=== PATIENT | male | born 1965 | race Caucasian/White ===

== ENCOUNTER 2019-09-01 22:34 | Inpatient (IN) | payer BC, OTHER, SELFPAY ==
--- OUTSIDE RECORDS SUMMARY | 2019-09-01 22:36 | XMS REPORT | Clinical Summary ---
:1965 Author Organization [facility] Address [address] [place] [id number] Care Team Providers Name Role Phone Asked, Pcp Primary Care Provider Unavailable Allergies Active Allergy Reactions Severity Noted Date Comments Ciprofloxacin 01/05/2016 Medications No known medications Active Problems Problem Noted Date External hemorrhoids 01/05/2016 Social History Tobacco Use Types Packs/Day Years Used Date Never Smoker Alcohol Use Drinks/Week oz/Week Comments Yes 2 Standard drinks or equivalent 2.0 Sex Assigned at Date Recorded Not on file Job Start Date Occupation Industry Not on file Not on file Not on file Travel History Travel Start Travel End No recent travel history available. 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
--- OUTSIDE RECORDS SUMMARY | 2019-09-01 22:37 | XMS REPORT | Continuity of Care Document ---
:1965 Author Organization [employer] Care Team Providers Name Role Phone [employer] Unavailable Un available Problems Problem Status Onset Classification Date Comments Sourc e Date Reported Diverticulosis of 11/25/19 11/26/2017 [facility] large intestine 18 without perforation or abscess with bleeding Second degree 11/25/19 11/26/2017 [facility] hemorrhoids 18 Crohn's disease Active Problem 11/26/2017 Satish gical (disorder[facility] [place] Hemorrhoids Active Problem 11/26/2017 Surgica l (disorder) [facility] [place] Medications Medication Details Route Status Patient Ordering Order Source Instructions Provider Date propofol 50 mg = 5 mL, Inactive 11/24/ [facility] Emulsion, IV, 2018 Once, first dose 11/24/17 8:22:00 CDT, stop date 11/24/17 8:22:00 CDT propofol 50 mg = 5 mL, Inactive 11/24/ [facility] Emulsion, IV, 2017 Once, first dose 11/24/17 8:19:00 CDT, stop date 11/24/17 8:19:00 CDT propofol 50 mg = 5 mL, Inactive 11/24/ [facility] Emulsion, IV, 2017 Once, first dose 11/24/17 8:16:00 CDT, stop date 11/24/17 8:16:00 CDT lidocaine 3 mL, Inactive 11/24/ [facility] Injection, 2018 IV, Once, first dose 11/24/17 8:13:00 CDT, stop date 11/24/17 8:13:00 CDT propofol 150 mg = 15 Inactive 11/24/ [facility] mL, Emulsion, 2018 IV, Once, first dose 11/24/17 8:13:00 CDT, stop date 11/24/17 8:13:00 CDT Lidocaine 2% 0.2 0.2 mL, Inactive 11/24/ [facility] mL IV Start Injection, 2017 [[place]] Subcutaneous, Once PRN for other (see comment), first dose 11/24/17 7:07:00 CDT LR 1,000 mL 1,000 mL, IV, Inactive 11/24/ [facility] 30 mL/hr, 2017 start date 11/24/17 7:07:00 CDT Misc Medication 800 mL, Inactive Corin 02/04/ Surgica l Soln-IV, IV, 2016 Specialty Once, first Hospital dose 02/05/16 of [place] 10:21:00 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, [place] stop date 02/05/16 10:21:00 CNC LATHE 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 propofol 60 mg = 6 mL, Inactive Corin 02/04/ Surgical Emulsion, IV, 2016 Specialty Once, first Hospital dose 02/05/16 [place] 7:21:00 CNC LATHE 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, [place] stop date 02/05/16 7:21:00 CNC LATHE 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 propofol 60 mg = 6 mL, Inactive Corin 02/04/ Surgical Emulsion, IV, 2016 Specialty Once, first Hospital dose 02/05/16 [place] 7:15:00 CNC LATHE 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, [place] stop date 02/05/16 7:15:00 CNC LATHE 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 Humira mg, Active 02/04/ Surgical Subcutaneous, 2016 Specialty q2wk, 0 Hospital Refill(s) of [place] Humira mg, Active 02/04/ [facility] Subcutaneous, 2016 q2wk, 0 Refill(s) lidocaine 2 mL, Inactive Corin 02/04/ Surgical Injection, 2016 Specialty IV, Once, Hospital first dose of [place] 02/05/16 [place] 7:11:00 CNC LATHE 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, stop date 02/05/16 7:11:00 CNC LATHE 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 propofol 180 mg = 18 Inactive Corin 02/04/ Surgical mL, Emulsion, 2016 Specialty IV, Once, Hospital first dose of [place] 02/05/16 [place] 7:11:00 CNC LATHE 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, stop date 02/05/16 7:11:00 CNC LATHE 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 Lidocaine 2% 0.2 0.2 mL, Inactive Marisel 02/04/ Surgic al mL IV Start Injection, 2015 Specialty [[facility]] Subcutaneous, Hospit al Once PRN for of [place] other (see [facility] comment), first dose 02/05/16 7:08:00 CNC LATHE 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 LR 1,000 mL 1,000 mL, IV, Inactive Marisel 02/04/ Surgi nichole 30 mL/hr, 2015 Specialty start date Hospital 02/05/16 [facility] [place] 7:08:00 CNC LATHE 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 [place] LR 1,000 mL 1,000 mL, IV, Inactive Daniel 12/08/ Surgi nichole 75 mL/hr, 2016 Specialty start date Hospital 12/09/15 of [place] 15:45:00 CDT [place] Saline Lock Flush 10 mL, Soln, Inactive Dainel 12/08/ Surgical IV Push, As 2016 Specialty Indicated PRN Hospital for flush, of [place] first dose [place] 12/09/15 15:45:00 CDT diphenhydrAMINE 25 mg = 0.5 Inactive Daniel 12/08/ Satish gical mL, 2015 Specialty Injection, IV Hospital Push, Once of [place] PRN for [place] itching, first dose 12/09/15 15:45:00 CDT ondansetron 8 mg = 1 Inactive Daniel 12/08/ Surgical tabs, 2015 Specialty Tab-Dis, Hospital Oral, Once of [place] PRN for [place] nausea/vomiti ng, first dose 12/09/15 15:45:00 CDT labetalol 5 mg = 1 mL, Inactive Daniel 12/08/ Surgical Injection, IV 2015 Specialty Push, As Hospital Indicated PRN of [place] for [place] hypertension, first dose 12/09/15 15:45:00 CDT Dilaudid 0.5 mg = 0.25 Inactive Daniel 12/08/ Surgical mL, 2016 Specialty Injection, IV Hospital Push, q10min of [place] PRN for pain [place] severe (7-10), first dose 12/09/15 15:45:00 CDT Xopenex 0.63 mg/3 0.63 mg = 3 Inactive Daniel 12/08/ S urgical mL inhalation mL, Soln, 2016 Specialt y solution NEB, Once PRN Hospital for wheezing, of [place] first dose [place] 12/09/15 15:45:00 CDT Demerol HCl 12.5 mg = Inactive Daniel 12/08/ Surgical 0.25 mL, 2016 Specialty Injection, IV Hospital Push, Once of [place] PRN for [place] shivers, first dose 12/09/15 15:45:00 CDT albuterol 2.5 2.5 mg = 3 Inactive Daniel 12/08/ Surgic al mg/3 mL (0.083%) mL, Soln, 2016 Speci alty inhalation NEB, Once PRN Hospita l solution for wheezing, of [place] first dose [place] 12/09/15 15:45:00 CDT Lactated Ringers IV, start Hayley Davis 12/08/ Surg ical Injection date 12/09/152015 Specialt y 15:44:00 CDT, Hospital stop date of [place] 12/09/15 [place] 15:44:00 CDT ondansetron 4 mg = 2 mL, Inactive Daniel 12/08/ Surgic al Injection, 2016 Specialty IV, Once, Hospital first dose of [place] 12/09/15 [place] 15:31:00 CDT, stop date 12/09/15 15:31:00 CDT metroNIDAZOLE 500 mg, Inactive Daniel 12/08/ Surgical Soln-IV, IV, 2016 Specialty Once, first Hospital dose 12/09/15 [place] 15:16:00 CDT, [place] stop date 12/09/15 15:16:00 CDT dexamethasone 8 mg = 2 mL, Inactive Daniel 12/08/ Surg ical Injection, 2016 Specialty IV, Once, Hospital first dose of [place] 12/09/15 [place] 15:13:00 CDT, stop date 12/09/15 15:13:00 CDT fentaNYL 100 mcg = 2 Inactive Daniel 12/08/ Surgical mL, 2016 Specialty Injection, Hospital IV, Once, of [place] first dose [place] 12/09/15 15:10:00 CDT, stop date 12/09/15 15:10:00 CDT lidocaine 3 mL, Inactive Daniel 12/08/ Surgical Injection, 2016 Specialty IV, Once, Hospital first dose of [place] 12/09/15 [place] 15:10:00 CDT, stop date 12/09/15 15:10:00 CDT propofol 150 mg = 15 Inactive Daniel 12/08/ Surgical mL, Emulsion, 2016 Specialty IV, Once, Hospital first dose of [place] 12/09/15 [place] 15:10:00 CDT, stop date 12/09/15 15:10:00 CDT Misc Medication 1,000 mL, Inactive Daniel 12/08/ Surgi nichole Soln-IV, IV, 2016 Specialty Once, first Hospital dose 12/09/15 [place] 15:07:00 CDT, [place] stop date 12/09/15 15:07:00 CDT midazolam 1 mg = 1 mL, Inactive Daniel 12/08/ Surgical Injection, 2016 Specialty IV, Once, Hospital first dose of [place] 12/09/15 [place] 15:05:00 CDT, stop date 12/09/15 15:05:00 CDT fentaNYL 50 mcg = 1 Inactive Daniel 12/08/ Surgical mL, 2016 Specialty Injection, Hospital IV, Once, of [place] first dose [place] 12/09/15 15:05:00 CDT, stop date 12/09/15 15:05:00 CDT fentaNYL 50 mcg = 1 Inactive Daniel 12/08/ Surgical mL, [address] [facility] Injection, [facility] IV, Once, of [place] first dose [place] 12/09/15 15:01:00 CDT, stop date 12/09/15 15:01:00 CDT midazolam 1 mg = 1 mL, Inactive Daniel 12/08/ Surgical Injection, 2015 Specialty IV, Once, Hospital first dose of [place] 12/09/15 [place] 15:01:00 CDT, stop date 12/09/15 15:01:00 CDT Flagyl IVPB 500 mg, Inactive Mallory 12/08/ Surgical Soln-IV, IV [address] [facility] Piggyback, [facility] Once, infuse of [place] over 60 [place] minutes, first dose 12/09/15 14:00:00 CDT, stop date 12/09/15 14:00:00 CDT, Prophylaxis LR 1,000 mL 1,000 mL, IV, Inactive Vasquez 12/08/ Surgi nichole 30 mL/hr, 2015 Specialty start date Hospital 12/09/15 [place] 13:22:00 CDT [place] Lidocaine 2% 0.2 0.2 mL, Inactive Vasquez 12/08/ Surgic al mL IV Start Injection, 2015 Specialty [[facility]] Subcutaneous, Hospit al Once PRN for of [place] other (see [facility] comment), first dose 12/09/15 13:22:00 CDT Humira 80 mg, No Longer 12/07/ Surgical Subcutaneous, Active 2015 Specialty q2wk, 0 Hospital Refill(s), of [place]ns [place] Humira 80 mg, No Longer 12/07/ [facility] Subcutaneous, Active 2015 q2wk, 0 Refill(s), crohns Allergies, Adverse Reactions, Alerts Substance Category Reaction Severity Reaction Status Date Comments S ource type Reported Cipro Assertion rash Drug Active [facility] allergy Immunizations No Data Provided for This Section Results No Data Provided for This Section Pathology Reports No Data Provided for This Section Diagnostic Reports No Data Provided for This Section Consultation Notes No Data Provided for This Section Discharge Summaries No Data Provided for This Section History and Physicals No Data Provided for This Section Vital Signs Vital Sign Value Date Comments Source Peripheral Pulse Rate 82 11/24/2017 [facility] Respitory Rate 14 11/24/2017 [facility] Systolic (mm Hg) 124 11/24/2017 [facility] Diastolic (mm Hg) 81 11/24/2017 [facility] Systolic (mm Hg) 130 11/24/2017 [facility] Diastolic (mm Hg) 82 11/24/2017 [facility] Respitory Rate 20 11/24/2017 [facility] Respitory Rate 16 11/24/2017 [facility] Heart Rate 57 11/24/2017 [facility] Systolic (mm Hg) 110 11/24/2017 [facility] Diastolic (mm Hg) 65 11/24/2017 [facility] Temperature Oral (F) 36.2 [place] 11/24/2017 [facility] Heart Rate 57 11/24/2017 [facility] Temperature Oral (F) 36.7 [place] 11/24/2017 [facility] Peripheral Pulse Rate 58 11/24/2017 [facility] Weight Measured 96 11/24/2017 [facility] Height 177 cm 11/24/2017 [facility] Weight Measured 96 11/19/2017 [facility] Height 177 cm 11/19/2017 [facility] Systolic (mm Hg) 127/83 02/05/2016 [facility] [place] Respitory Rate 16 [facility]/05/[facility] [place] Peripheral Pulse Rate 58 02/05/2016 [facility]ic [facility] [place] Systolic (mm Hg) 127/83 02/05/2016 [facility] [place] Respitory Rate 18 02/05/2016 [facility] [place] Heart Rate 62 02/05/2016 [facility] [place] Systolic (mm Hg) 104/73 02/05/2016 [facility] [place] Heart Rate 56 02/05/2016 [facility] [place] Respitory Rate 16 02/05/[facility] [place] Heart Rate 61 02/05/2016 Surgical [facility] [place] Temperature Oral (F) 37.1 Estella 02/05/2016 [facility] [place] Weight 30.64 02/05/2016 Surgical Spec[facility] [place] Height 177 cm 02/05/2016 Surgical Specia [facility] [place] Weight 96 02/05/2016 [facility] [place] Peripheral Pulse Rate 69 02/05/2016 Surgic al [facility] [place] Temperature Oral (F) 36.5 [place] [facility] [place] Weight 30.42 01/18/2016 [facility] [place] Height 177.80 cm 01/18/2016 [facility] [place] Weight 96.16 01/18/2016 [facility] [place] Peripheral Pulse Rate 77 12/09/2015 Surgic [facility] [place] Systolic (mm Hg) 157/93 12/09/2015 [facility] [place] Respitory Rate 16 12/09/2015 [facility] [place] Heart Rate 68 12/09/2015 [facility] [place] Systolic (mm Hg) 139/98 12/09/2015 [facility] [place] Respitory Rate 14 12/09/[facility] [place] Respitory Rate 12 12/09/2015 [facility] [place] Systolic (mm Hg) 150/85 12/09/2015 [facility] [place] Heart Rate 70 12/09/2015 [facility] [place] Heart Rate 75 12/09/2015 [facility] [place] Temperature Oral (F) 36.7 Estella [facility]09[facility] [place] Height 177.80 cm 12/09/2015 [facility] [place] Weight 30.42 12/09/2015 Surgical [facility] [place] Weight 96.16 12/09/2015 [facility] [place] Temperature Oral (F) 36.9 Est[place] [facility] [place] Peripheral Pulse Rate 63 12/09/2015 [facility]ic [facility] [place] Peripheral Pulse Rate 68 12/08/2015 [facility]ic [facility] [place] Weight 96.16 12/08/2015 Surgical [facility] [place] Height 178 cm 12[facility]08/2015 [facility] [place] Weight 30.35 12/08/2015 Surgical [facility] [place] Encounters Location Location Encounter Encounter Reason Attending ADM DC Stat us Source Details Type Number For Provider Date Date Visit [facility] Outpatient [id number] Ali 12/08 12/08 Discharged Mazariegos rgical Mallory /2015 [facility]ty [facility] Outpatient [id number] Jaya 02/04 02/04 Active Surgi nichole Arroyo /2015 Specialty [facility] Outpatient [id number] Jaya 11/24 11/24 Active Surgi [facility] Dina /2017 Specialty [facility] Outpatient [id number] [place] 11/24 11/24 CUSTODIAL I Teja Arroyo /2017 [facility] Procedures Procedure Code Date Perfomer Comments Source COLONOSCOPY 11/24/2017 auto-populated Surgical FLEXIBLE; from documented Specialty DIAGNOSTIC; INCL. surgical case [facility] [place] SPECIMENS [id number] JANET Singh (Other)<sup>1</mazariegos p> EXCISION FULL 12/09/2015 Mallory 3auto-populated Surgic al THICKNESS TUMOR from documented Spec ialty BY PROCTOTOMY surgical case [facility] of [id number] [place] (Other)<sup>3</mazariegos p> Cholecystectomy<s [id number] 02/27/2014 1at yarsanism Surg ical up>1</sup> [place] Specialty [facility] incisional hernia 02/28/2008 Surgica l Specialty [facility] colon 02/27/2003 2due to crohns. Surgical resction<sup>2</s Special ty up> [facility] Colonoscopy [id number] Surgical Specialty [facility] Assessment and Plan No Data Provided for This Section Plan of Care No Data Provided for This Section Social History Social History Date Source Social History TypeResponse 12/08/2015 [facility] Smoking Status Never smoker Family History No Data Provided for This Section Advance Directives No Data Provided for This Section Functional Status No Data Provided for This Section
--- OUTSIDE RECORDS SUMMARY | 2019-09-01 22:38 | XMS REPORT | Continuity of Care Document ---
:1965 Author Organization [facility] t Address [address] [place] [address] Care Team Providers Name Role Phone Asked, Pcp Primary Care Physician Unavailable Dina Attending Clinician Dina Admitting Clinician Problems Condition Condition Condition Status Onset Resolution Last Treating Co mments Source Name Details Category Date Date Treatment Clinician Date External External Disease Active 2015-02 [place] hemorrhoid hemorrhoid 03-06 Me thodi s s 00:00: st 00 Crohn's Problem Active 2017-11-26 [place] disease 04:00:48 l (disorder) Crohn's Her harvey disease (disorder) Active Problem 11/26/[address] [facility] Hemorrhoid Problem Active 2017-11-26 M emoria s 04:00:48 l (disorder) Luis M n Hemorrhoid s (disorder) Active Problem 11/26/2017 [facility] Diverticul Problem 2017-11-26 2017-11-26 Memoria osis of 11-24 04:00:48 04:00:48 l large 13:32: Teja intestine Diverticul 00 without osis of perforatio large n or intestine abscess without with perforatio bleeding n or abscess with bleeding 8 11/26/2017 [facility] Second Problem 2017-11-26 2017-11-26 M emoria degree 11-24 04:00:48 04:00:48 l hemorrhoid Second 13:31: Herm agustin s degree 00 hemorrhoid s 11/24/2017 11/26/2017 [facility] Allergies, Adverse Reactions, Alerts Allergy Allergy Status Severity Reaction(s) Onset Inactive Treating Comm ents Source Name Type Date Date Clinician Michael Zicooper Active 2015-02 [place] xacin ty to 03-06 Methodi adverse 00:00: st reaction 00 s to drug Cipro Cipro Active Memoria l Teja Social History Social Habit Start Date Stop Date Quantity Comments Source Sex Assigned At [facility] ethodist Alcohol intake 2016-01-05 2016-01-05 Current drinker [place] 00:00:00 00:00:00 of alcohol (finding) Smoking Status Start Date Stop Date Source Social History [facility] Medications Ordered Filled Start Stop Current Ordering Indication Dosage Frequency Signature Comments Components Source Medication Medication Date Date Medication? Clinician (SIG) Name Name propofol 2017- No 50 mg = 5 [place] 9-28 mL, l 13:22: Emulsion, Teja 00 IV, Once, first dose 11/24/17 8:22:00 CDT, stop date 11/24/17 8:22:00 CDT propofol 2017-0 No 50 mg = 5 [place] 9-28 mL, l 13:19: Emulsion, Teja 00 IV, Once, first dose 11/24/17 8:19:00 CDT, stop date 11/24/17 8:19:00 CDT propofol 2018-0 No 50 mg = 5 [place] 9-28 mL, l 13:16: Emulsion, [place] 00 IV, Once, first dose 11/24/17 8:16:00 CDT, stop date 11/24/17 8:16:00 CDT lidocaine 2018-0 No 3 mL, Memoria -28 Injection, l 13:13: IV, Once, [place] 00 first dose 11/24/17 8:13:00 CDT, stop date 11/24/17 8:13:00 CDT propofol 2018-0 No 150 mg = Memor ia -28 15 mL, l 13:13: Emulsion, [place] 00 IV, Once, first dose 11/24/17 8:13:00 CDT, stop date 11/24/17 8:13:00 CDT Lidocaine 2018-0 Yes 0.2 mL, Memor ia 2% 0.2 mL 11-24 Injection, l IV Start 12:07: Subcutaneo [facility]] 00 , Once PRN for other (see comment), first dose 11/24/17 7:07:00 CDT LR 1,000 mL 2017- No 1,000 mL, M emoria 11-24 IV, 30 l 12:07: mL/hr, [place] start date 11/24/17 7:07:00 CDT Misc 2015-02 No Simon 800 mL, Memoria Medication - Corin Soln-IV, l 16:21: IV, Once, Teja 00 first dose 02/05/16 10:21:00 HISTORY TEACHER, stop date 02/05/16 10:21:00 HISTORY TEACHER propofol 2015-02 No Simon 60 mg = 6 Mem oria - Corin mL, l 13:21: Emulsion, Teja 00 IV, Once, first dose 02/05/16 7:21:00 HISTORY TEACHER, stop date 02/05/16 7:21:00 HISTORY TEACHER propofol 2015-02 No Simon 60 mg = 6 Mem oria - Corin mL, l 13:15: Emulsion, [place] 00 IV, Once, first dose 02/05/16 7:15:00 HISTORY TEACHER, stop date 02/05/16 7:15:00 HISTORY TEACHER Humira 2015-02 Yes mg, Memoria - Subcutaneo l 13:13: us, q2wk, Teja 00 0 Refill(s) Humira 2015-02 Yes mg, Memoria - Subcutaneo l 13:13: us, q2wk, [place] 00 0 Refill(s) lidocaine 2015-02 No Simon 2 mL, Memori a 04-07 Corin Injection, l 13:11: IV, Once, Teja 00 first dose 02/05/16 7:11:00 HISTORY TEACHER, stop date 02/05/16 7:11:00 HISTORY TEACHER propofol 2015-02 No Simon 180 mg = [place] - Corin 18 mL, l 13:11: Emulsion, [place] 00 IV, Once, first dose 02/05/16 7:11:00 HISTORY TEACHER, stop date 02/05/16 7:11:00 HISTORY TEACHER Lidocaine 2015-02 No Homero 0.2 mL, [place] 2% 0.2 mL 04-07 Marsiel TUTTLE Injection, l IV Start 13:08: Subcutaneo [facility] [[facility]] 00 us, Once PRN for other (see comment), first dose 02/05/16 7:08:00 HISTORY TEACHER LR 1,000 mL 2015-02 No Homero 1,000 mL, Memoria 2-09 Marisel TUTTLE IV, 30 l 13:08: mL/hr, start date 02/05/16 7:08:00 HISTORY TEACHER LR 1,000 mL 2015-02 No David 1,000 mL, Memoria 0-12 Sanchez IV, 75 l 20:45: mL/hr, start date 12/09/15 15:45:00 CDT Saline Lock 2015-02 No David 10 mL, M emoria Flush 0-12 Sanchez Soln, IV l 20:45: Push, As Teja 00 Indicated PRN for flush, first dose 12/09/15 15:45:00 CDT diphenhydrA 2015-02 No David 25 mg = Memoria MINE 0-12 Sanchez 0.5 mL, l 20:45: Injection, Teja 00 IV Push, Once PRN for itching, first dose 12/09/15 15:45:00 CDT ondansetron 2015-02 No David 8 mg = 1 Memoria 0-12 Sanchez tabs, l 20:45: Tab-Dis, Teja 00 Oral, Once PRN for nausea/vom iting, first dose 12/09/15 15:45:00 CDT labetalol 2015-02 No David 5 mg = 1 M emoria 0-12 Sanchez mL, l 20:45: Injection, [place] 00 IV Push, As Indicated PRN for hypertensi on, first dose 12/09/15 15:45:00 CDT Dilaudid 2015-02 No David 0.5 mg = Me moria 0-12 Sanchez 0.25 mL, l 20:45: Injection, Teja 00 IV Push, q10min PRN for pain severe (7-10), first dose 12/09/15 15:45:00 CDT Xopenex 2015-02 No David 0.63 mg = Me moria 0.63 mg/3 0-12 Sanchez 3 mL, l mL 20:45: Soln, NEB, [place] inhalation 00 Once PRN solution for wheezing, first dose 12/09/15 15:45:00 CDT Demerol HCl 2016-1 No David 12.5 mg = Memoria 0-12 Sanchez 0.25 mL, l 20:45: Injection, Teja 00 IV Push, Once PRN for shivers, first dose 12/09/15 15:45:00 CDT albuterol 2015-02 No David 2.5 mg = 3 Memoria 2.5 mg/3 mL 0-12 Sanchez mL, Soln, l (0.083%) 20:45: NEB, Once Herm agustin inhalation 00 PRN for solution wheezing, first dose 12/09/15 15:45:00 CDT Lactated 2015-02 No Michael IV, start M emoria Ringers 0-12 Ryan date l Injection 20:44: 12/09/15 Herm agustin 00 15:44:00 CDT, stop date 12/09/15 15:44:00 CDT ondansetron 2015-02 No David 4 mg = 2 Memoria 0-12 Sanchez mL, l 20:31: Injection, [place] 00 IV, Once, first dose 12/09/15 15:31:00 CDT, stop date 12/09/15 15:31:00 CDT metroNIDAZO 2015-02 No David 500 mg, Memoria LE 0-12 Sanchez Soln-IV, l 20:16: IV, Once, [place] 00 first dose 12/09/15 15:16:00 CDT, stop date 12/09/15 15:16:00 CDT dexamethaso 2015-02 No David 8 mg = 2 Memoria ne 0-12 Sanchez mL, l 20:13: Injection, [place] 00 IV, Once, first dose 12/09/15 15:13:00 CDT, stop date 12/09/15 15:13:00 CDT fentaNYL 2015-02 No David 100 mcg = M emoria 0-12 Sanchez 2 mL, l 20:10: Injection, [place] 00 IV, Once, first dose 12/09/15 15:10:00 CDT, stop date 12/09/15 15:10:00 CDT lidocaine 2015-02 No David 3 mL, [place] 0-12 Sanchez Injection, l 20:10: IV, Once, Teja 00 first dose 12/09/15 15:10:00 CDT, stop date 12/09/15 15:10:00 CDT propofol 2015-02 No David 150 mg = Me moria 0-12 Sanchez 15 mL, l 20:10: Emulsion, Teja 00 IV, Once, first dose 12/09/15 15:10:00 CDT, stop date 12/09/15 15:10:00 CDT Misc 2015-02 No David 1,000 mL, Memor ia Medication 0-12 Sanchez Soln-IV, l 20:07: IV, Once, first dose 12/09/15 15:07:00 CDT, stop date 12/09/15 15:07:00 CDT midazolam 2015-02 No David 1 mg = 1 M emoria 0-12 Sanchez mL, l 20:05: Injection, [place] 00 IV, Once, first dose 12/09/15 15:05:00 CDT, stop date 12/09/15 15:05:00 CDT fentaNYL 2015-02 No David 50 mcg = 1 Memoria 0-12 Sanchez mL, l 20:05: Injection, IV, Once, first dose 12/09/15 15:05:00 CDT, stop date 12/09/15 15:05:00 CDT fentaNYL 2015-02 No David 50 mcg = 1 Memoria 0-12 Sanchez mL, l 20:01: Injection, IV, Once, first dose 12/09/15 15:01:00 CDT, stop date 12/09/15 15:01:00 CDT midazolam 2015-02 No David 1 mg = 1 M emoria 0-12 Sanchez mL, l 20:01: Injection, IV, Once, first dose 12/09/15 15:01:00 CDT, stop date 12/09/15 15:01:00 CDT Flagyl IVPB 2015-02 No Ali 500 mg, Mem oria 0-12 Mallory Soln-IV, l 19:00: IV [place] 00 Piggyback, Once, infuse over 60 minutes, first dose 12/09/15 14:00:00 CDT, stop date 12/09/15 14:00:00 CDT, Prophylaxi s LR 1,000 mL 2015-02 No Marito K 1,000 mL, Memoria 0-12 Ovalle IV, 30 l 18:22: mL/hr, [place] 00 start date 12/09/15 13:22:00 CDT Lidocaine 2015- No Marito K 0.2 mL, Mem oria 2% 0.2 mL 0-12 [place] Injection, l IV Start 18:22: Subcutaneo Her harvey [[place]] 00 us, Once PRN for other (see comment), first dose 12/09/15 13:22:00 CDT Humira 2015-02 No 80 mg, Memoria 0-11 Subcutaneo l 14:47: us, q2wk, [place] 00 0 Refill(s), crohns Humira 2015-02 No 80 mg, Memoria 0-11 Subcutaneo l 14:47: us, q2wk, Teja 00 0 Refill(s), crohns Vital Signs Vital Name Observation Time Observation Value Comments Source Respitory Rate 2017-11-24 15:45:00 Memori al [place] Systolic (mm Hg) 2017-11-24 15:45:00 Juan Pablo rial [place] Diastolic (mm Hg) 2017-11-24 15:45:00 Mem orial [place] Systolic (mm Hg) 2017-11-24 13:40:00 Juan Pablo rial Te[place] Diastolic (mm Hg) 2017-11-24 13:40:00 Mem orial [place] Respitory Rate 2017-11-24 13:40:00 Memori al Teja Respitory Rate 2017-11-24 13:30:00 Memori al Teja Heart Rate 2017-11-24 13:30:00 Memorial [place] Systolic (mm Hg) 2017-11-24 13:30:00 Juan Pablo rial [place] Diastolic (mm Hg) 2017-11-24 13:30:00 Mem orial Teja Temperature Oral (F) 2017-11-24 13:20:00 36.2 [facility] [place] Heart Rate 2017-11-24 13:20:00 [facility] [place] Temperature Oral (F) 2017-11-24 12:03:00 36.7 [facility] [place] Height 2017-11-24 12:03:00 177 cm Memorial Teja Height 2017-11-19 19:48:00 177 cm [facility] [place] Systolic (mm Hg) 2016-02-05 14:27:00 Juan Pablo rial Teja Respitory Rate 2016-02-05 14:27:00 Memori al [place] Systolic (mm Hg) 2016-02-05 13:40:00 Juan Pablo rial [place] Respitory Rate 2016-02-05 13:40:00 Memori al Teja Heart Rate 2016-02-05 13:40:00 [facility] [place] Systolic (mm Hg) 2016-02-05 13:30:00 Juan Pablo rial Teja Heart Rate 2016-02-05 13:30:00 [facility] [place] Respitory Rate 2016-02-05 13:30:00 Memori al [place] Heart Rate 2016-02-05 13:20:00 [facility] [place] Temperature Oral (F) 2016-02-05 13:20:00 37.1 [facility] [place] Weight 2016-02-05 13:10:00 [facility] [place] Height 2016-02-05 13:10:00 177 cm [facility] [place] Temperature Oral (F) 2016-02-05 13:10:00 36.5 [facility] [place] Weight 2016-01-18 22:32:00 [facility] [place] Height 2016-01-18 22:32:00 177.80 cm [facility] [place] Systolic (mm Hg) 2015-12-09 21:56:00 Juan Pablo rial [place] Respitory Rate 2015-12-09 21:56:00 Memori al [place] Heart Rate 2015-12-09 21:20:00 [facility] [place] Systolic (mm Hg) 2015-12-09 21:20:00 Juan Pablo rial [place] Respitory Rate 2015-12-09 21:20:00 Memori al Teja Respitory Rate 2015-12-09 21:10:00 Memori al [place] Systolic (mm Hg) 2015-12-09 21:10:00 Juan Pablo rial [place] Heart Rate 2015-12-09 21:10:00 [facility] [place] Heart Rate 2015-12-09 21:00:00 [facility] [place] Temperature Oral (F) 2015-12-09 20:40:00 36.7 [facility] [place] Height 2015-12-09 18:26:00 177.80 cm [facility] [place] Weight 2015-12-09 18:26:00 [facility] [place] Temperature Oral (F) 2015-12-09 18:26:00 36.9 [facility] [place] Height 2015-12-08 14:35:00 178 cm [facility] [place] Weight 2015-12-08 14:35:00 [facility] [place] Procedures Procedure Date / Time Performed Performing Clinician [facility] e COLONOSCOPY FLEXIBLE; 2017-11-24 13:15:00 Randy Silva DIAGNOSTIC; INCL. COLLECTION OF SPECIMENS [id number] (Other)<sup>1</sup> EXCISION FULL THICKNESS 2015-12-09 20:26:00 Linwood Tejada TUMOR BY PROCTOTOMY [id number] (Other)<sup>3</sup> Cholecystectomy<sup>1</hearn 2014-02-27 00:00:00 Me morial [place] p> incisional hernia 2008-02-28 00:00:00 [facility] ermann colon 2003-02-27 00:00:00 [facility] harvey resction<sup>2</sup> Colonoscopy [facility] Plan of Care Planned Activity Planned Date Details Comments Source Future Scheduled 2019-09-28 INFLUENZA VACCINE [place] Test 00:00:00 [code = INFLUENZA VACCINE] Future Scheduled 2015-12-24 COLONOSCOPY SCREENING [place] Test 00:00:00 [code = COLONOSCOPY SCREENING] Future Scheduled 2015-12-24 SHINGLES VACCINES [place] Test 00:00:00 (#1) [code = SHINGLES VACCINES (#1)] Encounters Start End Encounter Admission Attending Care Care Encounter Source Date/Time Date/Time Type Type Clinicians Facility Department ID 2018-10-26 2018-10-26 Emergency E [facility] FB [id number] FB 13:47:00 13:47:00 2017-11-24 2017-11-24 Outpatient [place], [id number] 06:43:27 09:37:00 Jaya Navarro 2016-02-05 2016-02-05 [place] [id number] Memoria 06:23:42 08:10:00 [facility] 2015-12-09 2015-12-09 [place] [id number] Memoria 13:06:35 16:54:00 l [facility] [place] Results This patient has no known results.
[2019-09-01] MEDS ORDERED: PROMETHAZINE INJ 25 MG/ML AMP ONE (23:09)
[2019-09-01] MEDS ORDERED: NA CHLORIDE 0.9% 1,000 ML ONE (23:09)
[2019-09-01 23:25] LABS: Absolute Lymphocytes (CBC) 3.8 K/uL (0.7-4.9); Basophils % 0.4 % (0-1.3); Hematocrit 44.7 % (39.6-49.0); Lymphocytes % 30.1 % (15.3-44.8); MPV 8.7 fL (7.6-11.3); RBC Red Blood Cell Count 4.98 M/uL (4.33-5.43)
[2019-09-01 23:32] LABS: Albumin 3.7 g/dL (3.4-5.0); Bilirubin Direct 0.2 mg/dL (0-0.2); Bilirubin Total 0.7 mg/dL (0.2-1.0); Potassium 3.6 mmol/L (3.5-5.1)
[2019-09-02 00:10] LABS: Urine Blood TRACE (NEG); Urine Glucose NEGATIVE (NEG); Urine Protein TRACE (NEG); Urine Specific Gravity >1.030 (1.005-1.030)
[2019-09-02] MEDS ORDERED: MEPERIDINE HCL 50 MG/ML ONE (00:51)
[2019-09-02] MEDS ORDERED: CEFTRIAXONE/SWI 1gm 1 GM/10 ML SYR ONE (01:41)
[2019-09-02] MEDS ORDERED: METRONIDAZOLE 500mg IVPB 500 MG/100 ML BAG IV ONE (01:41)
[2019-09-02] MEDS ORDERED: METHYLPREDNISOLONE 125 MG INJ ONE (01:41)
--- NOTE | 2019-09-02 01:54 | ER ---
Nurse's Notes [facility] Name: Tony Wen Age: 53 yrs Sex: Male : 1965 Arrival Date: 09/01/2019 Time: 22:37 Bed 8 Private MD: Diagnosis: Crohn's disease [regional enteritis];Possible small bowel obstruction Presentation: 08/31 22:52 Chief complaint: Patient states: C/O severe abdominal boating and abdominal cramping wh that started yesterday. Pt feels nauseated with some vomiting. Pt states Hx of Crohns. Coronavirus screen: Proceed with normal triage. Patient denies a cough. Patient denies shortness of breath or difficulty breathing. Patient denies measured and/or subjective temperature greater than 100.4F prior to today's visit. Patient denies travel on a cruise ship or to a country the [facility] currently lists as an affected area. Patient denies contact with known and/or suspected case of COVID-19. Ebola Screen: Patient negative for fever greater than or equal to 101.5 degrees Fahrenheit, and additional compatible Ebola Virus Disease symptoms Patient denies exposure to infectious person. Initial Sepsis Screen: Does the patient meet any 2 criteria?. Initial Sepsis Screen: Does the patient meet any 2 criteria? No. Patient's initial sepsis screen is negative. Does the patient have a suspected source of infection? Yes: Acute abdominal pain. Risk Assessment: Do you want to hurt yourself or someone else? Patient reports no desire to harm self or others. Onset of symptoms was September 01, 2019. 22:52 Method Of Arrival: Ambulatory 22:52 Acuity: LEANNE 3 Historical: - Allergies: 22:59 Cipro; - Home Meds: 22:59 Humira Injection [Active]; - PMHx: 22:59 Chrons Disease; - PSHx: 22:59 Cholecystectomy; Colon Resection; Hernia repair; - Immunization history:: Adult Immunizations up to date. - Family history:: not pertinent. - Social history:: Smoking status: Patient/guardian denies using. - Hospitalizations: : No recent hospitalization is reported. Screenin:55 Abuse screen: Denies threats or abuse. Denies injuries from another. Nutritional screening: No deficits noted. Tuberculosis screening: No symptoms or risk factors identified. Fall Risk None identified. Assessment: 22:56 General: Appears in no apparent distress. Behavior is calm, cooperative, appropriate wh for age. Pain: Complains of pain in abdomen diffusely Pain does not radiate. Pain currently is 5 out of 10 on a pain scale. Quality of pain is described as crampy, pressure, Pain began 1 day ago. Is intermittent. Neuro: Level of Consciousness is awake, alert, obeys commands, Oriented to person, place, time, situation, Appropriate for age. Cardiovascular: Heart tones S1 S2. Respiratory: Airway is patent Respiratory effort is even, unlabored, Respiratory pattern is regular, symmetrical, Breath sounds are clear bilaterally. GI: Abdomen is flat, distended, Bowel sounds present X 4 quads. Abd is soft Abdomen is tender to palpation Abd is rigid. GI: Reports nausea, vomiting. : No signs and/or symptoms were reported regarding the genitourinary system. EENT: No signs and/or symptoms were reported regarding the EENT system. Derm: Skin is intact, is healthy with good turgor, Skin is pink, warm \T\ dry. normal. Musculoskeletal: Circulation, motion, and sensation intact. 23:15 Reassessment: CT staff informed oral contrast consumed by the patient. rr5 09/01 00:20 Reassessment: Patient appears in no apparent distress at this time. No changes from previously documented assessment. Patient and/or family updated on plan of care and expected duration. Pain level reassessed. Patient is alert, oriented x 3, equal unlabored respirations, skin warm/dry/pink. 01:40 Reassessment: Patient appears in no apparent distress at this time. No changes from previously documented assessment. Patient and/or family updated on plan of care and expected duration. Pain level reassessed. Patient is alert, oriented x 3, equal unlabored respirations, skin warm/dry/pink. Vital Signs: 08/31 22:52 BP 144 / 109; Pulse 69; Resp 18; Temp 99.4; Pulse Ox 98% ; Weight 95.25 kg; Height 5 wh ft. 10 in. (177.80 cm); Pain 5/10; 09/01 00:00 BP 150 / 69; Pulse 54; Resp 18; Pulse Ox 99% on R/A; wh 01:30 BP 144 / 89; Pulse 56; Resp 18; Pulse Ox 97% on R/A; 02:08 BP 127 / 74; Pulse 59; Resp 17; Temp 99; Pulse Ox 98% ; rr5 08/31 22:52 Body Mass Index 30.13 (95.25 kg, 177.80 cm) ED Course: 08/31 22:37 Patient arrived in ED. ag3 22:42 Mark Hayden MD is Attending Physician. rn 22:52 Tash Pak is Primary Nurse. 22:55 Triage completed. 22:57 Arm band placed on right wrist. 22:59 Patient has correct armband on for positive identification. Bed in low position. Call light in reach. Side rails up X 1. Pulse ox on. NIBP on. 23:05 Inserted saline lock: 20 gauge in right forearm, using aseptic technique. Blood oe collected. 09/01 00:56 CT Abd/Pelvis - PO and IV Contrast In Process Unspecified. EDMS 01:51 NGT: inserted 16 Fr. via left nare. verified placement of air over stomach, verified return of gastric contents, to intermittent suction. Returned bile. Patient tolerated well. 01:53 Florin Ayala MD is Hospitalizing Provider. rn 02:17 No provider procedures requiring assistance completed. Patient admitted, IV remains in rr5 place. intact, No redness/swelling at site. Administered Medications: 08/31 23:07 Drug: NS 0.9% 1000 ml Route: IV; Rate: 1000 ml; Site: right forearm; rr5 09/01 01:49 Follow up: Response: No adverse reaction; IV Status: Completed infusion 08/31 23:08 Drug: Phenergan 12.5 mg Route: IVP; Site: right forearm; rr5 07 01:49 Follow up: Response: No adverse reaction; Nausea is decreased 00:52 Drug: Demerol 25 mg {Note: RASS 0.} Route: IVP; Site: right forearm; 01:49 Follow up: Response: No adverse reaction; Pain is decreased; RASS: Alert and Calm (0) 01:55 Drug: Demerol 25 mg {Note: rass 0.} Route: IVP; Site: right forearm; rr5 02:34 Follow up: Response: No adverse reaction; Pain is decreased; RASS: Alert and Calm (0) 01:57 Drug: SOLU-Medrol 125 mg Route: IVP; Site: right forearm; rr5 02:33 Follow up: Response: No adverse reaction 01:59 Drug: Rocephin 1 grams Route: IV; Rate: calculated rate; Site: right forearm; rr5 02:33 Follow up: Response: No adverse reaction; IV Status: Completed infusion 02:05 Drug: Flagyl 500 mg Volume: 100 ml; Route: IVPB; Rate: 200 ml/hr; Infused Over: 30 rr5 mins; Site: right forearm; 02:33 Follow up: Response: No adverse reaction; IV Status: Infusion continued upon admission Outcome: 01:53 Decision to Hospitalize by Provider. rn 02:17 Admitted to Med/surg accompanied by tech, via stretcher, room 229, with chart, Report rr5 called to colt rn 02:17 Condition: stable 02:17 Instructed on the need for admit. 02:34 Patient left the ED. Signatures: Dispatcher [employer] EDMark Graff MD MD rn Espinosa, Orlando oe Hab[place], Winsy Vijaya Law Raymond RN RN rr5
--- NOTE | 2019-09-02 01:54 | EDPHYS ---
Physician Documentation [facility] Name: Tony Wen Age: 53 yrs Sex: Male : 1965 Arrival Date: 09/01/2019 Time: 22:37 Bed 8 Private MD: ED Physician Mark Hayden HPI: 08/31 22:53 This 53 yrs old Male presents to ER via Unassigned with complaints of rn Abdominal Pain. 22:53 The patient presents with abdominal pain in the upper abdomen, abdominal distention. rn 22:53 Onset: The symptoms/episode began/occurred yesterday. The symptoms do not radiate. rn Associated signs and symptoms: Pertinent positives: nausea and vomiting, anorexia, constipation, Pertinent negatives: blood in stools, fever. The symptoms are described as achy, crampy, intermittent. Modifying factors: The symptoms are alleviated by nothing, the symptoms are aggravated by touching the area. Severity of pain: At its worst the pain was moderate in the emergency department the pain is unchanged. The patient has experienced similar episodes in the past. The patient has not recently seen a physician. Reports upper abd pain, began yesterday, assoc with nausea/vomiting, reports last normal BM 2-3 days ago, did have small BM today, feels like not passing gas today. Has crohn's but feels this is different. Told had intestinal blockage in past but cleared up without surgery. . Historical: - Allergies: 22:59 Cipro; wh - Home Meds: 22:59 Humira Injection [Active]; - PMHx: 22:59 Chrons Disease; - PSHx: 22:59 Cholecystectomy; Colon Resection; Hernia repair; - Immunization history:: Adult Immunizations up to date. - Family history:: not pertinent. - Social history:: Smoking status: Patient/guardian denies using. - Hospitalizations: : No recent hospitalization is reported. ROS: 22:53 Constitutional: Negative for fever, chills, and weight loss, Eyes: Negative for injury, rn pain, redness, and discharge, Neck: Negative for injury, pain, and swelling, Cardiovascular: Negative for chest pain, palpitations, and edema, Respiratory: Negative for shortness of breath, cough, wheezing, and pleuritic chest pain, Abdomen/GI: + abd pain/nausea/vomiting/constipation MS/Extremity: Negative for injury and deformity, Skin: Negative for injury, rash, and discoloration, Neuro: Negative for headache, weakness, numbness, tingling, and seizure. Exam: 22:53 Constitutional: This is a well developed, well nourished patient who is awake, alert, rn holding abdomen, appears uncomfortable Head/Face: Normocephalic, atraumatic. Cardiovascular: Regular rate and rhythm. No pulse deficits. Respiratory: Speaking full sentences, unlabored Abdomen/GI: soft, + tender mid-upper abdomen with fullness and tympany Skin: Warm, dry MS/ Extremity: Pulses equal, no cyanosis. Neuro: Awake and alert, GCS 15, ambulatory to room Vital Signs: 22:52 BP 144 / 109; Pulse 69; Resp 18; Temp 99.4; Pulse Ox 98% ; Weight 95.25 kg; Height 5 wh ft. 10 in. (177.80 cm); Pain 5/10; 09/01 00:00 BP 150 / 69; Pulse 54; Resp 18; Pulse Ox 99% on R/A; wh 01:30 BP 144 / 89; Pulse 56; Resp 18; Pulse Ox 97% on R/A; wh 02:08 BP 127 / 74; Pulse 59; Resp 17; Temp 99; Pulse Ox 98% ; rr5 08/31 22:52 Body Mass Index 30.13 (95.25 kg, 177.80 cm) wh MDM: 08/31 22:43 Patient medically screened. rn 09/01 01:51 Differential diagnosis: bowel obstruction, diverticulitis, enteritis, crohn's. Data rn reviewed: vital signs, nurses notes, lab test result(s), radiologic studies, CT scan, and as a result, I will admit patient. Counseling: I had a detailed discussion with the patient and/or guardian regarding: the historical points, exam findings, and any diagnostic results supporting the discharge/admit diagnosis, lab results, radiology results, the need for further work-up and treatment in the hospital. Response to treatment: the patient's symptoms have markedly improved after treatment, and as a result, I will discharge patient. Special discussion:. ED course: CT shows enteritis picture consistent with crohn's, possible developing SBO, likely pseudoobstruction 2/2 crohn's inflammation, improved with fluids/NG tube/pain medication. Has happened before and resolved without surgery. Admitted to Dr. Ayala for further management. . 08/31 22:52 Order name: Basic Metabolic Panel; Complete Time: 00:07 08/31 22:52 Order name: CBC with Diff; Complete Time: 00:07 08/31 22:52 Order name: Hepatic Function; Complete Time: 00:07 08/31 22:52 Order name: Lipase; Complete Time: 00:07 08/31 22:56 Order name: Urine Dipstick--Ancillary (enter results); Complete Time: 00:39 2 09/01 02:11 Order name: Lipid Profile [facility] 08/31 22:52 Order name: CT Abd/Pelvis - PO and IV Contrast 09/01 02:11 Order name: Lipid Profile [facility] 09/01 02:12 Order name: Abdomen 1 View (KUB) [facility] 08/31 22:52 Order name: IV Start; Complete Time: 23:10 08/31 22:52 Order name: Labs collected and sent; Complete Time: 23:10 09/01 01:23 Order name: NG Tube; Complete Time: 01:49 09/01 01:23 Order name: NPO; Complete Time: 01:48 09/01 02:11 Order name: CONS Physician Consult [facility] 09/01 02:11 Order name: Social Service Consult [facility] 09/01 02:11 Order name: NPO [facility] Administered Medications: 08/31 23:07 Drug: NS 0.9% 1000 ml Route: IV; Rate: 1000 ml; Site: right forearm; rr5 09/01 01:49 Follow up: Response: No adverse reaction; IV Status: Completed infusion 08/31 23:08 Drug: Phenergan 12.5 mg Route: IVP; Site: right forearm; rr5 09/01 01:49 Follow up: Response: No adverse reaction; Nausea is decreased wh 00:52 Drug: Demerol 25 mg {Note: RASS 0.} Route: IVP; Site: right forearm; wh 01:49 Follow up: Response: No adverse reaction; Pain is decreased; RASS: Alert and Calm (0) wh 01:55 Drug: Demerol 25 mg {Note: rass 0.} Route: IVP; Site: right forearm; rr5 02:34 Follow up: Response: No adverse reaction; Pain is decreased; RASS: Alert and Calm (0) 01:57 Drug: SOLU-Medrol 125 mg Route: IVP; Site: right forearm; rr5 02:33 Follow up: Response: No adverse reaction 01:59 Drug: Rocephin 1 grams Route: IV; Rate: calculated rate; Site: right forearm; rr5 02:33 Follow up: Response: No adverse reaction; IV Status: Completed infusion 02:05 Drug: Flagyl 500 mg Volume: 100 ml; Route: IVPB; Rate: 200 ml/hr; Infused Over: 30 rr5 mins; Site: right forearm; 02:33 Follow up: Response: No adverse reaction; IV Status: Infusion continued upon admission Disposition: 09/02/19 01:53 Hospitalization ordered by Florin Ayala for Inpatient Admission. Preliminary diagnosis are Crohn's disease [regional enteritis], Possible small bowel obstruction. - Bed requested for Telemetry/MedSurg (Inpatient). - Status is Inpatient Admission. - Condition is Stable. - Problem is new. - Symptoms have improved. Signatures: Dispatcher [employer] EDMS Kenya Mirza RN RN mw Nieto, Roman, MD MD rn [place], [facility] Gigi Royal RN RN rr5 Corrections: (The following items were deleted from the chart) 02: 01:53 Hospitalization Ordered by Florin Ayala MD for Inpatient Admission. Preliminary diagnosis is Crohn's disease [regional enteritis]; Possible small bowel obstruction. Bed requested for Telemetry/MedSurg (Inpatient). Status is Inpatient Admission. Condition is Stable. Problem is new. Symptoms have improved. rn 02:34 02:01 09/02/2019 01:53 Hospitalization Ordered by Florin Ayala MD for Inpatient Admission. Preliminary diagnosis is Crohn's disease [regional enteritis]; Possible small bowel obstruction. Bed requested for Telemetry/MedSurg (Inpatient). Status is Inpatient Admission. Condition is Stable. Problem is new. Symptoms have improved.
[2019-09-02] MEDS ORDERED: ONDANSETRON 4 MG/2 ML VIAL IV PRN (02:06)
[2019-09-02] MEDS ORDERED: HYDROCODONE/APAP 5/325 MG TAB PO PRN (02:06)
[2019-09-02] MEDS ORDERED: ACETAMINOPHEN 500 MG TAB PO PRN (02:06)
[2019-09-02 02:59] VITALS: BMI 30.2
[2019-09-02] MEDS: NA CHLORIDE 0.9% 1,000 ML IV SCH ×2 (03:20→15:40)
[2019-09-02] MEDS ORDERED: PIPER/TAZO/NS 3.375gm 3.375 GM/100 ML BAG ONE (05:09)
[2019-09-02] MEDS ORDERED: PIPER/TAZO/NS 3.375gm 3.375 GM/100 ML BAG IVPB SCH (06:00)
[2019-09-02] MEDS ORDERED: METHYLPREDNISOLONE 125 MG INJ IV ONE (07:52)
--- NOTE | 2019-09-02 07:57 | P.HP ---
Certification for Inpatient Patient admitted to: Inpatient With expected LOS: >2 Midnights Patient will require the following post-hospital care: None Practitioner: I am a practitioner with admitting privileges, knowledge of patient current condition, hospital course, and medical plan of care. Services: Services provided to patient in accordance with Admission requirements found in Title 42 Section 412.3 of the Code of Federal Regulations Patient History Date of Service: 09/02/19 Reason for admission: Crohn's exacerbation/partial obstruction History of Present Illness: Patient is a 53-year-old gentleman with a history of Crohn's disease. He is taking Humira for the Crohn disease in his disease has been well controlled for the last year. However, he has been having fevers over the last week and he started feeling worse. He got tested a week ago for COVID-19, and his results are still pending. He started becoming more constipated over the last couple of days so he came into the ER for further evaluation. In the emergency room, he was having nausea and vomiting. He had CT scan which revealed Crohn's flare ups as well as pseudo obstruction. He will be admitted to the hospital for further workup. Allergies ciprofloxacin [From Cipro] Allergy (Verified 09/02/19 02:44) Itching Home Medications: Adalimumab [Humira(Cf) Pen] 40 mg IM SEECOM 09/02/19 - Past Medical/Surgical History Has patient received pneumonia vaccine in the past: No Diabetic: No -: Crohn's disease Past Surgical History: Patient denies surgical history Psychosocial/ Personal History: PCP is Dr. Breen - Family History Father Family History: Reviewed- Non-Contributory - Social History Smoking Status: Never smoker Alcohol use: Yes CD- Drugs: No Caffeine use: No Place of Residence: Home Review of Systems 10-point ROS is otherwise unremarkable Physical Examination - Vital Signs Temperature: 97.8 F Blood Pressure: 165/84 Pulse: 53 Respirations: 17 Pulse Ox (%): 97 - Physical Exam General: Alert, In no apparent distress, Oriented x3 HEENT: Atraumatic, PERRLA, Mucous membr. moist/pink, Other (NG tube is in place) , EOMI, Sclerae nonicteric Neck: Supple, 2+ carotid pulse no bruit, No LAD, Without JVD or thyroid abnormality Respiratory: Clear to auscultation bilaterally, Normal air movement Cardiovascular: Regular rate/rhythm, Normal S1 S2, No murmurs Gastrointestinal: Normal bowel sounds, Soft and benign, Non-distended, No rebound, No guarding, Tenderness Musculoskeletal: No clubbing, No swelling, No tenderness Integumentary: No rashes Neurological: Normal gait, Normal speech, Normal strength at 5/5 x4 extr, Normal tone, Sensation intact, Cranial nerves 3-12 intact, Normal affect Lymphatics: No axilla or inguinal lymphadenopathy - Studies Laboratory Data (last 24 hrs) 09/01/19 23:02: WBC 12.8 H, Hgb 14.8, Hct 44.7, Plt Count 275 09/01/19 23:02: Sodium 139, Potassium 3.6, BUN 13, Creatinine 1.11, Glucose 98, Total Bilirubin 0.7, AST 21, ALT 40, Alkaline Phosphatase 76, Lipase 80 Assessment & Plan - Problems (Diagnosis) (1) Crohn's disease with intestinal obstruction Current Visit: Yes Status: Acute (2) COVID-19 Current Visit: Yes Status: Acute - Plan 1. Continue with IV hydration 2. Continue with IV antibiotics and IV steroids 3. Continue with pain control 4. NPO 5. GI & general surgery consultation; outpatient colonoscopy 6. Serial H&H, and we will monitor CBC, BMP, LFTs and lipase along with electrolytes. 7. COVID-19 testing pending 8. GI and DVT prophylaxis Discharge Plan: Home Plan to discharge in: Greater than 2 days - Advance Directives Does patient have a Living Will: No Does patient have a Durable POA for Healthcare: No - Code Status/Comfort Care Code Status Assessed: Yes Code Status: Full Code Critical Care: No Time Spent Managing PTS Care (In Minutes): 45
[2019-09-02] MEDS ORDERED: METRONIDAZOLE 500mg IVPB 500 MG/100 ML BAG IV SCH (09:00)
--- NOTE | 2019-09-02 09:11 | RAD REPORT ---
EXAM DESCRIPTION: RAD - Abdomen 1 View (KUB) - 09/02/2019 8:56 am CLINICAL HISTORY: SBO Pain COMPARISON: No comparisons FINDINGS: The bowel gas pattern is non-obstructive. No evidence of free air or pneumatosis. Contrast is present in the colon and tract. Enteric tube tip is in the stomach.
[2019-09-02 09:19] VITALS: O2SAT 96
[2019-09-02] MEDS: METHYLPREDNISOLONE 125 MG INJ IV SCH ×2 (11:20→17:23)
[2019-09-02] MEDS: PIPER/TAZO/NS 3.375gm 3.375 GM/100 ML BAG IVPB SCH ×2 (11:20→17:22)
[2019-09-02] MEDS ORDERED: MINERAL OIL 30 ML UCUP PO ONE (11:58)
--- NOTE | 2019-09-02 12:38 | RAD REPORT ---
EXAM DESCRIPTION: CT Abdomen and Pelvis With Intravenous Contrast CLINICAL HISTORY: The patient is 53 years old and is Male; crohns, eval for obstruction;Abd pain;Abd ominal distention TECHNIQUE: Axial computed tomography images of the abdomen and pelvis with intravenous contrast. S agittal and coronal reformatted images were created and reviewed. This CT exam was performed using one or more of the following dose reduction techniques: automated exposure control, adjustment of t he mA and/or kV according to patient size, and/or use of iterative reconstruction technique. COMPARISON: No relevant prior studies available. FINDINGS: LUNG BASES: Minimal linear atelectasis within the right lung base is present. ABDOMEN: LIVER: The liver is mildly fatty and enlarged. GALLBLADDER AND BILE DUCTS: Surgical clips are present in the right upper quadrant, consistent w ith previous cholecystectomy. PANCREAS: No ductal dilation. No mass. SPLEEN: Unremarkable. ADRENALS: Unremarkable. No mass. KIDNEYS AND URETERS: Unremarkable. The kidneys enhance symmetrically. No obstructing renal or ur eteral calculus is seen. No hydronephrosis or hydroureter. No perinephric fluid or stranding. STOMACH AND BOWEL: Oral contrast is present within the stomach and within the proximal and mid s mall bowel. Multiple dilated loops of small bowel are present within the left abdomen extending to th e right abdomen. The affected small bowel loops are minimally inflamed. The small bowel becomes more normal in caliber in the right lower quadrant. This is best appreciated on coronal image 20-22. The d istal small bowel is normal in caliber. Stool is present throughout the colon. A few scattered coloni c diverticula are noted without surrounding inflammation. PELVIS: APPENDIX: No findings to suggest acute appendicitis. BLADDER: Unremarkable. No mass. REPRODUCTIVE: Unremarkable as visualized. ABDOMEN and PELVIS: INTRAPERITONEAL SPACE: Unremarkable. No free air. No significant fluid collection. BONES/JOINTS: No acute fracture. SOFT TISSUES: The soft tissues are normal. VASCULATURE: Unremarkable. No abdominal aortic aneurysm. LYMPH NODES: Unremarkable. No enlarged lymph nodes. IMPRESSION: Findings suggest enteritis involving multiple small bowel loops in the left abdomen with a developing small bowel obstruction. Transition point is noted within the right lower quadrant. Electronically signed by: Sujatha Ramey MD 09/02/2019 1:08 AM CDT Due to temporary technical issues with the PACS/Fluency reporting system, reports are being signed by the in house radiologist without review as a courtesy to ensure prompt reporting. The interpreting r adiologist is fully responsible for the content of the report.
--- NOTE | 2019-09-02 17:00 | P.CNS ---
Date of Consult: 09/02/19 PC: I was asked to see this 53-year-old male in regards to abdominal pain and possible bowel obstruction. HPC: Patient presents to the hospital yesterday. Had had a 48 hr history of hard crampy mid abdominal pain. Describes is extremely severe. Had nausea and vomiting with it. PMH: History of Crohn's disease PSHx: Patient has had previous colon surgery, hernia surgeries, incisional hernia surgeries SOC: Allergic to Cipro SYS REVIEW: No cough, wheeze, shortness of breath. No chest pain or palpitations. Denies any urinary complaints O/E awake alert stable at the moment HEENT: Within normal limits Chest: Chest movement equal bilaterally ABD: Soft nontender LOCO: Intact DATA: CT scan suggested small bowel obstruction IMPRESSION: This patient, had a nasogastric tube in place. He was partially decompress. He has been having bowel movements. We placed some mineral down through the nasogastric tube it has been discontinued. This afternoon he says he feels well, has been up ambulating in his room. PLAN: Advanced diet, and if tolerated may be discharged soon. Does not require surgical intervention at this time.
--- NOTE | 2019-09-02 20:33 | P.DS ---
Admission Date: 09/02/19 Discharge Date: 09/02/19 Disposition: ROUTINE DISCHARGE Discharge Condition: FAIR Reason for Admission: Crohn's exacerbation/partial obstruction Consultations: General Surgery-Dr. Whittaker Brief History of Present Illness: 53-year-old gentleman with a history of Crohn's disease presented to the emergency department with a complaint of abdominal pain, nausea and vomiting and constipation as well as fever. He had mild leukocytosis. CT abdomen and pelvis done reported possible Crohn's disease flare and pseudo-obstruction. Patient was hospitalized for further management. Hospital Course: Supportive measures given with IV fluids. Patient was seen by general surgery. NG-tube was placed to decompress his bowel. He was also placed on IV steroid for Crohn's disease flare. Patient condition improved. He had multiple bowel movements, tolerated diet, KUB demonstrated no obstructive pattern. Patient was considered clinically stable for discharge by general surgery-Dr. Whittaker. He will be discharged with short course oral Prednisone. Vital Signs/Physical Exam: Temp Pulse Resp BP Pulse Ox 98.4 F 75 18 152/85 H 95 09/02/19 16:00 09/02/19 16:00 09/02/19 16:00 09/02/19 16:00 09/02/19 16:00 Laboratory Data at Discharge: WBC 12.8 K/uL (4.3-10.9) H 09/01/19 23:02 Hgb 14.8 g/dL (13.6-17.9) 09/01/19 23:02 Hct 44.7 % (39.6-49.0) 09/01/19 23:02 Plt Count 275 K/uL (152-406) 09/01/19 23:02 Sodium 139 mmol/L (136-145) 09/01/19 23:02 Potassium 3.6 mmol/L (3.5-5.1) 09/01/19 23:02 BUN 13 mg/dL (7-18) 09/01/19 23:02 Creatinine 1.11 mg/dL (0.55-1.3) 09/01/19 23:02 Glucose 98 mg/dL (74-106) 09/01/19 23:02 Total Bilirubin 0.7 mg/dL (0.2-1.0) 09/01/19 23:02 AST 21 U/L (15-37) 09/01/19 23:02 ALT 40 U/L (12-78) 09/01/19 23:02 Alkaline Phosphatase 76 U/L (45-117) 09/01/19 23:02 Lipase 80 U/L (73-393) 09/01/19 23:02 Home Medications: Adalimumab [Humira(Cf) Pen] 40 mg IM SEECOM 09/02/19 predniSONE [Deltasone] 20 mg PO DAILY #5 tab 09/02/19 New Medications: predniSONE [Deltasone] 20 mg PO DAILY #5 tab Diet: Soft diet and progress as tolerated Activity: Ad moises Time spent managing pt's care (in minutes): 25
[2019-09-02 21:30] VITALS: BP 138/86; TEMP 99
== END 2019-09-02 21:31 | disposition home or self-care (01) | DRG 387 ==
LOC: ER 22:34 → 2ND 09-02 02:24 → ERHOLD 09-02 03:22 → 4TH 09-02 04:12
PROVIDERS: ADMIT Hospitalist; ATTEND Hospitalist
DX: K50.912 Crohn's disease, unspecified, with intestinal obstruction (principal); Z20.828 Contact with and (suspected) exposure to other viral communicable diseases
CPT/HCPCS: 36415; 74018; 74177; 80048; 80076; 81003; 82947; 83690; 85025; 96361; 96365; 96375; 99285; J0696; J2175; J2543; J2550; J2930; J7030; Q9967; U0002

== ENCOUNTER 2021-01-01 08:35 | Inpatient (IN) | payer BC ==
[2021-01-01] MEDS ORDERED: NA CHLORIDE 0.9% 1,000 ML ONE (09:02)
[2021-01-01 09:12] LABS: Absolute Lymphocytes (CBC) 2.6 K/uL (0.7-4.9); Basophils % 0.8 % (0-1.3); Hematocrit 45.2 % (39.6-49.0); Lymphocytes % 24.5 % (15.3-44.8); MPV 7.9 fL (7.6-11.3); RBC Red Blood Cell Count 5.07 M/uL (4.33-5.43)
[2021-01-01 09:23] LABS: Albumin 3.9 g/dL (3.4-5.0); Bilirubin Direct 0.1 mg/dL (0-0.2); Bilirubin Total 0.4 mg/dL (0.2-1.0); Potassium 4.1 mmol/L (3.5-5.1); Protein, Total 8.2 g/dL (6.4-8.2)
[2021-01-01] MEDS ORDERED: MORPHINE 4 MG/ML SYR ONE (09:28)
[2021-01-01] MEDS ORDERED: ONDANSETRON 4 MG/2 ML VIAL ONE (09:29)
--- NOTE | 2021-01-01 10:02 | RAD REPORT ---
EXAM DESCRIPTION: CTAbdomen Pelvis W Contrast - 01/01/2021 9:47 am CLINICAL HISTORY: Abdominal pain. ABD PAIN COMPARISON: Abdomen Pelvis W Contrast dated 09/02/2019 TECHNIQUE: Biphasic CT imaging of the abdomen and pelvis was performed with 100 ml non-ionic IV cont rast. All CT scans are performed using dose optimization technique as appropriate and may include automated exposure control or mA/KV adjustment according to patient size. FINDINGS: Subsegmental atelectasis is present in the right lung base with emphysematous lung marinelli. Mild fatty liver is noted. Cholecystectomy clips are seen. A few small lymph nodes are seen in the ga strohepatic ligament region. The spleen, pancreas, adrenal glands and kidneys show no pathologic find ing. Multiple dilated small bowel loops are seen in the mid and lower abdomen. Maximum dilatation of the s mall bowel loops measures 4 cm. This is compatible with mechanical small-bowel obstruction. Clear poi nt of transition is not seen. The appendix is normal. No evidence of significant lymphadenopathy. Pr ostate gland is enlarged and projects into the bladder base. Small moderate bilateral fat containing inguinal hernias. Moderate lumbosacral degenerative changes. IMPRESSION: Moderate developing mechanical small-bowel obstruction.
[2021-01-01] MEDS ORDERED: METHYLPREDNISOLONE 125 MG INJ ONE (10:34)
[2021-01-01] MEDS ORDERED: ALPRAZOLAM 0.25 MG TABLET PO PRN (10:40)
[2021-01-01] MEDS ORDERED: ACETAMINOPHEN 500 MG TAB PO PRN (10:40)
[2021-01-01] MEDS ORDERED: ONDANSETRON 4 MG/2 ML VIAL IV PRN (10:40)
--- NOTE | 2021-01-01 10:40 | EDPHYS ---
Physician Documentation [facility] Name: Tony Wen Age: 55 yrs Sex: Male : 1965 Arrival Date: 01/01/2021 Time: 08:39 Bed 15 Private MD: Baldo Breen R ED Physician Florin Rand HPI: 01/01 10:36 This 55 yrs old Male presents to ER via Ambulatory with complaints of ma2 Abdominal Pain, Vomiting. 10:36 The patient presents to the emergency department with nausea, vomiting. Onset: The ma2 symptoms/episode began/occurred gradually, 1 week(s) ago. Associated signs and symptoms: Pertinent negatives: belching, dysuria, flatulence, hematuria. Severity of symptoms: At their worst the symptoms were moderate in the emergency department the symptoms are unchanged. The patient has experienced similar episodes in the past. Historical: - Allergies: 08:53 Cipro; jt3 - Home Meds: 08:53 Humira Injection [Active]; jt3 - PMHx: 08:53 chrons disease; jt3 - Immunization history:: Adult Immunizations up to date. - Social history:: Smoking status: Patient denies any tobacco usage or history of. Patient uses alcohol, occasionally. Patient/guardian denies using alcohol, street drugs, The patient lives with family. - Family history:: not pertinent. ROS: 10:36 Constitutional: Negative for fever, chills, and weight loss, Eyes: Negative for injury, ma2 pain, redness, and discharge, ENT: Negative for injury, pain, and discharge, Neck: Negative for injury, pain, and swelling, Cardiovascular: Negative for chest pain, palpitations, and edema, Respiratory: Negative for shortness of breath, cough, wheezing, and pleuritic chest pain, Abdomen/GI: Negative for abdominal pain, nausea, diarrhea, and constipation, Skin: Negative for injury, rash, and discoloration, Neuro: Negative for headache, weakness, numbness, tingling, and seizure, Psych: Negative for depression, anxiety, suicide ideation, homicidal ideation, and hallucinations, Allergy/Immunology: Negative for hives, rash, and allergies. 10:36 All other systems are negative. Exam: 10:36 Constitutional: This is a well developed, well nourished patient who is awake, alert, ma2 and in no acute distress. Head/Face: Normocephalic, atraumatic. Neck: Trachea midline, no thyromegaly or masses palpated, and no cervical lymphadenopathy. Supple, full range of motion without nuchal rigidity, or vertebral point tenderness. No Meningismus. Chest/axilla: Normal chest wall appearance and motion. Nontender with no deformity. No lesions are appreciated. Cardiovascular: Regular rate and rhythm with a normal S1 and S2. No gallops, murmurs, or rubs. Normal PMI, no JVD. No pulse deficits. Respiratory: Lungs have equal breath sounds bilaterally, clear to auscultation and percussion. No rales, rhonchi or wheezes noted. No increased work of breathing, no retractions or nasal flaring. Abdomen/GI: Soft, non-tender, with normal bowel sounds. No distension or tympany. No guarding or rebound. No evidence of tenderness throughout. Skin: Warm, dry with normal turgor. Normal color with no rashes, no lesions, and no evidence of cellulitis. MS/ Extremity: Pulses equal, no cyanosis. Neurovascular intact. Full, normal range of motion. Neuro: Awake and alert, GCS 15, oriented to person, place, time, and situation. Cranial nerves II-XII grossly intact. Motor strength 5/5 in all extremities. Sensory grossly intact. Cerebellar exam normal. Normal gait. Vital Signs: 08:49 BP 140 / 103; Pulse 91; Resp 16; Temp 97.5; Pulse Ox 97% on R/A; Weight 97.52 kg; jt3 Height 5 ft. 9 in. (175.26 cm); 09:11 BP 127 / 78; Pulse 74; Resp 17; Pulse Ox 98% on R/A; jt3 11:46 BP 129 / 85; Pulse 73; Resp 17; Pulse Ox 100% on R/A; jt3 13:49 BP 131 / 76; Pulse 81; Resp 17; Pulse Ox 100% on R/A; jt3 08:49 Body Mass Index 31.75 (97.52 kg, 175.26 cm) jt3 MDM: 10:36 Differential diagnosis: cholecystitis, appendicitis, diverticulitis, viral ma2 gastroenteritis, gastroenteritis. Data reviewed: vital signs, nurses notes, EMS record, retirement records. Counseling: I had a detailed discussion with the patient and/or guardian regarding: the historical points, exam findings, and any diagnostic results supporting the discharge/admit diagnosis, the presence of at least one elevated blood pressure reading (>120/80) during this emergency department visit, lab results, radiology results, the need for outpatient follow up. Response to treatment: the patient's symptoms have markedly improved after treatment. 10:39 Patient medically screened. [facility] 01/01 08:41 Order name: Basic Metabolic Panel [facility] 01/01 08:41 Order name: CBC with Diff [facility] 01/01 08:41 Order name: Hepatic Function [facility] 01/01 08:41 Order name: Lipase [facility] 01/01 08:41 Order name: Basic Metabolic Panel; Complete Time: 09:25 [facility] 01/01 08:41 Order name: CBC with Automated Diff; Complete Time: 09:25 [facility] 01/01 08:41 Order name: Liver (Hepatic) Function; Complete Time: 09:25 [facility] 01/01 08:41 Order name: Lipase; Complete Time: 09:25 [facility] 01/01 10:45 Order name: Comprehensive Metabolic Panel [facility] 01/01 10:45 Order name: Comprehensive Metabolic Panel [facility] 01/01 10:45 Order name: Magnesium [facility] 01/01 10:45 Order name: Magnesium [facility] 01/01 10:45 Order name: Protime (+INR) [facility] 01/01 10:45 Order name: Protime (+INR) [facility] 01/01 08:41 Order name: IV Saline Lock; Complete Time: 08:59 al2 01/01 08:41 Order name: Labs collected and sent; Complete Time: 08:59 [facility] 01/01 08:41 Order name: Urine Dipstick-Ancillary (obtain specimen); Complete Time: 11:18 al2 01/01 09:25 Order name: CT Abd/Pelvis - IV Contrast Only; Complete Time: 10:04 al2 01/01 10:45 Order name: PTT, Activated Partial Thromb EDNM 01/01 10:45 Order name: CONS Physician Consult [facility] 01/01 10:45 Order name: NPO [facility] 01/01 10:45 Order name: CBC with Automated Diff EDNM 01/01 10:45 Order name: CBC with Automated Diff [facility] 01/01 10:45 Order name: PTT, Activated Partial Thromb [facility] 01/01 10:55 Order name: Urine Dipstick-Ancillary EDMS 01/01 10:56 Order name: COVID-19 SARS RT PCR (Document "Date of Onset" if Symptomatic) eb Administered Medications: 09:08 Drug: NS 0.9% 1000 ml Route: IV; Rate: 1 bolus; Site: left antecubital; jt3 09:35 Drug: morphine 4 mg Route: IVP; Site: left antecubital; jt3 10:06 Follow up: Response: No adverse reaction; Pain is decreased jt3 09:36 Drug: Zofran (Ondansetron) 4 mg Route: IVP; Site: left antecubital; jt3 10:06 Follow up: Response: No adverse reaction jt3 10:42 Drug: MethylPrednisoLONE 125 mg Route: IVP; Site: left antecubital; jt3 Disposition Summary: 01/01/21 10:39 Hospitalization Ordered Hospitalization Status: Inpatient Admission ma2 Provider: Florin Ayala Location: Telemetry/MedSurg (Inpatient) ma2 Condition: Stable ma2 Problem: new ma2 Symptoms: are unchanged ma2 Bed/Room Type: Standard al2 Room Assignment: 231(01/01/21 12:52) Diagnosis - Crohn's disease of both small and large intestine - with obstruction ma2 Forms: - Medication Reconciliation Form ma2 - SBAR form ma2 Signatures: Dispatcher [employer] Luna Brooke RN RN Florin Negrete MD MD ma2 Brett Calderon RN RN jt3 Corrections: (The following items were deleted from the chart) 12:52 10:39 ma2 dw
--- NOTE | 2021-01-01 10:40 | ER ---
Nurse's Notes [facility] Name: Tony Wen Age: 55 yrs Sex: Male : 1965 Arrival Date: 01/01/2021 Time: 08:39 Bed 15 Private MD: Baldo Breen R Diagnosis: Crohn's disease of both small and large intestine-with obstruction Presentation: 01/01 08:49 Chief complaint: Patient states: Pt. reports left sided abdominal pain that woke the jt3 patient up last night. Pt. has vomited x2 with it being his dinner and then bile. Denies SOB and chest pain. Past medical hx of Crohns Disease. Pt. had this same symptoms a year ago and endorsed having "some type of blockage." Alert and oriented x4 on arrival. Coronavirus screen: Vaccine status: Patient reports being unvaccinated. Ebola Screen: Patient negative for fever greater than or equal to 101.5 degrees Fahrenheit, and additional compatible Ebola Virus Disease symptoms Patient denies exposure to infectious person. Patient denies travel to an Ebola-affected area in the 21 days before illness onset. Initial Sepsis Screen: Does the patient meet any 2 criteria? HR > 90 bpm. Does the patient have a suspected source of infection? No. Patient's initial sepsis screen is negative. Risk Assessment: Do you want to hurt yourself or someone else? Patient reports no desire to harm self or others. Onset of symptoms was December 31, 2020. 08:49 Method Of Arrival: Ambulatory jt3 08:49 Acuity: LEANNE 3 jt3 Triage Assessment: 08:53 General: Appears in no apparent distress. Behavior is calm, cooperative. Pain: jt3 Complains of pain in abdomen Pain does not radiate. Pain currently is 6 out of 10 on a pain scale. Quality of pain is described as burning, pressure. GI: Bowel sounds present X 4 quads. absent in right upper quadrant, left upper quadrant, right lower quadrant and left lower quadrant. Historical: - Allergies: 08:53 Cipro; jt3 - Home Meds: 08:53 Humira Injection [Active]; jt3 - PMHx: 08:53 chrons disease; jt3 - Immunization history:: Adult Immunizations up to date. - Social history:: Smoking status: Patient denies any tobacco usage or history of. Patient uses alcohol, occasionally. Patient/guardian denies using alcohol, street drugs, The patient lives with family. - Family history:: not pertinent. Screenin:56 Abuse screen: Denies threats or abuse. Denies injuries from another. Nutritional jt3 screening: No deficits noted. Tuberculosis screening: No symptoms or risk factors identified. Fall Risk None identified. Assessment: 08:56 GI: Bowel sounds absent in right upper quadrant, left upper quadrant, right lower jt3 quadrant and left lower quadrant Abd is soft Abdomen is tender to palpation in left upper quadrant. 11:49 Reassessment: No changes from previously documented assessment. jt3 Vital Signs: 08:49 BP 140 / 103; Pulse 91; Resp 16; Temp 97.5; Pulse Ox 97% on R/A; Weight 97.52 kg; jt3 Height 5 ft. 9 in. (175.26 cm); 09:11 BP 127 / 78; Pulse 74; Resp 17; Pulse Ox 98% on R/A; jt3 11:46 BP 129 / 85; Pulse 73; Resp 17; Pulse Ox 100% on R/A; jt3 13:49 BP 131 / 76; Pulse 81; Resp 17; Pulse Ox 100% on R/A; jt3 08:49 Body Mass Index 31.75 (97.52 kg, 175.26 cm) jt3 ED Course: 08:39 Patient arrived in ED. mr 08:39 Baldo Breen MD is Private Physician. mr 08:41 Florin Rand MD is Attending Physician. ma2 08:43 Brett Calderon, VALENTINE is Primary Nurse. jt3 08:53 Triage completed. jt3 08:53 Arm band placed on right wrist. jt3 08:55 Inserted saline lock: 22 gauge in left antecubital area, using aseptic technique. Blood ll1 collected. 08:56 Patient has correct armband on for positive identification. Bed in low position. Call jt3 light in reach. Side rails up X2. 08:56 No provider procedures requiring assistance completed. jt3 09:47 CT Abd/Pelvis - IV Contrast Only In Process Unspecified. EDMS 10:39 Florin Ayala MD is Hospitalizing Provider. ma2 Administered Medications: 09:08 Drug: NS 0.9% 1000 ml Route: IV; Rate: 1 bolus; Site: left antecubital; jt3 09:35 Drug: morphine 4 mg Route: IVP; Site: left antecubital; jt3 10:06 Follow up: Response: No adverse reaction; Pain is decreased jt3 09:36 Drug: Zofran (Ondansetron) 4 mg Route: IVP; Site: left antecubital; jt3 10:06 Follow up: Response: No adverse reaction jt3 10:42 Drug: MethylPrednisoLONE 125 mg Route: IVP; Site: left antecubital; jt3 Outcome: 10:39 Decision to Hospitalize by Provider. ma2 14:10 Admitted to Med/surg accompanied by tech, via wheelchair. jt3 14:10 Condition: good 14:10 Discharge instructions given to patient. 14:10 Patient left the ED. jt3 Signatures: Dispatcher [employer] Daysi Locke Mohammad, MD MD ma2 Mehdi Main RN RN ll1 Brett Calderon RN RN jt3
[2021-01-01 10:55] LABS: Urine Blood Negative (Negative); Urine Glucose Negative (Negative); Urine Protein Negative (Negative)
[2021-01-01] MEDS ORDERED: NA CHLORIDE 0.9% 1,000 ML IV SCH (11:00)
[2021-01-01] MEDS: METHYLPREDNISOLONE 125 MG INJ IV SCH ×2 (12:00→18:44)
[2021-01-01 14:50] VITALS: O2SAT 100
[2021-01-01] MEDS: NA CHLORIDE 0.9% 1,000 ML IV SCH ×2 (15:18→20:30)
--- NOTE | 2021-01-01 17:56 | P.HP ---
Certification for Inpatient Patient admitted to: Inpatient With expected LOS: >2 Midnights Patient will require the following post-hospital care: None Practitioner: I am a practitioner with admitting privileges, knowledge of patient current condition, hospital course, and medical plan of care. Services: Services provided to patient in accordance with Admission requirements found in Title 42 Section 412.3 of the Code of Federal Regulations Patient History Date of Service: 01/01/21 History of Present Illness: Patient is a 55-year-old gentleman who came to the hospital with abdominal pain. Patient has a history of Crohn's disease. Patient was in the hospital about a year ago with a right-sided small-bowel obstruction. Patient had a transition point. This resolved. Patient is on Humira. Patient has been doing well since surgery 15 years ago for his Crohn's disease. Lash there was a 1st the hospital. He comes back into the hospital with persistent nausea and vomiting. He will be admitted to the hospital for further evaluation. There is no strict bowel obstruction at this time. Continue monitoring. Clear liquid diet in a.m. Allergies ciprofloxacin [From Cipro] Allergy (Verified 09/02/19 02:44) Itching Home Medications: Adalimumab [Humira(Cf) Pen] 40 mg IM SEECOM 09/02/19 Tadalafil [Cialis] 5 mg PO DAILY 01/01/21 Valsartan 1 tab PO DAILY 01/01/21 - Past Medical/Surgical History Diabetic: No -: Crohn's disease -: Hepatitis -: HTN -: COLON RESECTION(2003) -: COLONOSCOPY(2019) -: OPEN CHOLECYSTECTOMY Psychosocial/ Personal History: PCP is Dr. Breen - Family History Father Family History: Reviewed- Non-Contributory - Social History Smoking Status: Never smoker Alcohol use: Yes CD- Drugs: No Caffeine use: No Place of Residence: Home Review of Systems 10-point ROS is otherwise unremarkable Physical Examination - Vital Signs Temperature: 97.6 F Blood Pressure: 104/59 Pulse: 71 Respirations: 16 Pulse Ox (%): 96 - Physical Exam General: Alert, In no apparent distress, Oriented x3 HEENT: Atraumatic, PERRLA, Mucous membr. moist/pink, EOMI, Sclerae nonicteric Neck: Supple, 2+ carotid pulse no bruit, No LAD, Without JVD or thyroid abnormality Respiratory: Clear to auscultation bilaterally, Normal air movement Cardiovascular: Regular rate/rhythm, Normal S1 S2, No murmurs Gastrointestinal: Normal bowel sounds, Soft and benign, Non-distended, Tenderness, Rebound Musculoskeletal: No clubbing, No swelling, No tenderness Integumentary: No rashes Neurological: Normal gait, Normal speech, Normal strength at 5/5 x4 extr, Normal tone, Sensation intact, Cranial nerves 3-12 intact, Normal affect Lymphatics: No axilla or inguinal lymphadenopathy - Studies Laboratory Data (last 24 hrs) 01/01/21 08:55: WBC 10.50, Hgb 15.2, Hct 45.2, Plt Count 259 01/01/21 08:55: Sodium 141, Potassium 4.1, BUN 17, Creatinine 1.12, Glucose 134 H, Total Bilirubin 0.4, AST 27, ALT 50, Alkaline Phosphatase 74, Lipase 104 Assessment & Plan - Problems (Diagnosis) (1) Crohn's disease with intestinal obstruction Current Visit: No Status: Acute - Plan 1. Continue with IV hydration 2. Continue with IV antibiotics 3. Continue with pain control and IV steroids 4. NPO 5. General surgery consultation; outpatient colonoscopy in 6-12 weeks 6. Serial H&H, and we will monitor CBC, BMP, LFTs and lipase along with electrolytes. 7. Repeat abdominal film in the morning 8. GI and DVT prophylaxis Discharge Plan: Home Plan to discharge in: Greater than 2 days - Advance Directives Does patient have a Living Will: No Does patient have a Durable POA for Healthcare: No - Code Status/Comfort Care Code Status Assessed: Yes Code Status: Full Code Critical Care: No Time Spent Managing PTS Care (In Minutes): 45
[2021-01-01] MEDS: METRONIDAZOLE 500mg IVPB 500 MG/100 ML BAG IV SCH (18:45)
[2021-01-01] MEDS: CEFEPIME 1 GM in NA CHLORIDE 0.9% 100 ML IV SCH (20:29)
[2021-01-01] MEDS ORDERED: CEFEPIME 1 GM/VIAL IV SCH (21:00)
[2021-01-02] MEDS: METHYLPREDNISOLONE 125 MG INJ IV SCH ×3 (01:00→12:22)
[2021-01-02] MEDS: METRONIDAZOLE 500mg IVPB 500 MG/100 ML BAG IV SCH ×2 (01:00→08:17)
[2021-01-02 05:59] LABS: Absolute Lymphocytes (CBC) 2.5 K/uL (0.7-4.9); Hematocrit 40.7 % (39.6-49.0); Lymphocytes % 17.9 % (15.3-44.8); MPV 7.9 fL (7.6-11.3); RBC Red Blood Cell Count 4.52 M/uL (4.33-5.43)
[2021-01-02 06:03] LABS: Protime INR 1.07
[2021-01-02 06:15] LABS: Albumin 3.2 g/dL (3.4-5.0); Bilirubin Total 0.5 mg/dL (0.2-1.0); Magnesium 2.2 mg/dL (1.8-2.4); Potassium 4.7 mmol/L (3.5-5.1)
[2021-01-02] MEDS: NA CHLORIDE 0.9% 1,000 ML IV SCH (06:51)
[2021-01-02 07:38] LABS: Blood Morphology Comment NOT SEEN (NOT SEEN); Platelet Estimate ADEQ; White Blood Cell Scan OK (OK)
[2021-01-02] MEDS: CEFEPIME 1 GM in NA CHLORIDE 0.9% 100 ML IV SCH (08:18)
[2021-01-02] MEDS ORDERED: ENOXAPARIN 40 MG/0.4 ML SQ SCH (09:00)
--- NOTE | 2021-01-02 11:09 | P.PN ---
Subjective Date of Service: 01/02/21 Subjective: Improving (Passing gas, + BM, pain free, no complaints of any kind) Physical Examination - Vital Signs Temperature: 98.1 F Blood Pressure: 124/72 Pulse: 67 Respirations: 18 Pulse Ox (%): 97 - Physical Exam General: Alert, In no apparent distress, Cooperative Respiratory: Clear to auscultation bilaterally, Normal air movement Cardiovascular: No edema, Regular rate/rhythm Gastrointestinal: Soft and benign, Non-distended, W/out succussion splash, W/out hepatosplenomegaly, W/out hepatomegaly, W/out splenomegaly, No ascites, No tenderness, No masses, No rebound, No guarding Musculoskeletal: No clubbing, No swelling, No contractures Integumentary: No rashes, No breakdown Assessment And Plan - Current Problems (Diagnosis) (1) Crohn's disease with intestinal obstruction Current Visit: No Status: Acute Plan: - Advance diet as tolerated to soft, if tolerated may DC on low residue diet - follow up with primary care and GI upon discharge - ambulate with assist - continue medical management
[2021-01-02 12:01] VITALS: BP 117/74; TEMP 98.6; BMI 31.6
--- NOTE | 2021-01-02 12:48 | CON ---
Date of Consultation: 01/01/2021 Brief History Of Present Illness: The patient is a 55-year-old gentleman, who came to the hospital w ith abdominal pain beginning prior to his presentation. He has had similar episodes before in the [facility] with a Crohn flare and bowel obstructions in the past. He is currently treated with Humira for ma ny years for his Crohn disease. 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 He has been doing well a s he had a transverse colectomy 15 years ago for Crohn disease flare at that point. He comes back to the hospital with persistent nausea, vomiting, and decreased bowel function. During my examination, however, he has significant improvement and almost resolution of his symptoms as his description. Fifi alvares has had no more nausea, vomiting. His abdominal pain is completely resolved. He has had started p assing gas and having bowel movements. Past Medical History: Significant for Crohn disease, hepatitis, status post hepatitis treatment, hyp ertension. Past Surgical History: Includes a transverse colectomy. He has had an open cholecystectomy, colonos copies in the past. Home Medications: Include Humira, Cialis, valsartan. Allergies: TO CIPRO, WHICH CAUSES ITCHING. Family History: Reviewed, noncontributory. Social History: He denies smoking. Drinks alcohol minimally and only recreationally with friends on occasion. Denies recreational drug use. Review of Systems: Ten-point review of systems other than HPI, denies. Physical Examination: Vital Signs: At the time of my examination, temperature 97.8, blood pressure 104/59, pulse 71, respi rations 16, pulse ox 96% on room air. General: He is awake, alert, and oriented. Psychiatric: Appropriate, conversive. HEENT: Normocephalic. Sclerae icteric. Mucous membranes are moist. Oropharynx clear. Neck: Supple without JVD. Chest: Normal expansion and excursion. Cardiovascular: Regular rate and rhythm. Pulmonary: Clear to auscultation bilaterally. Abdomen: Soft, nontender, nondistended. No rebound. No guarding. No focal peritonitis. Extremities: No clubbing, cyanosis, or edema. Skin: Warm and dry. Laboratory Data: Revealed a white blood count of 10.5, hemoglobin is 15.2, hematocrit 45.2, platelet count was 259, neutrophils are normal at 70%. His sodium is 141, potassium 4.1, chloride 105, carbo n dioxide 27, BUN 67, creatinine 1.1, glucose was 134. His total bilirubin 0.4, direct bilirubin 0.1 , AST 25, ALT 50, alkaline phosphatase 74. Lipase is 104. UA was negative. COVID was negative. He had a CT scan for the abdomen and pelvis, officially read as moderate developing mechanical small destin wel obstructions, multiple dilated small bowel loops in the mid abdomen and lower abdomen. Dilatatio n is 4 cm compatible with mechanical small bowel obstruction. Clear point of transition is not seen. The appendix is normal. No significant lymphadenopathy. Assessment And Plan: This is a 55-year-old male, who comes in with signs and symptoms of a partial s mall bowel obstruction. 1.IV fluid hydration. 2.Antibiotic coverage. 3.The patient has been given steroids. 4.Serial exams. 5.I recommend starting clear liquid diet at this point and will perform examination to see if the pa tient is ready for advancement tomorrow. I have explained the risks, benefits, and alternatives of t he above stated plan. The patient agrees to proceed as indicated. I have also recommended that the patient followup with his GI doctor as an outpatient should he resolve this episode without a surgica l intervention as he may be developing tachyphylaxis and should be evaluated for his Humira to see if its efficacy is still optimal. If not, patient might require change of his Crohn therapy as this ma y be a Crohn flare. In addition, as such, the patient agrees to proceed as indicated. Thank you for this interesting consult. MALCOLM/CATARINA Voice ID: [id number] Report ID: [id number]
--- NOTE | 2021-01-02 13:22 | P.DS ---
Discharge Date: 01/02/21 Disposition: ROUTINE DISCHARGE Discharge Condition: GOOD Consultations: General surgeon - Problems (1) Crohn's disease with intestinal obstruction Current Visit: No Status: Acute Brief History of Present Illness: Patient is a 55-year-old gentleman who came to the hospital with abdominal pain. Patient has a history of Crohn's disease. Patient was in the hospital about a year ago with a right-sided small-bowel obstruction. Patient had a transition point. This resolved. Patient is on Humira. Patient has been doing well since surgery 15 years ago for his Crohn's disease. Lash there was a 1st the hospital. He comes back into the hospital with persistent nausea and vomiting. He will be admitted to the hospital for further evaluation. There is no strict bowel obstruction at this time. Continue monitoring. Clear liquid diet in a.m. Hospital Course: Patient has done really well with IV steroids and IV antibiotic therapy. Patient is clinically feeling much better and it appears that his obstruction has resolved. Patient had a Crohn's exacerbation that is much better and he is tolerating his diet. He is improved much quicker than anticipated. I will go ahead and plan to discharge him home. This is the 2nd time he has had a small- bowel obstruction the last year related to his Crohn's disease. He will follow with his secured entrance monitor to see if medications need to be change. At this time, patient is stable for discharge. Vital Signs/Physical Exam: Temp Pulse Resp BP Pulse Ox 98.6 F 73 16 117/74 94 01/02/21 11:59 01/02/21 11:59 01/02/21 11:59 01/02/21 11:59 01/02/21 11:59 General: Alert, In no apparent distress, Oriented x3 Laboratory Data at Discharge: WBC 14.10 K/uL (4.3-10.9) H D 01/02/21 05:39 Hgb 13.6 g/dL (13.6-17.9) 01/02/21 05:39 Hct 40.7 % (39.6-49.0) 01/02/21 05:39 Plt Count 233 K/uL (152-406) 01/02/21 05:39 PT 12.3 SECONDS (9.5-12.5) 01/02/21 05:39 INR 1.07 01/02/21 05:39 APTT 26.7 SECONDS (24.3-36.9) 01/02/21 05:39 Sodium 140 mmol/L (136-145) 01/02/21 05:39 Potassium 4.7 mmol/L (3.5-5.1) 01/02/21 05:39 BUN 16 mg/dL (7-18) 01/02/21 05:39 Creatinine 1.00 mg/dL (0.55-1.3) 01/02/21 05:39 Glucose 131 mg/dL (74-106) H 01/02/21 05:39 Magnesium 2.2 mg/dL (1.8-2.4) 01/02/21 05:39 Total Bilirubin 0.5 mg/dL (0.2-1.0) 01/02/21 05:39 AST 16 U/L (15-37) 01/02/21 05:39 ALT 39 U/L (12-78) 01/02/21 05:39 Alkaline Phosphatase 63 U/L (45-117) 01/02/21 05:39 Lipase 104 U/L (73-393) 01/01/21 08:55 Home Medications: Adalimumab [Humira(Cf) Pen] 40 mg IM SEECOM 09/02/19 Tadalafil [Cialis] 5 mg PO DAILY 01/01/21 Valsartan 1 tab PO DAILY 01/01/21 Cefdinir [Omnicef] 300 mg PO BID #10 capsule 01/02/21 metroNIDAZOLE [Flagyl] 500 mg PO Q8H #20 tablet 01/02/21 predniSONE [Deltasone] 20 mg PO BID #11 tab 01/02/21 New Medications: metroNIDAZOLE [Flagyl] 500 mg PO Q8H #20 tablet Cefdinir [Omnicef] 300 mg PO BID #10 capsule predniSONE [Deltasone] 20 mg PO BID #11 tab Physician Discharge Instructions: OK TO DC IV AND DC HOME FOLLOW-UP WITH PRIMARY CARE PROVIDER IN 1-2 WEEKS FOLLOW-UP WITH finisher plate IN 1-2 WEEKS RETURN TO THE ER IF symptoms worsen CALL or TEXT DR. DODD AT [phone] IF ANY QUESTIONS REGARDING HOSPITAL STAY. PLEASE CALL THE FLOOR AT [phone] IF ANY MEDICATION OR NURSING QUESTIONS. Diet: AHA Activity: Fall precautions Followup: Baldo Breen MD [Primary Care Provider] - Time spent managing pt's care (in minutes): 35
== END 2021-01-02 13:50 | disposition home or self-care (01) | DRG 387 ==
LOC: ER 08:35 → ERHOLD 11:15 → 2ND 13:42
PROVIDERS: ADMIT Hospitalist; ATTEND Hospitalist
DX: K50.812 Crohn's disease of both small and large intestine with intestinal obstruction (principal); Z88.1 Allergy status to other antibiotic agents; Z79.899 Other long term (current) drug therapy; Z90.49 Acquired absence of other specified parts of digestive tract; Z79.52 Long term (current) use of systemic steroids; Z20.822 Contact with and (suspected) exposure to COVID-19
CPT/HCPCS: 36415; 74177; 80048; 80053; 80076; 81003; 83690; 83735; 85025; 85610; 85730; 96374; 96375; 99285; J0692; J1650; J2405; J2930; J7030; Q9967; U0003

== ENCOUNTER 2021-05-16 21:02 | Inpatient (IN) | payer BC ==
--- OUTSIDE RECORDS SUMMARY | 2021-05-16 21:07 | XMS REPORT | Continuity of Care Document ---
:1965 Author Organization [facility] t Address [address] [place] [address] Care Team Providers Name Role Phone Asked, Pcp Primary Care Physician Unavailable Leighton NELSON Attending Clinician Unavailable Leighton Freed Attending Clinician VICENTE Attending Clinician Unavailable SONIA Attending Clinician Unavailable [id number] Attending Clinician Unavailable Alicia Amaral Attending Clinician Unavailable Sonia TUTTLE Attending Clinician Provider, Urgent Care Attending Clinician Unavailable Grayson MOE Attending Clinician GRAYSON Attending Clinician Unavailable Lab, Fam Pob I Attending Clinician Unavailable Suyapa Carballo Attending Clinician Doctor Unassigned, Name Attending Clinician Unavailable Payers Payer Name Policy Type Policy Number Effective Date Expiration Date S ource [employer] [place] [id number] 2019 00:00:00 OUT OF STATE [id number] BCBS - PPO - BCBS HMO/QPOS/SELECT [id number] 2000 00:00:00 - [employer] BCBS 2 [id number] 2020 00:00:00 Problems Condition Condition Condition Status Onset Resolution Last Treating Co mments Source Name Details Category Date Date Treatment Clinician Date Elevated Elevated Disease Active 2020-02 Zoie r prostate prostate 1-17 Colleg e specific specific 00:00: of antigen antigen 00 Medicin (PSA) (PSA) e External External Disease Active 2015-02 Metho di hemorrhoid hemorrhoid -08 [facility] s [facility]: Hospita 00 l Crohn's Crohn's Disease Active 2014-[address] [facility] [address] [facility] disease [facility]23 [facility] Gallstones Gallstones Disease Active 2014-[address] [facility] Crohn's Crohn's Disease Active Univers disease disease 16 ity of 00:00: [place] 00 Medical Branch Hemorrhoid Problem Active 2019-10-27 M emoria s 04:01:04 l (disorder) Luis M n Hemorrhoid s (disorder) [facility] Problem Active 2019-10-27 M emoria (disorder) 04:01:04 l Teja Osteopenia (disorder) Active Problem 10/27/2019 [facility] No known No known Disease Unive rs active active ity of problems problems [facility] History of Past Illness Condition Condition Condition Status Onset Resolution Last Treating Co mments Source Name Details Category Date Date Treatment Clinician Date Crohn's Problem 2019-10-27 2019-10-27 Memoria disease of 10-24 04:01:04 04:01:04 l both small Crohn's 17:00: Her harvey and large disease of 00 intestine both small without and large complicati intestine ons without complicati ons 10/25/2019 10/27/2019 [facility] Second Problem 2019-10-27 2019-10-27 M emoria degree 10-24 04:01:04 04:01:04 l hemorrhoid Second 12:27: Herm agustin s degree 00 hemorrhoid s 10/25/2019 10/27/2019 [facility] Diverticul Problem 2019-10-27 2019-10-27 Memoria osis of 10-24 04:01:04 04:01:04 l large 12:27: Teja intestine Diverticul 00 without osis of perforatio large n or intestine abscess without with perforatio bleeding n or abscess with bleeding 0 10/27/2019 [facility] Allergies, Adverse Reactions, Alerts Allergy Allergy Status Severity Reaction(s) Onset Inactive Treating Comm ents Source Name Type Date Date Clinician Ciproflo Propensi Active 2015-02 Method i xacin ty to 03-06 st adverse 00:00: Hospita reaction 00 l s to drug Ciproflo Drug Active Rash 2014-[address] [facility] [address] xacin Allergy 03-18 [facility] Ciproflo Drug Active Unknown - Unive rs xacin Allergy See comments 05-17 ity of 00:00: [place] 00 [facility] CIPROFLO DRUG Active Low Rash Univers XACIN INGREDI 05-17 ity of 00:00: [place] 00 [facility] Branch Ciproflo Propensi Active Rash Wendi xacin ty to 05-17 Seybold Hydrochl adverse 00:00: oride reaction 00 s Ciproflo Propensi Active [facility] xacin ty to 05-17 College adverse 00:00: of reaction 00 Medicin s to e drug NO KNOWN Drug Active Univers ALLERGIE Class ity of S [facility] Cipro Cipro Active Donyaoria gustavo Lezama Social History Social Habit Start Date Stop Date Quantity Comments Source Exposure to Not sure [facility] SARS-CoV-2 (event) Medica l Branch History SDOH Wendi Sejoanieo ld Alcohol Binge History SDOH Wendi Sejoanieo ld Alcohol Frequency History SDOH Wendi Shaffero ld Alcohol Std Drinks Alcohol Comment 2020-11-26 2020-11-26 Social Wendi Se ybold 00:00:00 00:00:00 Alcohol intake 2016-01-05 2016-01-05 .29 /d [facility] 00:00:00 00:00:00 Tobacco use and 2015-01-16 2015-01-[address] Stephanie kes - exposure 00:00:00 00:00:00 Medical Center Sex [birth year] [facility] 00:00:00 00:00:00 Smoking Status Start Date Stop Date Source Unknown if ever smoked [facility] Social History [facility] Medications Ordered Filled Start Stop Current Ordering Indication Dosage Frequency Signature Comments Components Source Medication Medication Date Date Medication? Clinician (SIG) Name Name benzonatate 2020-02- No [id number] 200mg Take 1 Univers 200 mg 04-03-16 capsule by ity of capsule 00:00: 05:59 mouth 3 [place] 00 :00 (three) Medical times Branch daily as needed for Cough for up to 10 days. gentamicin 2020-02- No [id number] 160mg [facility] (GARAMYCIN) 03-15 College 40 mg/mL 21:00: 20:56 of injection 00 :00 Medicin 160 mg e gentamicin 2020-02- No [id number] 160mg 160 mg, John (GARAMYCIN) 03-15 [facility] ollege 40 mg/mL 21:00: 20:56 lar, ONCE, of injection 00 :00 1 dose, On Medi ramandeep 160 mg Wed e 01/13/21 at 1500 sulfamethox 2020-02 Yes 1{tbl} Take 1 Ba [facility]lor azole-trime 0-13 Tablet by Col legdia thoprim 00:00: mouth two of (BACTRIM 00 times Medicin DS) 800-160 daily. e MG per Start tablet taking on 01/10 Rectal 2020-02 Yes Use as John Cleansers 0-13 directed Colleg e (FLEET 00:00: from box of Idylis 00 instructio Medic in CLEANSING ns 3 hours e ENEMA) ENEM prior to procedure Adalimumab Yes 40mg Inject 40 Ke lsey 40 MG/0.8ML 9-30 mg into Seybo ld subcutaneou 06:00: the skin s Prefilled 09 every 14 Syringe Kit days tadalafil Yes [id number] 5mg Take 1 [facility] (CIALIS) 5 7-07 Tablet by Raheem ege MG tablet 00:00: mouth of 00 daily. Medicin e tadalafil Yes [id number] Take 1 tab [facility] (CIALIS) 20 7-07 by mouth Raheem ege MG tablet 00:00: 30 minutes of 00 prior to Medicin intercours e e daily PRN DUREZOL 0 Yes John 0.05 % 08-13 [place] ophthalmic 00:00: of emulsion 00 Medicin e DUREZOL 0 Yes John 0.05 % 08-13 [place] ophthalmic 00:00: of emulsion 00 Medicin e HUMIRA PEN 0 Yes [facility] 40 MG/0.4ML 08-03 [place] PNKT 00:00: of 00 Medicin e HUMIRA PEN 2021-0 Yes John 40 MG/0.4ML 08-03 [place] PNKT 00:00: of 00 Medicin e valsartan Yes TAKE 1 John (DIOVAN) 5-11 TABLET BY Colleg e 160 MG 00:00: MOUTH of tablet 00 EVERY DAY Medicin e valsartan Yes TAKE 1 John (DIOVAN) 5-11 TABLET BY Colleg e 160 MG 00:00: MOUTH of tablet 00 EVERY DAY Medicin e triamcinolo Yes [id number] Apply to [facility] 417 area(s) 3 ity of acetonide 00:00: (three) [place] 0.1 % 00 times Medical ointment daily. Branch triamcinolo Yes [id number] Apply to [facility] 417 area(s) 3 ity of acetonide 00:00: (three) [place] 0.1 % 00 times Medical ointment daily. Branch valsartan Yes 160mg Take 160 Uni vers 160 mg 4-02 mg by ity of tablet 00:00: mouth [place] 00 every Medical morning. Branch valsartan Yes 160mg Take 160 Uni vers 160 mg 4-02 mg by ity of tablet 00:00: mouth [place] 00 every Medical morning. Branch Valsartan Yes 160mg Take 160 Eliezer sey 160 MG oral 4-02 mg by Seybold Tablet 00:00: mouth 00 every morning LR 1,000 mL No 1,000 mL, M emoria 828 IV, 30 l 11:35: mL/hr, Teja 00 start date 10/25/19 6:35:00 CDT, 2.13, m2 Lidocaine No 0.2 mL, Memor ia 2% 0.2 mL 10-24 Injection, l IV Start 11:35: Subcutaneo Her harvey [[facility]] 00 us, Once PRN for other (see comment), first dose 10/25/19 6:35:00 CDT propofol No 50 mg = 5 [place] south 9-28 mL, l 13:22: Emulsion, Teja 00 IV, Once, first dose 11/24/17 8:22:00 CDT, stop date 11/24/17 8:22:00 CDT propofol 2018- No 50 mg = 5 [place] -28 mL, l 13:19: Emulsion, Jonancy 00 IV, Once, first dose 11/24/17 8:19:00 CDT, stop date 11/24/17 8:19:00 CDT propofol 2017- No 50 mg = 5 [place] -28 mL, l 13:16: Emulsion, Jonancy 00 IV, Once, first dose 11/24/17 8:16:00 CDT, stop date 11/24/17 8:16:00 CDT lidocaine 2018- No 3 mL, Memoria 11-24 Injection, l 13:13: IV, Once, first dose 11/24/17 8:13:00 CDT, stop date 11/24/17 8:13:00 CDT propofol 2017- No 150 mg = Memor ia 11-24 15 mL, l 13:13: Emulsion, 00 IV, Once, first dose 11/24/17 8:13:00 CDT, stop date 11/24/17 8:13:00 CDT Lidocaine 2018- Yes 0.2 mL, Memor ia 2% 0.2 mL 11-24 Injection, l IV Start 12:07: Subcutaneo [facility] [[facility]] 00 us, Once PRN for other (see comment), first dose 11/24/17 7:07:00 CDT LR 1,000 mL 2017- No 1,000 mL, M emoria 11-24 IV, 30 l 12:07: mL/hr, start date 11/24/17 7:07:00 CDT Misc 2015-02 No Simon 800 mL, Memoria Medication 04-07 Corin Soln-IV, l 16:21: IV, Once, first dose 02/05/16 10:21:00 AIR HOSE COUPLER, stop date 02/05/16 10:21:00 AIR HOSE COUPLER propofol 2015-02 No Simon 60 mg = 6 Mem oria 2- Corin mL, l 13:21: Emulsion, Teja 00 IV, Once, first dose 02/05/16 7:21:00 AIR HOSE COUPLER, stop date 02/05/16 7:21:00 AIR HOSE COUPLER propofol 2015-02 No Simon 60 mg = 6 Mem oria - Corin mL, l 13:15: Emulsion, Jonancy 00 IV, Once, first dose 02/05/16 7:15:00 AIR HOSE COUPLER, stop date 02/05/16 7:15:00 AIR HOSE COUPLER Humira 2015-02 Yes mg, Memoria 04-07 Subcutaneo l 13:13: us, q2wk, Jonancy 00 0 Refill(s), CROHN'S DISEASE Humira 2015-02 Yes mg, Memoria 04-07 Subcutaneo l 13:13: us, q2wk, Jonancy 00 0 Refill(s) lidocaine 2015-02 No Simon 2 mL, Memori a 2 Corin Injection, l 13:11: IV, Once, Teja 00 first dose 02/05/16 7:11:00 AIR HOSE COUPLER, stop date 02/05/16 7:11:00 AIR HOSE COUPLER propofol 2015-02 No Simon 180 mg = [place] south 04-07 Corin 18 mL, l 13:11: Emulsion, Jonancy 00 IV, Once, first dose 02/05/16 7:11:00 AIR HOSE COUPLER, stop date 02/05/16 7:11:00 AIR HOSE COUPLER Lidocaine 2015-02 No Homero 0.2 mL, [place] 2% 0.2 mL 04-07 Marisel TUTTLE Injection, l IV Start 13:08: Subcutaneo Her harvey [[facility]] 00 us, Once PRN for other (see comment), first dose 02/05/16 7:08:00 AIR HOSE COUPLER LR 1,000 mL 2015-02 No Homero 1,000 mL, Memoria 04-07 Marisel TUTTLE IV, 30 l 13:08: mL/hr, Teja 00 start date 02/05/16 7:08:00 AIR HOSE COUPLER No known 2015-02 No No known Metho di medications 1-[address] 13:59: s Hospita 51 l Demerol HCl 2015-02 No David 12.5 mg = Memoria 0-12 Sanchez 0.25 mL, l 20:45: Injection, Teja 00 IV Push, Once PRN for shivers, first dose 12/09/15 15:45:00 CDT albuterol 2015-02 No David 2.5 mg = 3 Memoria 2.5 mg/3 mL 0-12 Sanchez mL, Soln, l (0.083%) 20:45: NEB, Once Herm agustin inhalation 00 PRN for solution wheezing, first dose 12/09/15 15:45:00 CDT LR 1,000 mL 2015-02 No David 1,000 mL, Memoria 0-12 Sanchez IV, 75 l 20:45: mL/hr, Jonancy 00 start date 12/09/15 15:45:00 CDT Saline Lock 2015-02 No David 10 mL, M emoria Flush 0-12 Sanchez Soln, IV l 20:45: Push, As Jonancy 00 Indicated PRN for flush, first dose 12/09/15 15:45:00 CDT diphenhydrA 2015-02 No David 25 mg = Memoria MINE 0-12 Sanchez 0.5 mL, l 20:45: Injection, Teja 00 IV Push, Once PRN for itching, first dose 12/09/15 15:45:00 CDT ondansetron 2015-02 No David 8 mg = 1 Memoria 0-12 Sanchez tabs, l 20:45: Tab-Dis, Jonancy 00 Oral, Once PRN for nausea/vom iting, first dose 12/09/15 15:45:00 CDT labetalol 2015-02 No David 5 mg = 1 M emoria 0-12 Sanchez mL, l 20:45: Injection, Teja 00 IV Push, As Indicated PRN for [...] 3 mL, l mL 20:45: Soln, NEB, Jonancy inhalation 00 Once PRN solution for wheezing, first dose 12/09/15 15:45:00 CDT Lactated 2015-02 No Michael IV, start M emoria Ringers 0-12 Ryan date l Injection 20:44: 12/09/15 Herm agustin 00 15:44:00 CDT, stop date 12/09/15 15:44:00 CDT ondansetron 2015-02 No David 4 mg = 2 Memoria 0-12 Sanchez mL, l 20:31: Injection, Jonancy 00 IV, Once, first dose 12/09/15 15:31:00 CDT, stop date 12/09/15 15:31:00 CDT metroNIDAZO 2015-02 No David 500 mg, Memoria LE 0-12 Sanchez Soln-IV, l 20:16: IV, Once, first dose 12/09/15 15:16:00 CDT, stop date 12/09/15 15:16:00 CDT dexamethaso 2015-02 No David 8 mg = 2 Memoria ne 0-12 Sanchez mL, l 20:13: Injection, IV, Once, first dose 12/09/15 15:13:00 CDT, stop date 12/09/15 15:13:00 CDT fentaNYL 2015-02 No David 100 mcg = M emoria 0-12 Sanchez 2 mL, l 20:10: Injection, IV, Once, first dose 12/09/15 15:10:00 CDT, stop date 12/09/15 15:10:00 CDT lidocaine 2015-02 No David 3 mL, Juan Pablo south 0-12 Sanchez Injection, l 20:10: IV, Once, first dose 12/09/15 15:10:00 CDT, stop date 12/09/15 15:10:00 CDT propofol 2015-02 No Davdi 150 mg = Me moria 0-12 Sanchez 15 mL, l 20:10: Emulsion, IV, Once, first dose 12/09/15 15:10:00 CDT, stop date 12/09/15 15:10:00 CDT Misc 2015-02 No David 1,000 mL, Memor ia Medication 0-12 Sanchez Soln-IV, l 20:07: IV, Once, first dose 12/09/15 15:07:00 CDT, stop date 12/09/15 15:07:00 CDT midazolam 2015-02 No David 1 mg = 1 M emoria 0-12 Sanchez mL, l 20:05: Injection, Jonancy 00 IV, Once, first dose 12/09/15 15:05:00 CDT, stop date 12/09/15 15:05:00 CDT fentaNYL 2015-02 No David 50 mcg = 1 Memoria 0-12 Sanchez mL, l 20:05: Injection, Jonancy 00 IV, Once, first dose 12/09/15 15:05:00 CDT, stop date 12/09/15 15:05:00 CDT fentaNYL 2015-02 No David 50 mcg = 1 Memoria 0-12 Sanchez mL, l 20:01: Injection, Teja IV, Once, first dose 12/09/15 15:01:00 CDT, stop date 12/09/15 15:01:00 CDT midazolam 2015-02 No David 1 mg = 1 M emoria 0-12 Sanchez mL, l 20:01: Injection, Jonancy 00 IV, Once, first dose 12/09/15 15:01:00 CDT, stop date 12/09/15 15:01:00 CDT Flagyl IVPB 2015-02 No Ali 500 mg, Mem oria 0-12 Mallory Soln-IV, l 19:00: IV Teja 00 Piggyback, Once, infuse over 60 minutes, first dose 12/09/15 14:00:00 CDT, stop date 12/09/15 14:00:00 CDT, Prophylaxi s LR 1,000 mL 2015-02 No Marito K 1,000 mL, Memoria 0-12 Ovalle IV, 30 l 18:22: mL/hr, Teja 00 start date 12/09/15 13:22:00 CDT Lidocaine 2015-02 No Marito K 0.2 mL, Mem oria 2% 0.2 mL 0-12 [place]le Injection, l IV Start 18:22: Subcutaneo Her harvey [[place]] 00 us, Once PRN for other (see comment), first dose 12/09/15 13:22:00 CDT Humira 2015-02 No 80 mg, Memoria 0-11 Subcutaneo l 14:47: us, q2wk, Jonancy 00 0 Refill(s), crohns Humira 2015-02 No 80 mg, Memoria 0-11 Subcutaneo l 14:47: us, q2wk, Jonancy 00 0 Refill(s), crohns adalimumab 2014-02 Yes 40mg Q14D Inject [address] (HUMIRA) 40 1-25 mg [facility] - mg/0.8 mL 14:18: subcutaneo Me dical injection 20 usly every Cent er 14 (fourteen) days. acetaminoph 2014-02 Yes 1{tbl} Take [address] en-codeine 1-25 tablet by Alpesh s - (TYLENOL 00:00: mouth Medical #3) 300-30 00 every 4 Center mg per (four) tablet hours as needed for Pain for up to 15 doses. fexofenadin Yes 180mg Take 1 Tab John e (ANIBAL) 4-18 by mouth Raheem ege 180 MG 00:00: every of tablet 00 morning. Medicin e fexofenadin Yes 180mg Take 1 Tab [facility] e (ANIBAL) 4-18 by mouth Raheem ege 180 MG 00:00: every of tablet 00 morning. Medicin e ketoconazol Yes Apply [facility] (NIZORAL) 3-24 topically. Co llege 2 % cream 00:00: Apply of 00 twice a Medicin day as e needed ketoconazol Yes Apply [facility] (NIZORAL) 3-24 topically. Co llege 2 % cream 00:00: Apply of 00 twice a Medicin day as e needed adalimumab 2003-02 Yes 40mg inject 40 Un lucho 40 mg/0.8 2-16 mg under ity of mL 00:00: the skin. [place] injection Medical Branch adalimumab 2003-02 Yes 40mg inject 40 Un lucho 40 mg/0.8 2-16 mg under ity of mL 00:00: the skin. [place] injection Medical [place] Vital Signs Vital Name Observation Time Observation Value Comments Source Systolic blood 2021-01-31 17:43:00 112 mm[facility]Hg[facility] Diastolic blood 2021-01-31 17:43:00 72 mm[Hg] [facility] Heart rate 2021-01-31 17:43:00 85 /min [facility] Body temperature 2021-01-31 17:43:00 37.78 Estella [facility] Respiratory rate 2021-01-31 17:43:00 20 /min [facility] Body height 2021-01-31 17:43:00 177.8 cm Universi ty of [facility] Body weight 2021-01-31 17:43:00 98.113 kg Universi ty of [facility] BMI 2021-01-31 17:43:00 31.04 kg/m2 Universi ty [facility] Oxygen saturation in 2021-01-31 17:43:00 96 /min University of Arterial blood by [facility] Pulse oximetry Branch Systolic blood 2021-01-13 20:46:00 112 mm[Hg] [facility] Medicine Diastolic blood 2021-01-13 20:46:00 74 mm[Hg] [facility] Medicine Heart rate 2021-01-13 20:46:00 60 /min [facility] Body temperature 2021-01-13 20:46:00 36.61 Estella [facility] Body height 2021-01-13 20:46:00 177.8 cm [facility] Body weight 2021-01-13 20:46:00 95.255 kg [facility] BMI 2021-01-13 20:46:00 30.13 kg/m2 [facility] Systolic blood 2020-11-26 11:04:00 118 mm[Hg] Wendi Seybold pressure Diastolic blood 2020-11-26 11:04:00 80 mm[Hg] Kelse y Seybold pressure Heart rate 2020-11-26 11:04:00 62 /min Wendi S eybold Body temperature 2020-11-26 11:04:00 36.67 Estella Zahida ey Seybold Respiratory rate 2020-11-26 11:04:00 18 /min Zahida ey Seybold Body height 2020-11-26 11:04:00 175.3 cm Wendi S eybold Body weight 2020-11-26 11:04:00 98.431 kg Wendi S eybold BMI 2020-11-26 11:04:00 32.05 kg/m2 Wendi S eybold Systolic blood 2020-11-26 11:04:00 118 mm[Hg] Wendi Seybold pressure Diastolic blood 2020-11-26 11:04:00 80 mm[Hg] Kelse y Seybold pressure Heart rate 2020-11-26 11:04:00 62 /min Wendi rodriguezbokanchan Body temperature 2020-11-26 11:04:00 36.67 Estella Zahida Nicolas Respiratory rate 2020-11-26 11:04:00 18 /min Zahida Nicolas Body height 2020-11-26 11:04:00 175.3 cm Wendi rodriguezbokanchan Body weight 2020-11-26 11:04:00 98.431 kg Wendi rodriguezbokanchan BMI 2020-11-26 11:04:00 32.05 kg/m2 Wendi rodriguezbokanchan Systolic blood 2020-08-25 14:20:00 148 mm[Hg] [facility] Medicine Diastolic blood 2020-08-25 14:20:00 90 mm[Hg] [facility] Medicine Heart rate 2020-08-25 14:20:00 63 /min [facility] Body temperature 2020-08-25 14:20:00 36.67 Estella [facility] Body height 2020-08-25 14:20:00 177.8 cm [facility] Body weight 2020-08-25 14:20:00 96.163 kg [facility] BMI 2020-08-25 14:20:00 30.42 kg/m2 [facility] Systolic blood 2020-06-13 13:13:00 126 mm[Hg] Univer sity of pressure [facility] Diastolic blood 2020-06-13 13:13:00 83 mm[Hg] Unive rsity of pressure [facility] Heart rate 2020-06-13 13:13:00 63 /min Universi ty of [facility] Body temperature 2020-06-13 13:13:00 36.39 Estella Univ ersity of [facility] Branch Respiratory rate 2020-06-13 13:13:00 18 /min Univ ersity of [facility] Body height 2020-06-13 13:13:00 177.8 cm Universi ty [facility] Body weight 2020-06-13 13:13:00 99.247 kg Universi ty [facility] BMI 2020-06-13 13:13:00 31.39 kg/m2 Universi ty [facility] Oxygen saturation in 2020-06-13 13:13:00 97 /min [facility] of Arterial blood by [facility] Pulse oximetry Branch Systolic blood 2020-06-13 13:13:00 126 mm[Hg] Univer sity of pressure [place] Medical [place] Diastolic blood 2020-06-13 13:13:00 83 mm[Hg] Unive rsity of pressure [facility] Heart rate 2020-06-13 13:13:00 63 /min Universi ty of [place] Medical [place] Body temperature 2020-06-13 13:13:00 36.39 Estella Univ ersity of [facility] Respiratory rate 2020-06-13 13:13:00 18 /min Univ ersity of [facility] Body height 2020-06-13 13:13:00 177.8 cm Universi ty [facility] Body weight 2020-06-13 13:13:00 99.247 kg Universi ty [facility] BMI 2020-06-13 13:13:00 31.39 kg/m2 Universi ty [facility] Oxygen saturation in 2020-06-13 13:13:00 97 /min [facility] of Arterial blood by [facility] Pulse oximetry Branch Respitory Rate 2019-10-25 13:03:00 Memori al Teja Respitory Rate 2019-10-25 12:50:00 Memori al Jonancy Systolic (mm Hg) 2019-10-25 12:50:00 Juan Pablo rial Teja Diastolic (mm Hg) 2019-10-25 12:50:00 Mem orial Jonancy Respitory Rate 2019-10-25 12:40:00 Memori al Jonancy Systolic (mm Hg) 2019-10-25 12:40:00 Juan Pablo rial Jonancy Diastolic (mm Hg) 2019-10-25 12:40:00 Mem orial Teja Temperature Oral (F) 2019-10-25 12:30:00 37 Estella [facility] Teja Systolic (mm Hg) 2019-10-25 12:30:00 Juan Pablo rial Jonancy Diastolic (mm Hg) 2019-10-25 12:30:00 Mem orial Jonancy Temperature Oral (F) 2019-10-25 11:40:00 36.9 Estella [facility] Jonancy Height 2019-10-25 11:40:00 177 cm Memorial Jonancy Height 2019-10-20 22:00:00 177 cm Memorial Teja Respitory Rate 2017-11-24 15:45:00 Memori al Teja Systolic (mm Hg) 2017-11-24 15:45:00 Juan Pablo rial Jonancy Diastolic (mm Hg) 2017-11-24 15:45:00 Mem orial Jonancy Systolic (mm Hg) 2017-11-24 13:40:00 Juan Pablo rial Jonancy Diastolic (mm Hg) 2017-11-24 13:40:00 Mem orial Teja Respitory Rate 2017-11-24 13:40:00 Memori al Teja Respitory Rate 2017-11-24 13:30:00 Memori al Teja Heart Rate 2017-11-24 13:30:00 Memorial Jonancy Systolic (mm Hg) 2017-11-24 13:30:00 Juan Pablo rial Jonancy Diastolic (mm Hg) 2017-11-24 13:30:00 Mem orial Jonancy Temperature Oral (F) 2017-11-24 13:20:00 36.2 Estella [facility] Teja Heart Rate 2017-11-24 13:20:00 Memorial Jonancy Temperature Oral (F) 2017-11-24 12:03:00 36.7 Estella [facility] Jonancy Height 2017-11-24 12:03:00 177 cm Memorial Teja Height 2017-11-19 19:48:00 177 cm Memorial Jonancy Systolic (mm Hg) 2016-02-05 14:27:00 Juan Pablo rial Jonancy Respitory Rate 2016-02-05 14:27:00 Memori al Jonancy Systolic (mm Hg) 2016-02-05 13:40:00 Juan Pablo rial Jonancy Respitory Rate 2016-02-05 13:40:00 Memori al Jonancy Heart Rate 2016-02-05 13:40:00 Memorial Jonancy Systolic (mm Hg) 2016-02-05 13:30:00 Juan Pablo rial Teja Heart Rate 2016-02-05 13:30:00 Memorial Jonancy Respitory Rate 2016-02-05 13:30:00 Memori al Teja Heart Rate 2016-02-05 13:20:00 Memorial Teja Temperature Oral (F) 2016-02-05 13:20:00 37.1 Estella [facility] Teja Weight 2016-02-05 13:10:00 Memorial Teja Height 2016-02-05 13:10:00 177 cm Memorial Jonancy Temperature Oral (F) 2016-02-05 13:10:00 36.5 Estella [facility] Jonancy Weight 2016-01-18 22:32:00 Memorial Jonancy Height 2016-01-18 22:32:00 177.80 cm Memorial Jonancy Systolic (mm Hg) 2015-12-09 21:56:00 Juan Pablo rial Jonancy Respitory Rate 2015-12-09 21:56:00 Memori al Teja Heart Rate 2015-12-09 21:20:00 Memorial Jonancy Systolic (mm Hg) 2015-12-09 21:20:00 Juan Pablo rial Jonancy Respitory Rate 2015-12-09 21:20:00 Memori al Jonancy Respitory Rate 2015-12-09 21:10:00 Memori al Jonancy Systolic (mm Hg) 2015-12-09 21:10:00 Juan Pablo rial Jonancy Heart Rate 2015-12-09 21:10:00 Memorial Jonancy Heart Rate 2015-12-09 21:00:00 Memorial Jonancy Temperature Oral (F) 2015-12-09 20:40:00 36.7 Estella [facility] Teja Height 2015-12-09 18:26:00 177.80 cm Memorial Jonancy Weight 2015-12-09 18:26:00 Memorial Jonancy Temperature Oral (F) 2015-12-09 18:26:00 36.9 Estella [facility] [place] Height 2015-12-08 14:35:00 178 cm Memorial Jonancy Weight 2015-12-08 14:35:00 Memorial Jonancy Procedures Procedure Date / Time Performing Clinician Source Performed POCT RAPID FLU A AND B 2021-01-31 00:00:00 David Nelson [facility] POCT URINALYSIS 2021-01-13 00:00:00 Micheal Jimenez [facility] Medicine COLONOSCOPY FLEXIBLE; 2019-10-25 12:10:00 Memori al Teja DIAGNOSTIC; INCL. COLLECTION OF SPECIMENS 11706 (N/A)<sup>1</sup> COLONOSCOPY FLEXIBLE; 2017-11-24 13:15:00 Memori al Jonancy DIAGNOSTIC; INCL. COLLECTION OF SPECIMENS 99862 (Other)<sup>1</sup> EXCISION FULL THICKNESS 2015-12-09 20:26:00 Linwood Tejada TUMOR BY PROCTOTOMY 07008 (Other)<sup>3</sup> Cholecystectomy<sup>1</ 2014-02-27 00:00:00 Juan Pablo Lezama sup> incisional hernia 2008-02-28 00:00:00 Maureen aurora colon 2003-02-27 00:00:00 [facility] resction<sup>2</sup> Colonoscopy [facility] Teja Plan of Care Planned Activity Planned Date Details Comments Source Future Scheduled 2021-03-30 INFLUENZA VACCINE [code = [facility] Test 13:16:02 INFLUENZA VACCINE] Hospital Future Scheduled 2021-03-30 COVID-19 VACCINE (1) [facility] 13:16:02 [code = COVID-19 VACCINE Hos pital (1)] Future Scheduled 2021-03-30 COLONOSCOPY SCREENING [facility] Test 13:16:02 [code = COLONOSCOPY Hospital SCREENING] Future Scheduled 2021-03-30 SHINGLES VACCINES (#1) [facility] Test 13:16:02 [code = SHINGLES VACCINES Ho spital (#1)] Future Scheduled 2021-01-13 Screening for malignant [facility] Test 16:15:36 neoplasm of colon Medicine (procedure) [code = 939850807] Future Scheduled 2021-01-13 COVID-19 Vaccine (1) [facility] Test 16:15:36 [code = COVID-19 Vaccine Med icine (1)] Future Scheduled 2021-01-13 TETANUS SHOT (ADULT) [facility] Test 16:15:36 [code = TETANUS SHOT Medicin e (ADULT)] Future Scheduled 2021-01-13 BMI FOLLOW UP PLAN [code [facility] Test 16:15:36 = BMI FOLLOW UP PLAN] Medici ne Future Scheduled 2021-01-13 Hepatitis C screening Ba [facility] Test 16:15:36 (procedure) [code = Medicine 754062423] Future Scheduled 2021-01-13 Human immunodeficiency B [facility] Test 16:15:36 virus screening Medicine (procedure) [code = 205516142] Future Scheduled 2021-01-13 ZOSTER VACCINE (1 of 2) [facility] Test 16:15:36 [code = ZOSTER VACCINE (1 Me dicine of 2)] Future Scheduled 2021-01-13 FLU VACCINE > 6 MONTHS B [facility] Test 16:15:36 [code = FLU VACCINE > 6 Medi cine MONTHS] Future Scheduled 2021-01-13 US TRANSRECTAL W/KYLEE [facility] Test 14:15:50 BIOPSY [code = 24269] Medici ne Future Scheduled 2020-08-25 Screening for malignant [facility] 09:22:23 neoplasm of colon Medicine (procedure) [code = 268655548] Future Scheduled 2020-08-25 COVID-19 Vaccine (1) [facility] Test 09:22:23 [code = COVID-19 Vaccine Med icine (1)] Future Scheduled 2020-08-25 TETANUS SHOT (ADULT) [facility] Test 09:22:23 [code = TETANUS SHOT Medicin e (ADULT)] Future Scheduled 2020-08-25 Hepatitis C screening [facility] Test 09:22:23 (procedure) [code = Medicine [id number]] Future Scheduled 2020-08-25 Human immunodeficiency B [facility] Test 09:22:23 virus screening Medicine (procedure) [code = 791429504] Future Scheduled 2020-08-25 ZOSTER VACCINE (1 of 2) [facility] 09:22:23 [code = ZOSTER VACCINE (1 Me dicine of 2)] Future Scheduled 2020-08-25 FLU VACCINE > 6 MONTHS B [facility] Test 09:22:23 [code = FLU VACCINE > 6 Medi cine MONTHS] Encounters Start End Encounter Admission Attending Care Care Encounter Source Date/Time Date/Time Type Type Clinicians Facility Department ID 2021-01-31 2021-01-31 [facility] [id number] [facility] 11:40:00 12:18:34 DAVID s[place] f [facility] 2021-01-31 2021-01-31 Urgent [facility] [id number] Univers 11:37:31 11:57:31 Care [facility] [id number] [place] 4.2.7.2.686 Carlos Manuel as EFREM?BLEA [phone] Vt dical [address] MEDICAL OFFICE BUILDING 2021-01-31 2021-01-31 Outpatient R [facility] [id number] Univers 11:40:00 11:40:00 [id number] [facility] 2021-01-13 2021-01-13 Office JIMENEZCHENTE RAHMAN [id number] [facility] 14:15:49 19:32:35 Visit MICHEAL AMBULATOR 350.1.13.21 College Y 0.2.7.2.686 of [id number] Medi ramandeep 300 e 2020-12-10 2020-12-10 Outpatient CHENTE SCOTT [facility] [id number] [facility] 16:49:14 16:55:28 PHILIPPE Colleg e of Medicin e 2020-11-30 2020-11-30 Outpatient [facility] [id number] [facility] 09:50:40 09:50:40 Colleg e of Medicin e 2020-11-26 2020-11-26 Outpatient XET42-SPU WENDI LESLIE [id number] Wendi 07:10:00 07:10:00 Seybol d 2020-11-26 2020-11-26 Office Munir, Marcus Chem [place] [id number] Wendi 05:58:22 06:28:22 Visit Munir, Marcus Chem 350.1.13.13 Seybold 1.2.7.2.686 [id number] 1 2020-11-26 2020-11-26 Office Munir, Cp [place] [id number] 05:58:22 06:28:22 Visit Chem 350.1.13.13 1.2.7.2.686 [id number] 1 2020-08-25 2020-08-25 Office CHENTE Scott [id number] [facility] 09:07:48 09:17:48 Visit Philippe AMBULATOR 350.1.13.21 College Y 0.2.7.2.686 of [id number] Medi ramandeep 300 e 2020-06-13 2020-06-13 Urgent Provider, [facility] Urgent Care [facility] [id number] Univers 08:07:39 08:27:39 Care Green, Wen Health 350.1.13.10 ity of [place] 4.2.7.2.686 Carlos Manuel as Professio [phone] [address] Office Building One 2020-06-13 2020-06-13 Urgent Provider, [facility] [id number] 08:07:39 08:27:39 Care Ang [facility] 350.1.13.10 Care [place] 4.2.7.2.686 Professio [id number] [place] [address] Office Building One 2020-06-13 2020-06-13 Outpatient [facility] [id number] Univers 08:00:00 08:00:00 [id number] ity of [facility] 2020-06-13 2020-06-13 [facility]patient [facility] [id number] Univers 08:00:00 08:00:00 WEN ity [facility] 2020-01-31 2020-01-31 Laboratory Lab, [facility] Fam Pob I [facility] 1.2. [id number] [id number] Univers 15:37:48 15:57:48 Only Sasha Dodsone [facility] 350.1.13.10 ity of [place] 4.2.7.2.686 Carlos Manuel as Professio [phone] [address] Office Building [facility] 2020-01-31 2020-01-31 Laboratory Lab, [facility] 1.2.840.114 [id number] 15:37:48 15:57:48 Only Fam Pob I Health 350.1.13.10 [place] 4.2.7.2.686 Professio [phone] [place] [address] Office Building [facility] 2020-01-31 2020-01-31 Outpatient R [facility] [id number] Univers 15:40:00 15:40:00 ity [facility] 2020-01-31 2020-01-31 Letter Doctor SAUL [id number] Univers 00:00:00 00:00:00 (Out) Unassigned, EWA 350.1.13.10 ity of [place] [facility] 4.2.7.2.686 Carlos Manuel as [phone] [address] 2020-01-31 2020-01-31 Letter Doctor KG [id number] 00:00:00 00:00:00 (Out) Unassigned, EWA 350.1.13.10 [place] [facility] 4.2.7.2.686 [id number] [id number] 2019-10-25 2019-10-25 Outpatient [facility] [id number] Memoria 11:27:26 13:13:00 judith [facility] 2018-10-26 2018-10-26 Emergency E [facility] [id number] [facility] 13:47:00 13:47:00 2017-11-24 2017-11-24 Outpatient [facility] [id number] Memoria 11:43:27 14:37:00 judith [facility] 2016-02-05 2016-02-05 Outpatient [facility] [id number] Memoria 06:23:42 08:10:00 judith Lezama 2015-12-09 2015-12-09 Outpatient [facility] [id number] Memoria 13:06:35 16:54:00 judith Lezama Results Test Description Test Time Test Comments Results Result Comments Source POCT RAPID FLU A AND B TEST 2021-01-31 18:05:00 Test Item Value Reference Range Interpretation Comme nts POCT INFLUENZA A (test code = 3840) Neg Negative - Negativ e POCT INFLUENZA B (test code = 3841) Neg Negative - Negativ e Lab Interpretation (test code = 46635-9) Normal [facility] URINALYSIS [id number] 00:00:00 Test Item Value Reference Range Interpretation Comments COLOR UA (test code = 5778-6) Yellow YELLOW/STRAW CLARITY UA (test code = 38785-7) Clear CLEAR GLUCOSE UA (test code = 5792-7) Negative NEGATIVE BILIRUBIN UA (test code = 5770-3) Negative NEGATIVE KETONES UA (test code = 43757-8) Negative NEGATIVE SPECIFIC GRAVITY UA (test code = 1.005-1.035 5811-5) BLOOD UA (test code = 5794-3) Negative NEGATIVE PH UA (test code = 5803-2) 5-9 PROTEIN UA (test code = 5804-0) Negative NEGATIVE UROBILINOGEN UA (test code = 0.02 E.U/DL NORMAL MG/DL 5818-0) LEUKOCYTE ESTERASE UA (test code Negative NEGATIVE = 5799-2) NITRITE UA (test code = 5802-4) Negative NEGATIVE REDUCING SUBSTANCES URINE (test code = 36584-6) [facility])2019-09-02 19:19:00 Test Item Value Reference Range Interpretation Comments SARS-COV2/RT-PCR (test Not Detected Not Detected, Negative code = 9856982) SARS-COV-2 PERFORMING LAB [facility] (test code = 0311109) Negative results do not preclude SARS-CoV-2 infection and should not be used as the sole basis for patient management decisions. Negative results must be combined with clinical observations, patient history, and epidemiological information. A false negative result may occur if a specimen is improperly collected, transported or handled.The limit of detection for this assay is 250 copies/mL.This SARS CoV-2 test is a rapid, real-time RT-PCR test intended for the qualitative detection of nucleic acid from SARS-CoV-2 in a nasopharyngeal swab specimen collected from individuals suspected of COVID-19 by their healthcare provider.This test has not been Food and Drug Administration (FDA) cleared or approved and has been authorized by FDA under an Emergency Use Authorization (EUA). This EUA will be effective until the declaration that circumstances exist justifying the authorization of the emergency use of in vitro diagnostic tests for detection and/or diagnosis of COVID-19 is terminated under Section 564(b)(2) of the Act or the EUA is revoked under Section 564(g) of the Act.Fact Sheet for Healthcare Pro viders:https://www.Seer.STWA/Documents/Xpert%20Xpress%20SARS%20CoV-2/Fact%20Sh eets/045-6402%99GXXU-TSW-9%20HEALTHCARE%20PROVIDERS%20FACT%20SHEET.pdfFact Sheet for Healthcare Patients:https://www.Wiseryou.STWA/Documents/Xpert%20Xpress%20SARS%20CoV-2/Fact%20Sheets/3023801%20SARS-COV -2%20PATIENT%20FACT%20SHEET.pdfPerforming Laboratory:[facility] [place] [address]
[2021-05-16 22:03] LABS: Absolute Lymphocytes (CBC) 2.3 K/uL (0.7-4.9); Hematocrit 41.8 % (39.6-49.0); Lymphocytes % 20.4 % (15.3-44.8); MPV 8.3 fL (7.6-11.3); RBC Red Blood Cell Count 4.78 M/uL (4.33-5.43)
[2021-05-16 22:23] LABS: Albumin 3.6 g/dL (3.4-5.0); Bilirubin Total 0.5 mg/dL (0.2-1.0); Potassium 3.8 mmol/L (3.5-5.1); Protein, Total 7.4 g/dL (6.4-8.2)
[2021-05-16 22:50] LABS: Urine Blood Negative (Negative); Urine Glucose Negative (Negative); Urine Protein Negative (Negative); Urine Specific Gravity >=1.030 (1.005-1.030); Urine pH 5.5 (5.0-7.0)
[2021-05-16 23:02] LABS: Urine Bacteria <20 /HPF (NONE SEEN); Urine Mucus 2+ /HPF (NONE SEEN); Urine RBC <5 /HPF (NONE SEEN)
--- NOTE | 2021-05-17 00:20 | EDPHYS ---
Physician Documentation [facility] Name: Tony Wen Age: 55 yrs Sex: Male : 1965 Arrival Date: 05/16/2021 Time: 21:06 Bed 16 Private MD: Baldo Breen R ED Physician Declan Helms HPI: 05/16 21:22 This 55 yrs old Male presents to ER via Ambulatory with complaints of Abdominal Pain. ms3 21:22 The patient presents with abdominal pain in the periumbilical area. Onset: The ms3 symptoms/episode began/occurred last night. The symptoms do not radiate. Associated signs and symptoms: none. The symptoms are described as achy. Modifying factors: The symptoms are alleviated by nothing, the symptoms are aggravated by nothing. Severity of pain: At its worst the pain was moderate in the emergency department the pain has improved. 55-year-old male with past medical history of Crohn's disease, hypertension presents for abdominal pain that began last night. Patient states the pain is located periumbilically and is a bloated feeling. Patient denies pain at this time. Patient states he has had GERD, nausea and 2 episodes of emesis. Patient states he did have a colon resection in 2003.. Historical: - Allergies: 21:18 Cipro; ld1 - Home Meds: 21:18 valsartan 160 mg oral tab 1 tab once daily [Active]; ld1 - PMHx: 21:18 chrons disease; Hypertensive disorder; ld1 - PSHx: 21:18 Hernia repair; Colon resection; ld1 - Immunization history:: Adult Immunizations up to date, Client reports having NOT received the Covid vaccine. - Social history:: Smoking status: Patient denies any tobacco usage or history of. Patient/guardian denies using alcohol. ROS: 21:22 Constitutional: Negative for fever, and chills. Eyes: Negative for injury, pain, ms3 redness, and discharge, Neck: Negative for injury, pain, and swelling, Cardiovascular: Negative for chest pain, and palpitations. Respiratory: Negative for shortness of breath, cough, wheezing, and pleuritic chest pain, Back: Negative for injury and pain, MS/Extremity: Negative for injury and deformity, Skin: Negative for injury, rash, and discoloration. 21:22 Abdomen/GI: Positive for abdominal pain, nausea and vomiting. 21:22 All other systems are negative. Exam: 21:22 Constitutional: This is a well developed, well nourished patient who is awake, alert, ms3 and in no acute distress. Head/Face: Normocephalic, atraumatic. Neck: Trachea midline, no cervical lymphadenopathy. Supple, full range of motion without nuchal rigidity, or vertebral point tenderness. No Meningismus. Chest/axilla: Normal chest wall appearance and motion. Nontender with no deformity. Cardiovascular: Regular rate and rhythm with a normal S1 and S2. No gallops, murmurs, or rubs. Normal PMI, no JVD. No pulse deficits. Respiratory: Lungs have equal breath sounds bilaterally, clear to auscultation and percussion. No rales, rhonchi or wheezes noted. No increased work of breathing, no retractions or nasal flaring. Abdomen/GI: Soft, non-tender, with normal bowel sounds. No distension or tympany. No guarding or rebound. No evidence of tenderness throughout. Skin: Warm, dry with normal turgor. Normal color with no rashes, no lesions, and no evidence of cellulitis. Neuro: Awake and alert, GCS 15, oriented to person, place, time, and situation. Cranial nerves II-XII grossly intact. Motor strength 5/5 in all extremities. Sensory grossly intact. Cerebellar exam normal. Normal gait. Psych: Awake, alert, with orientation to person, place and time. Behavior, mood, and affect are within normal limits. Vital Signs: 21:17 BP 132 / 94; Pulse 80; Resp 18; Temp 98.2(TE); Pulse Ox 98% on R/A; Weight 94.35 kg; ld1 Height 5 ft. 10 in. (177.80 cm); Pain 2/10; 23:03 BP 123 / 76; Pulse 75; Resp 16; Pulse Ox 100% on R/A; Pain 0/10; st1 05/17 00:43 BP 127 / 82; Pulse 67; Resp 16; Pulse Ox 100% on R/A; st1 04:28 BP 119 / 84; Pulse 74; Resp 16; Pulse Ox 98% on R/A; st1 05:32 BP 126 / 71; Pulse 60; Resp 16; Pulse Ox 100% on R/A; st1 05/16 21:17 Body Mass Index 29.85 (94.35 kg, 177.80 cm) ld1 MDM: 05/16 21:22 Differential diagnosis: appendicitis, bowel obstruction, diverticulitis, Irritable ms3 bowel syndrome, non-specific abd pain. 21:49 Patient medically screened. ms3 05/17 00:36 Data reviewed: vital signs, nurses notes, lab test result(s), radiologic studies. Data ms3 interpreted: Pulse oximetry: on room air is 100 %. Interpretation: normal. Counseling: I had a detailed discussion with the patient and/or guardian regarding: the historical points, exam findings, and any diagnostic results supporting the discharge/admit diagnosis, lab results, the need for further work-up and treatment in the hospital. ED course: Discussed case with YOSVANY Kang, and he accepts patient on behalf of Dr Hayden. Discussed plan for admission with patient and he understands/ agrees with plan.. 05/16 21:22 Order name: CBC with Diff; Complete Time: 00:14 ms3 05/16 21:22 Order name: CMP; Complete Time: 00:14 ms3 05/16 21:22 Order name: Lipase; Complete Time: 00:14 ms3 05/16 21:22 Order name: Urine Microscopic Only; Complete Time: 00:14 ms3 05/16 22:49 Order name: Urine Dipstick-Ancillary; Complete Time: 00:14 EDMS 05/16 23:34 Order name: COVID-19/FLU A+B (Document "Date of Onset" if Symptomatic); Complete Time: cs9 01:35 05/16 21:22 Order name: CT Abd/Pelvis - IV Contrast Only ms3 05/16 21:22 Order name: IV Saline Lock; Complete Time: 21:58 ms3 05/16 21:22 Order name: Labs collected and sent; Complete Time: 21:58 ms3 05/17 00:48 Order name: NPO; Complete Time: 03:10 la1 Administered Medications: 06:51 Discontinued: NS 0.9% 1000 ml IV at 125 ml/hr continuous st1 00:32 Drug: Rocephin - (cefTRIAXone) 1 grams Route: IVPB; Infused Over: 30 mins; Site: left st1 antecubital; 00:32 Drug: Flagyl (metroNIDAZOLE) 500 mg Volume: 100 ml; Route: IVPB; Rate: 200 ml/hr; st1 Infused Over: 30 mins; Site: left antecubital; 00:32 Drug: SOLU-Medrol (methylPrednisoLONE) 125 mg Route: IVP; Site: left antecubital; st1 03:15 Drug: NS 0.9% 1000 ml Route: IV; Rate: 125 ml/hr; Site: left antecubital; st1 Disposition Summary: 05/17/21 00:20 Hospitalization Ordered Hospitalization Status: Inpatient Admission ms3 Provider: Gigi Hayden ms3 Condition: Stable ms3 Problem: new ms3 Symptoms: are unchanged ms3 Bed/Room Type: Standard ms3 Location: Telemetry/MedSurg (Inpatient)(05/17/21 12:01) bd Room Assignment: [facility](05/17/21 12:01) bd Diagnosis - Bowel obstruction ms3 - Crohn's disease of small intestine with other complication ms3 Forms: - Medication Reconciliation Form ms3 - SBAR form ms3 Signatures: Dispatcher [employer] EDMS Melani Plascencia Lee, IRRIGATOR SPRINKLING SYSTEM-C IRRIGATOR SPRINKLING SYSTEM-Cla1 Damaris Sheikh, RN RN cg Declan Helms, DO ms3 Luz Leone RN RN ld1 Marimar Geiger, VALENTINE RN st1 Corrections: (The following items were deleted from the chart) 00:29 00:20 Telemetry/MedSurg (Inpatient) ms3 cg 00:29 00:20 ms3 cg 12: 00:29 [facility] ER HOLD cg bd 12: 00:29 ERHOLD- cg bd
--- NOTE | 2021-05-17 00:20 | ER ---
Nurse's Notes [facility] Name: Toyn Wen Age: 55 yrs Sex: Male : 1965 Arrival Date: 05/16/2021 Time: 21:06 Bed 16 Private MD: Baldo Breen R Diagnosis: Bowel obstruction;Crohn's disease of small intestine with other complication Presentation: 05/16 21:17 Chief complaint: Patient states: ABD pain X 1 day. N/V/D. Coronavirus screen: At this ld1 time, the client does not indicate any symptoms associated with coronavirus-19. Ebola Screen: No symptoms or risks identified at this time. Initial Sepsis Screen: Does the patient meet any 2 criteria? No. Patient's initial sepsis screen is negative. Does the patient have a suspected source of infection? No. Patient's initial sepsis screen is negative. Risk Assessment: Do you want to hurt yourself or someone else? Patient reports no desire to harm self or others. Onset of symptoms was May 16, 2021 at 21:18. 21:17 Method Of Arrival: Ambulatory ld1 21:17 Acuity: LEANNE 3 ld1 Triage Assessment: 21:18 General: Appears in no apparent distress. comfortable, Behavior is calm, cooperative, ld1 appropriate for age. Pain: Complains of pain in umbilical area Pain does not radiate. Pain currently is 2 out of 10 on a pain scale. at worst was 8 out of 10 on a pain scale. Quality of pain is described as pressure, Pain began suddenly. Pain: Is intermittent. Neuro: Level of Consciousness is awake, alert, obeys commands, Oriented to person, place, time, situation, Cardiovascular: Capillary refill < 3 seconds Patient's skin is warm and dry. Respiratory: Airway is patent Respiratory effort is even, unlabored, Respiratory pattern is regular, symmetrical. GI: Abdomen is round non-distended. : No signs and/or symptoms were reported regarding the genitourinary system. Derm: No signs and/or symptoms reported regarding the dermatologic system. Musculoskeletal: No signs and/or symptoms reported regarding the musculoskeletal system. Historical: - Allergies: 21:18 Cipro; ld1 - Home Meds: 21:18 valsartan 160 mg oral tab 1 tab once daily [Active]; ld1 - PMHx: 21:18 chrons disease; Hypertensive disorder; ld1 - PSHx: 21:18 Hernia repair; Colon resection; ld1 - Immunization history:: Adult Immunizations up to date, Client reports having NOT received the Covid vaccine. - Social history:: Smoking status: Patient denies any tobacco usage or history of. Patient/guardian denies using alcohol. Screenin:02 Abuse screen: Denies threats or abuse. Nutritional screening: No deficits noted. st1 Tuberculosis screening: No symptoms or risk factors identified. Fall Risk None identified. No fall in past 12 months (0 pts). No secondary diagnosis (0 pts). IV access (20 points). Ambulatory Aid- None/Bed Rest/Nurse Assist (0 pts). Gait- Normal/Bed Rest/Wheelchair (0 pts) Mental Status- Oriented to own ability (0 pts). Total Matta Fall Scale indicates No Risk (0-24 pts). Assessment: 22:59 Reassessment: Please see triage note. General: Appears in no apparent distress. st1 comfortable, Behavior is calm, cooperative. Cardiovascular: No deficits noted. Respiratory: No deficits noted. : No deficits noted. Musculoskeletal: No deficits noted. 05/17 00:42 GI: Bowel sounds present X [address] st1 00:43 GI: Abd is soft and non tender. st1 Vital Signs: 05/16 21:17 BP 132 / 94; Pulse 80; Resp 18; Temp 98.2(TE); Pulse Ox 98% on R/A; Weight 94.35 kg; ld1 Height 5 ft. 10 in. (177.80 cm); Pain 2/10; 23:03 BP 123 / 76; Pulse 75; Resp 16; Pulse Ox 100% on R/A; Pain 0/10; st1 05/17 00:43 BP 127 / 82; Pulse 67; Resp 16; Pulse Ox 100% on R/A; st1 04:28 BP 119 / 84; Pulse 74; Resp 16; Pulse Ox 98% on R/A; st1 05:32 BP 126 / 71; Pulse 60; Resp 16; Pulse Ox 100% on R/A; st1 05/16 21:17 Body Mass Index 29.85 (94.35 kg, 177.80 cm) 1 ED Course: 05/16 21:06 Patient arrived in ED. es 21:07 Baldo Breen MD is Private Physician. es 21:12 Declan Helms DO is Attending Physician. ms3 21:18 Triage completed. ld1 21:18 Arm band placed on left wrist. ld1 21:57 Initial lab(s) drawn, by me, sent to lab. Inserted saline lock: 20 gauge in left mb4 antecubital area, using aseptic technique. Blood collected. 21:58 CBC with Diff Sent. mb4 21:58 CMP Sent. mb4 21:58 Lipase Sent. mb4 22:46 CT Abd/Pelvis - IV Contrast Only In Process Unspecified. EDMS 22:59 Marimar Geiger, RN is Primary Nurse. st1 23:02 Patient has correct armband on for positive identification. Bed in low position. Call st1 light in reach. Side rails up X 1. 23:02 Pulse ox on. NIBP on. Door closed. Verbal reassurance given. Head of bed elevated. st1 03 00:19 Gigi Hayden MD is Hospitalizing Provider. ms3 00:36 COVID-19/FLU A+B (Document "Date of Onset" if Symptomatic) Sent. st1 00:42 No provider procedures requiring assistance completed. st1 08:36 Primary Nurse role handed off by Marimar Geiger RN bd 09:20 Ruby Donaldson, VALENTINE is Primary Nurse. jg9 09:21 Patient admitted, IV remains in place. jg9 Administered Medications: 06:51 Discontinued: NS 0.9% 1000 ml IV at 125 ml/hr continuous st1 00:32 Drug: Rocephin - (cefTRIAXone) 1 grams Route: IVPB; Infused Over: 30 mins; Site: left st1 antecubital; 00:32 Drug: Flagyl (metroNIDAZOLE) 500 mg Volume: 100 ml; Route: IVPB; Rate: 200 ml/hr; st1 Infused Over: 30 mins; Site: left antecubital; 00:32 Drug: SOLU-Medrol (methylPrednisoLONE) 125 mg Route: IVP; Site: left antecubital; st1 03:15 Drug: NS 0.9% 1000 ml Route: IV; Rate: 125 ml/hr; Site: left antecubital; st1 Outcome: 00:20 Decision to Hospitalize by Provider. ms3 00:43 Condition: stable st1 09:21 Admitted to ER Hold. Please see [facility] for further documentation. jg9 12:33 Patient left the ED. ap3 Signatures: Dispatcher MedHost EDMelani Ward Edna es Prokisch, Amanda RN RN ap3 Sydnie Remy mb4 Declan Helms DO DO ms3 Luz Leone RN RN ld1 Ruby Donaldson RN RN jg9 Marimar Geiger RN RN st1
[2021-05-17] MEDS ORDERED: METHYLPREDNISOLONE 125 MG INJ ONE (00:29)
[2021-05-17] MEDS ORDERED: METRONIDAZOLE 500mg IVPB 500 MG/100 ML BAG IV ONE ×2 (00:29→09:31)
[2021-05-17] MEDS ORDERED: CEFTRIAXONE 1000 MG/VIAL ONE ×2 (00:29→09:31)
--- NOTE | 2021-05-17 01:28 | P.HP ---
Certification for Inpatient Patient admitted to: Inpatient With expected LOS: >2 Midnights Patient will require the following post-hospital care: None Practitioner: I am a practitioner with admitting privileges, knowledge of patient current condition, hospital course, and medical plan of care. Services: Services provided to patient in accordance with Admission requirements found in Title 42 Section 412.3 of the Code of Federal Regulations <Jorge Luis Choudhury - Last Filed: 05/17/21 01:25> Patient History Date of Service: 05/17/21 Reason for admission: Small bowel obstruction History of Present Illness: 55-year-old male with history of Crohn's disease presents emergency department for 1 day of abdominal pain, vomiting. Patient ports 2 episodes of vomiting over the course of the day today last bowel movement was this morning and normal for him has not had any gas today since then. Patient was evaluated here in the emergency department his labs were significant for mild leukocytosis CT showed small bowel obstruction. Patient is on Humira for his Crohn's biweekly since 2003 he reports his Crohn's is well controlled has had 2 previous bowel tract obstructions in the past. Patient does have history of hernia repair and colon resections. - Past Medical/Surgical History Diabetic: No -: Crohn's disease -: Hepatitis -: HTN -: Bowel obstructions -: COLON RESECTION(2003) -: COLONOSCOPY(2019) -: OPEN CHOLECYSTECTOMY Psychosocial/ Personal History: PCP is Dr. Breen - Social History Alcohol use: Yes CD- Drugs: No Caffeine use: No Place of Residence: Home <Jorge Luis Choudhury - Last Filed: 05/17/21 01:25> Date of Service: 05/17/21 <Gigi Hayden - Last Filed: 05/17/21 16:24> Allergies ciprofloxacin [From Cipro] Allergy (Verified 09/02/19 02:44) Itching Home Medications: Adalimumab [Humira(Cf) Pen] 40 mg IM SEECOM 09/02/19 Valsartan 1 tab PO DAILY 01/01/21 Review of Systems 10-point ROS is otherwise unremarkable Gastrointestinal: Nausea, Vomiting, Abdominal Pain, No Distention <Jorge Luis Choudhury - Last Filed: 05/17/21 01:25> Physical Examination - Physical Exam General: Alert, In no apparent distress, Oriented x3 HEENT: Atraumatic, PERRLA, Mucous membr. moist/pink, EOMI, Sclerae nonicteric Neck: Supple, 2+ carotid pulse no bruit, No LAD, Without JVD or thyroid abnormality Respiratory: Clear to auscultation bilaterally, Normal air movement Cardiovascular: Regular rate/rhythm, Normal S1 S2 Capillary refill: <2 Seconds Gastrointestinal: Normal bowel sounds, Tenderness (Mild generalized abdominal tenderness) Musculoskeletal: No tenderness Integumentary: No rashes Neurological: Normal speech, Normal strength at 5/5 x4 extr, Normal tone, Normal affect Lymphatics: No axilla or inguinal lymphadenopathy - Studies Laboratory Data (last 24 hrs) 05/16/21 21:55: Sodium 138, Potassium 3.8, BUN 12, Creatinine 1.05, Glucose 101, Total Bilirubin 0.5, AST 21, ALT 32, Alkaline Phosphatase 68, Lipase 120 05/16/21 21:55: WBC 11.10 H, Hgb 13.9, Hct 41.8, Plt Count 244 <Jorge Luis Choudhury - Last Filed: 05/17/21 01:25> - Studies Laboratory Data (last 24 hrs) 05/16/21 21:55: Sodium 138, Potassium 3.8, BUN 12, Creatinine 1.05, Glucose 101, Total Bilirubin 0.5, AST 21, ALT 32, Alkaline Phosphatase 68, Lipase 120 05/16/21 21:55: WBC 11.10 H, Hgb 13.9, Hct 41.8, Plt Count 244 <Gigi Hayden - Last Filed: 05/17/21 16:24> Assessment and Plan - Plan Assessment: Small bowel obstruction complicated with history of Crohn's Hypertension Plan: Small bowel obstruction complicated with history of Crohn's: General surgery consulted, n.p.o., IVF, IV antibiotics, IV steroids. Encourage ambulation. Appreciate further input from general surgery. Hypertension: N.p.o. at this time will provide medication as needed for blood pressure. DVT PPX: Lovenox Code status: Full Discharge Plan: Home Plan to discharge in: 72 Hours - Advance Directives Does patient have a Living Will: No Does patient have a Durable POA for Healthcare: No - Code Status/Comfort Care Code Status Assessed: Yes (Full code) Critical Care: No Time Spent Managing Pts Care (In Minutes): 55 <Jorge Luis Choudhury - Last Filed: 05/17/21 01:25> - Plan Seen and examined on rounds this morning. Mostly unchanged. slight abdominal discomfort, no nausea. no flatus yet. otherwise appears comfortable at rest agree with plan as noted above. bowel rest, serial abd exams. general surgery consulted <Gigi Hayden - Last Filed: 05/17/21 16:24>
[2021-05-17 01:34] LABS: SARS-COV-2 RT PCR NEGATIVE (NEGATIVE)
[2021-05-17] MEDS ORDERED: NA CHLORIDE 0.9% 1,000 ML ONE (03:14)
[2021-05-17] MEDS: D5 0.45 NS 1,000 ML IV SCH ×2 (06:01→17:43)
[2021-05-17] MEDS ORDERED: MORPHINE 2 MG/ML SYR IV PRN (06:01)
[2021-05-17] MEDS ORDERED: ONDANSETRON 4 MG/2 ML VIAL IV PRN (06:01)
[2021-05-17 06:42] VITALS: BMI 29.7
[2021-05-17] MEDS ORDERED: D5 0.45 NS 1,000 ML IV ONE (06:54)
[2021-05-17] MEDS: ENOXAPARIN 40 MG/0.4 ML SQ SCH (09:00)
[2021-05-17] MEDS: METRONIDAZOLE 500mg IVPB 500 MG/100 ML BAG IV SCH ×2 (09:00→17:47)
[2021-05-17] MEDS: CEFTRIAXONE 1,000 MG in NA CHLORIDE 0.9% 50 ML IVPB SCH (09:00)
[2021-05-17] MEDS: METHYLPREDNISOLONE 40 MG INJ IV SCH ×2 (09:00→17:48)
[2021-05-17] MEDS ORDERED: ENOXAPARIN 80 MG/0.8 ML SQ ONE (09:31)
[2021-05-17] MEDS ORDERED: NA CHLORIDE 0.9% 0 ML IV ONE (09:31)
[2021-05-17] MEDS ORDERED: METHYLPREDNISOLONE 40 MG INJ ONE (09:31)
[2021-05-17] MEDS ORDERED: NA CHLORIDE 0.9% 50 ML ONE (09:33)
[2021-05-17 12:50] VITALS: O2SAT 100
--- NOTE | 2021-05-17 13:42 | RAD REPORT ---
EXAM DESCRIPTION: CT - Abdomen Pelvis W Contrast - 05/17/2021 4:34 am ADDENDUM #1 THIS REPORT CONTAINS FINDINGS THAT MAY BE CRITICAL TO PATIENT CARE: The findings were verbally discu ssed via telephone conference with Dr. Reynaldo Serrato by Dr. Kelly Valero on 05/16/2021 11:33 PM CDT . The results were acknowledged and understood. Electronically signed by: Kelly Valero MD 05/16/2021 11:33 PM CDT End of Addendum EXAM DESCRIPTION: CT Abdomen Pelvis W Contrast CLINICAL HISTORY: 55 years Male ABD PAIN TECHNIQUE: Contiguous axial images obtained through the abdomen and pelvis following intravenous con trast administration. Coronal and sagittal reformatted images provided. This CT exam was performed according to our departmental dose-optimization program, which includes on e or more of the following dose reduction techniques: automated exposure control, adjustment of the m A and/or kV according to patient size, and/or use of iterative reconstruction technique. COMPARISON: 01/01/2021 FINDINGS: Postsurgical changes noted in the upper abdomen. Prior cholecystectomy. There is an acute mid small bowel obstruction with the transition point deep to the umbilicus. Severa l loops of obstructed small bowel appear diffusely thickened. Bowel loops measure up to 4.4 cm in nichole iber. No pneumatosis, free intraperitoneal air, or abscess. Trace free fluid. The distal small bowel is collapsed. The appendix and colon demonstrate no acute findings. Minimal mesenteric panniculitis without lymphadenopathy. Minimal right basilar atelectasis. No biliary dilatation. The liver, pancreas spleen, adrenal glands, and kidneys are normal. Again seen is nodular enlargement of the prostate. The urinary bladder is collapsed. No abdominal aortic aneurysm or dissection. No acute osseous abnormality. IMPRESSION: Acute mid small bowel obstruction with the transition point deep to the umbilicus. Sever al loops of obstructed small bowel appear diffusely thickened. Bowel loops measure up to 4.4 cm in ca liber. No pneumatosis, free intraperitoneal air, or abscess. Minimal mesenteric panniculitis. Nodular enlargement of the prostate. Electronically signed by: Kelly Valero MD 05/16/2021 11:29 PM CDT Due to temporary technical issues with the PACS/Fluency reporting system, reports are being signed by the in house radiologist without review as a courtesy to ensure prompt reporting. The interpreting r adiologist is fully responsible for the content of the report.
[2021-05-17] MEDS ORDERED: MINERAL OIL 30 ML UCUP PO ONE (14:13)
--- NOTE | 2021-05-17 15:08 | P.CNS ---
Date of Consult: 05/17/21 PC: This 55-year-old male presented to emergency room with severe cramping abdominal pain for diagnosis and treatment. HPC: Parent apparently had been out on the weekend, and some bulge from. Today noticed that he was having severe cramping abdominal pain. Has a history of Crohn's disease, and thought he was having a flareup of his intermittent bowel obstructions and came to the emergency room early for evaluation and treatment. PSHx: History of Crohn's disease, previous partial bowel obstruction PMHx: Inflammatory bowel disease Social Hx: Allergic to Cipro Sys R: No cough, wheeze, shortness of breath. No chest pain or palpitations. Denies any urinary complaints has been doing well for the last couple of months. Has a follow-up with his machine chain maker, Dr. Jaya Arroyo, on Monday O/E: Awake alert vital signs are stable actually looks very well normal demeanor HEENT: Negative Chest: Chest movement equal bilaterally Abd: Negative [place]: Intact Data: CT scan shows partial bowel obstruction Impression: The patient came in with a diagnosis and history consistent with partial bowel obstruction. Since he has been in the hospital he says also that his pain has just gone away completely he feels much better, has passed some gas per rectum no bowel movement yet but feels that the crisis has passed. Plan: Observation of patient, may be DC'd when comfortable. He has a follow-up appointment with his own machine chain maker on Monday.
[2021-05-17] MEDS ORDERED: INFLUENZA VACCINE (for 6+ mo) 0.5 ML DOSE IMVAC ONE (17:00)
[2021-05-18] MEDS: METHYLPREDNISOLONE 40 MG INJ IV SCH ×2 (00:34→09:38)
[2021-05-18] MEDS: METRONIDAZOLE 500mg IVPB 500 MG/100 ML BAG IV SCH ×2 (00:35→09:37)
[2021-05-18 03:54] LABS: Absolute Lymphocytes (CBC) 2.1 K/uL (0.7-4.9); Hematocrit 38.9 % (39.6-49.0); Lymphocytes % 15.7 % (15.3-44.8); MPV 8.5 fL (7.6-11.3); RBC Red Blood Cell Count 4.49 M/uL (4.33-5.43)
[2021-05-18 04:18] LABS: Albumin 3.3 g/dL (3.4-5.0); Bilirubin Total 0.4 mg/dL (0.2-1.0); Potassium 4.6 mmol/L (3.5-5.1); Protein, Total 7.2 g/dL (6.4-8.2)
[2021-05-18] MEDS: D5 0.45 NS 1,000 ML IV SCH ×2 (06:42→12:01)
[2021-05-18] MEDS: ENOXAPARIN 40 MG/0.4 ML SQ SCH (09:38)
[2021-05-18] MEDS: CEFTRIAXONE 1,000 MG in NA CHLORIDE 0.9% 50 ML IVPB SCH (09:38)
[2021-05-18 12:44] VITALS: BP 134/81; TEMP 98.5
--- NOTE | 2021-05-18 15:12 | P.DS ---
Admission Date: 05/17/21 Discharge Date: 05/18/21 Disposition: ROUTINE DISCHARGE Discharge Condition: FAIR Reason for Admission: Small bowel obstruction - Problems (1) Crohn's disease with intestinal obstruction Status: Acute Brief History of Present Illness: 55-year-old male with history of Crohn's disease presents emergency department for 1 day of abdominal pain, vomiting. Patient reported 2 episodes of vomiting. He has a history of bowel obstruction in the past. Patient was evaluated here in the emergency department and his labs were significant for mild leukocytosis, CT showed small bowel obstruction. Patient is on Humira for his Crohn's biweekly since 2003 he reports his Crohn's is well controlled. Patient does have history of hernia repair and colon resections. He was admitted for further management. Hospital Course: Patient admitted to the medical floor and started on IV steroid and IV antibiotics. He was seen and evaluated by general surgeryDr. Whittaker who recommended conservative management. His symptoms resolved, the vomiting resolved, patient started on liquid diet and advance to soft diet which he tolerated. He also reported having flatus and a bowel movement. Bowel obstruction is resolved and patient deemed stable for discharge per Dr. Whittaker. Vital Signs/Physical Exam: Temp Pulse Resp BP Pulse Ox 98.5 F 79 18 134/81 97 05/18/21 12:00 05/18/21 12:00 05/18/21 12:00 05/18/21 12:00 05/18/21 12:00 General: Alert, In no apparent distress, Oriented x3 HEENT: Mucous membr. moist/pink Neck: JVD not distended Respiratory: Clear to auscultation bilaterally, Normal air movement Cardiovascular: No edema, Regular rate/rhythm, Normal S1 S2 Gastrointestinal: Normal bowel sounds, Soft and benign, Non-distended, No tenderness Musculoskeletal: No swelling, No tenderness Integumentary: No rashes, No cyanosis Neurological: Normal strength at 5/5 x4 extr Laboratory Data at Discharge: WBC 13.60 K/uL (4.3-10.9) H D 05/18/21 03:07 Hgb 13.2 g/dL (13.6-17.9) L 05/18/21 03:07 Hct 38.9 % (39.6-49.0) L 05/18/21 03:07 Plt Count 244 K/uL (152-406) 05/18/21 03:07 Sodium 139 mmol/L (136-145) 05/18/21 03:07 Potassium 4.6 mmol/L (3.5-5.1) 05/18/21 03:07 BUN 13 mg/dL (7-18) 05/18/21 03:07 Creatinine 0.98 mg/dL (0.55-1.3) 05/18/21 03:07 Glucose 141 mg/dL (74-106) H 05/18/21 03:07 Total Bilirubin 0.4 mg/dL (0.2-1.0) 05/18/21 03:07 AST 15 U/L (15-37) 05/18/21 03:07 ALT 29 U/L (12-78) 05/18/21 03:07 Alkaline Phosphatase 62 U/L (45-117) 05/18/21 03:07 Lipase 120 U/L (73-393) 05/16/21 21:55 Home Medications: Adalimumab [Humira(Cf) Pen] 40 mg IM SEECOM 09/02/19 Valsartan 1 tab PO DAILY 01/01/21 Physician Discharge Instructions: PROBLEM: Bowel Obstruction, Crohns Disease GOAL: Clear understanding of disease process INSTRUCTIONS: Please follow up with primary care physician in 1-2 weeks for follow up. Follow up with you compliance vice president this week or next week. If problem becomes worse please come to the ER. For and questions regarding your stay call [phone]. Diet: AHA Activity: as tolerated IMMUNIZATION Influenza Vaccine Indicated: Yes Influenza Vaccine Given: No Date Given: Pneumonia Vaccine Indicated: No Pneumonia Vaccine Given: Date Given: Diet: AHA Activity: Ad moises Followup: Baldo Breen MD [Primary Care Provider] - Time spent managing pt's care (in minutes): 33
== END 2021-05-18 15:47 | disposition home or self-care (01) | DRG 387 ==
LOC: ER 21:02 → ERHOLD 05-17 01:21 → 4TH 05-17 12:22
PROVIDERS: ADMIT Hospitalist; ATTEND Internal Medicine
DX: K50.012 Crohn's disease of small intestine with intestinal obstruction (principal); I10 Essential (primary) hypertension; K21.9 Gastro-esophageal reflux disease without esophagitis; D72.829 Elevated white blood cell count, unspecified; Z88.1 Allergy status to other antibiotic agents; Z90.49 Acquired absence of other specified parts of digestive tract; Z79.899 Other long term (current) drug therapy; Z20.822 Contact with and (suspected) exposure to COVID-19
CPT/HCPCS: 0240U; 36415; 74177; 80053; 81003; 81015; 83690; 85025; 96374; 96375; 99285; J1650; J2920; J2930; J7030; J7799; Q9967

== ENCOUNTER 2021-11-20 16:14 | Inpatient (IN) | payer BC ==
--- OUTSIDE RECORDS SUMMARY | 2021-11-20 16:19 | XMS REPORT | Continuity of Care Document ---
:1965 Author Organization [facility] [place] t Address [address] [place] [place] [address] Care Team Providers Name Role Phone Asked, No Pcp Primary Care Physician Unavailable DELVIN SCOTT Attending Clinician Unavailable Michelle Guillen RN Attending Clinician Unavailable ELDON VAZQUEZ Attending Clinician Unavailable Ebrahisammy DUCO POLISHEREldon Horn Attending Clinician Unknown, Attending Attending Clinician Unavailable [id number] Attending Clinician Unavailable MARCUS ACE CHEM Attending Clinician Unavailable DAVID NELSON Attending Clinician Unavailable David Freed Attending Clinician MICHEAL JIMENEZ Attending Clinician Unavailable Marcus Ace Chem Attending Clinician Unavailable Delvin Scott MD Attending Clinician Provider, [facility] Attending Clinician Unavailable Wen Moncada Attending Clinician WEN GALICIA Attending Clinician Unavailable Lab, Adc Fam Pob I Attending Clinician Unavailable Maritza Carballo Attending Clinician Doctor Unassigned, [place] Attending Clinician Unavailable Jaya Arroyo Attending Clinician Jaya Arroyo Admitting Clinician Payers Payer Name Policy Type Policy Number Effective Date Expiration Date S ource OUT OF STATE [id number] BCBS - PPO - BCBS HMO/QPOS/SELECT [id number] 2000 00:00:00 - AETNA [facility] 2 [id number] 2020 00:00:00 Problems Condition Condition Condition Status Onset Resolution Last Treating Co mments Source Name Details Category Date Date Treatment Clinician Date Elevated Elevated Disease Active 2020-02 [facility] prostate prostate -17 [facility] specific specific 00:00: of antigen antigen 00 Medicin (PSA) (PSA) e External External Disease Active 2015-02 [facility]o di hemorrhoid hemorrhoid [facility] Hosp[facility] 00 l Crohn's Crohn's Disease Active 2014-[address] [facility] [address] [facility] Gallstones Gallstones Disease Active 2014-[address] [facility] Crohn's Crohn's Disease Active Univers disease disease 03-14 ity of 00:00: [place] [address] Medical Branch Hemorrhoid Hemorrhoi Problem Active 2019-10-27 Memoria s ds 04:01:04 l (disorder) (disorder) Joshua sellers Active Problem 10/27/2019 [facility] Osteopenia Osteopeni Problem Active 2019-10-27 Memoria (disorder) a 04:01:04 l (disorder) Luis M caraballo Active Problem 10/27/2019 [facility] No known No known Disease Unive rs active active ity of problems problems [facility] History of Past Illness Condition Condition Condition Status Onset Resolution Last Treating Co mments Source Name Details Category Date Date Treatment Clinician Date Crohn's Crohn's Problem 2019-10-27 2019-10-27 Memoria disease of disease of 10-24 04:01:04 04:01:04 l both small both small 17:00: He rmann and large and large 00 intestine intestine without without complicati complicati ons ons 10/25/2019 10/27/2019 [facility] Second Second Problem 2019-10-27 2019-10-27 Memoria degree degree 10-24 04:01:04 04:01:04 l hemorrhoid hemorrhoid 12:27: He rmann s s 00 10/25/2019 10/27/2019 [facility] Diverticul Diverticu Problem 2019-10-27 2019-10-27 Memoria osis of losis of 10-24 04:01:04 04:01:04 l large large 12:27: Teja intestine intestine 00 without without perforatio perforatio n or n or abscess abscess with with bleeding bleeding 10/25/2019 10/27/2019 [facility] Allergies, Adverse Reactions, Alerts Allergy Allergy Status Severity Reaction(s) Onset Inactive Treating Comm ents Source Name Type Date Date Clinician Ciproflo Propensi Active 2015-02 Method i xacin ty to 03-06 st adverse 00:00: Hospita reaction 00 l s to drug Ciproflo Drug Active Rash 2014-[address] [facility] xacin Allergy 03-18 [facility]: [address] Ciproflo Propensi Active Rash Wendi xacin ty to 05-17 Seybold Hydrochl adverse 00:00: oride reaction 00 s Ciproflo Drug Active Unknown - Unive rs xacin Allergy See comments 05-17 ity of 00:00: [address] Branch CIPROFLO DRUG Active Low Rash [facility] XACIN INGREDI 05-17 ity of 00:00: [address] Branch Ciproflo Propensi Active [facility] xacin ty to 05-17 [place] adverse 00:00: of reaction 00 Medicin s to e drug NO KNOWN Drug Active Univers ALLERGIE Class ity of S [facility] Cipro Cipro Active Memoria l Teja Social History Social Habit Start Date Stop Date Quantity Comments Source History SDOH Wendi hemphill Alcohol Binge History SDOH Wendi hemphill Alcohol Frequency History SDOH Wendi hemphill Alcohol Std Drinks Exposure to 2021-07-29 2021-08-08 Not sure [facility]-CoV-2 00:00:00 11:25:00 [facility] (event) [place] Alcohol Comment 2020-11-26 2020-11-26 Social Wendi green 00:00:00 00:00:00 Alcohol intake 2015-01-19 2015-01-19 [facility] of [facility] (finding) Tobacco use and 2015-01-16 2015-01-[address] Stephanie kes exposure 00:00:00 00:00:00 Medical Center Sex [birth year] At [birth year] JEYSON Ward 00:00:00 00:00:00 Medical Center Smoking Status Start Date Stop Date Source Unknown if ever smoked [facility] Social History [facility] Medications Ordered Filled Start Stop Current Ordering Indication Dosage Frequency Signature Comments Components Source Medication Medication Date Date Medication? Clinician (SIG) Name Name alfuzosin Yes TAKE 1 Univer s 10 mg 24 hr 4-18 TABLET BY ity of tablet 00:00: MOUTH [place] 00 DAILY Medical (WITH MAIN Branch MEAL). alfuzosin Yes TAKE 1 Univer s 10 mg 24 hr 4-18 TABLET BY ity of tablet 00:00: MOUTH [place] 00 DAILY Medical (WITH MAIN Branch MEAL). benzonatate 2020-02- No [id number] 200mg Take 1 Univers 200 mg 04-03 12-16 capsule by ity of capsule 00:00: 05:59 mouth 3 [place] 00 :00 (three) Medical times Branch daily as needed for Cough for up to 10 days. gentamicin 2020-02- No [id number] 160mg [facility] (GARAMYCIN) 03-15 College 40 mg/mL 21:00: 20:56 of injection 00 :00 Medicin 160 mg e gentamicin 2020-02- No [id number] 160mg 160 mg, [facility] (GARAMYCIN) 03-15 Intramuscu C ollege 40 mg/mL 21:00: 20:56 lar, ONCE, of injection 00 :00 1 dose, On Medi ramandeep 160 mg Wed e 01/13/21 at 1500 sulfamethox 2020-02 Yes 1{tbl} Take 1 Ba ylor azole-trime 0-13 Tablet by Col lege thoprim 00:00: mouth two of (BACTRIM 00 times Medicin DS) 800-160 daily. e MG per Start tablet taking on 01/10 Rectal 2020-02 Yes Use as [facility] Cleansers 0-13 directed Colleg e (FLEET 00:00: from box of NATURALS 00 instructio Medic in CLEANSING ns 3 hours e ENEMA) ENEM prior to procedure Adalimumab Yes 40mg Inject 40 Ke lsey 40 MG/0.8ML 9-30 mg into Seybo ld subcutaneou 06:00: the skin s Prefilled 09 every 14 Syringe tadalafil 2020-0 Yes [id number] 5mg Take 1 Ba ylor (CIALIS) 5 7-07 Tablet by Raheem ege MG tablet 00:00: mouth of 00 daily. Medicin e tadalafil 2020-0 Yes [id number] Take 1 tab [facility] (CIALIS) 20 7-07 by mouth Raheem ege MG tablet 00:00: 30 minutes of 00 prior to Medicin intercours e e daily PRN DUREZOL 2020-0 Yes John 0.05 % 17 [place] ophthalmic 00:00: of emulsion 00 Medicin e DUREZOL 2020-0 Yes John 0.05 % [address] [place] [address] ophthalmic 00:00: of emulsion 00 Medicin e HUMIRA PEN 2020-0 Yes [facility] 40 MG/0.4ML 08-03 [place] PNKT 00:00: of 00 Medicin e HUMIRA PEN 2020-0 Yes [facility] 40 MG/0.4ML [address] [place] [address] PNKT 00:00: of 00 Medicin e valsartan 2020-0 Yes TAKE 1 [facility] (DIOVAN) 5-11 TABLET BY Colleg e 160 MG 00:00: MOUTH of tablet 00 EVERY DAY Medicin e valsartan 2020-0 Yes TAKE 1 John (DIOVAN) 5-11 TABLET BY Colleg e 160 MG 00:00: MOUTH of tablet 00 EVERY DAY Medicin e triamcinolo 2020-0 Yes [id number] Apply to Univers ne 4-17 area(s) 3 ity of acetonide 00:00: (three) [place] 0.1 % 00 times Medical ointment daily. Branch triamcinolo 2020-0 Yes [id number] Apply to Univers ne 4-17 area(s) 3 ity of acetonide 00:00: (three) [place] 0.1 % 00 times Medical ointment daily. Branch triamcinolo 2020-0 Yes [id number] Apply to Univers ne 4-17 area(s) 3 ity of acetonide 00:00: (three) [place] 0.1 % 00 times Medical ointment daily. Branch triamcinolo 2020-0 Yes [id number] Apply to Univers ne 4-17 area(s) 3 ity of acetonide 00:00: (three) [place] 0.1 % 00 times Medical ointment daily. Branch Valsartan 2020-0 Yes 160mg Take 160 Eliezer sey 160 MG oral 4-02 mg by Seybold Tablet 00:00: mouth 00 every morning valsartan 202-0 Yes 160mg Take 160 Uni vers 160 mg 4-02 mg by ity of tablet 00:00: mouth [place] 00 every Medical morning. Branch valsartan 2020-0 Yes 160mg Take 160 Uni vers 160 mg 4-02 mg by ity of tablet 00:00: mouth [place] 00 every Medical morning. Branch valsartan 2020-0 Yes 160mg Take 160 Uni vers 160 mg 4-02 mg by ity of tablet 00:00: mouth [place] 00 every Medical morning. Branch valsartan 2020-0 Yes 160mg Take 160 Uni vers 160 mg 4-02 mg by ity of tablet 00:00: mouth [place] 00 every Medical morning. Branch LR 1,000 mL 2020-0 No 1,000 mL, M emoria 10-24 IV, 30 l 11:35: mL/hr, Teja 00 start date 10/25/19 6:35:00 CDT, 2.13, m2 Lidocaine 2020-0 No 0.2 mL, Memor ia 2% 0.2 mL 10-24 Injection, l IV Start 11:35: Subcutaneo [facility] [[facility]] 00 us, Once PRN for other (see comment), first dose 10/25/19 6:35:00 CDT LR 1,000 mL 2020-0 No 1,000 mL, M emoria 10-24 IV, 30 l 11:35: mL/hr, Hoven 00 start date 10/25/19 6:35:00 CDT, 2.13, m2 Lidocaine 2020-0 No 0.2 mL, Memor ia 2% 0.2 mL 10-24 Injection, l IV Start 11:35: Subcutaneo [facility] 00 us, Once PRN for other (see comment), first dose 10/25/19 6:35:00 CDT propofol 2018-0 No 50 mg = 5 [place] 9-28 mL, l 13:22: Emulsion, Teja 00 IV, Once, first dose 11/24/17 8:22:00 CDT, stop date 11/24/17 8:22:00 CDT propofol 2018-0 No 50 mg = 5 [place] 9-28 mL, l 13:22: Emulsion, Hoven 00 IV, Once, first dose 11/24/17 8:22:00 CDT, stop date 11/24/17 8:22:00 CDT propofol 2018-0 No 50 mg = 5 [place] 9-28 mL, l 13:19: Emulsion, Teja 00 IV, Once, first dose 11/24/17 8:19:00 CDT, stop date 11/24/17 8:19:00 CDT propofol 2018-0 No 50 mg = 5 [place] 9-28 mL, l 13:19: Emulsion, Hoven 00 IV, Once, first dose 11/24/17 8:19:00 CDT, stop date 11/24/17 8:19:00 CDT propofol 2018-0 No 50 mg = 5 Juan Pablo sotuh 9-28 mL, l 13:16: Emulsion, Teja 00 IV, Once, first dose 11/24/17 8:16:00 CDT, stop date 11/24/17 8:16:00 CDT propofol 2018-0 No 50 mg = 5 [place] 9-28 mL, l 13:16: Emulsion, Hoven 00 IV, Once, first dose 11/24/17 8:16:00 CDT, stop date 11/24/17 8:16:00 CDT lidocaine 2018-0 No 3 mL, Memoria 9-28 Injection, l 13:13: IV, Once, Hoven 00 first dose 11/24/17 8:13:00 CDT, stop date 11/24/17 8:13:00 CDT propofol 2018-0 No 150 mg = Memor ia 9-28 15 mL, l 13:13: Emulsion, Hoven 00 IV, Once, first dose 11/24/17 8:13:00 CDT, stop date 11/24/17 8:13:00 CDT lidocaine 2018-0 No 3 mL, Memoria 9-28 Injection, l 13:13: IV, Once, Teja 00 first dose 11/24/17 8:13:00 CDT, stop date 11/24/17 8:13:00 CDT propofol 2018-0 No 150 mg = Memor ia 9-28 15 mL, l 13:13: Emulsion, Teja 00 IV, Once, first dose 11/24/17 8:13:00 CDT, stop date 11/24/17 8:13:00 CDT Lidocaine Yes 0.2 mL, Memor ia 2% 0.2 mL 11-24 Injection, l IV Start 12:07: Subcutaneo [facility] [[facility]] 00 us, Once PRN for other (see comment), first dose 11/24/17 7:07:00 CDT LR 1,000 mL No 1,000 mL, M emoria 11-24 IV, 30 l 12:07: mL/hr, Hoven start date 11/24/17 7:07:00 CDT Lidocaine Yes 0.2 mL, Memor ia 2% 0.2 mL 11-24 Injection, l IV Start 12:07: Subcutaneo [facility] [[facility]] 00 us, Once PRN for other (see comment), first dose 11/24/17 7:07:00 CDT LR 1,000 mL No 1,000 mL, Sammy emoria 11-24 IV, 30 l 12:07: mL/hr, Teja start date 11/24/17 7:07:00 CDT [facility] 2015-02 No Simon 800 mL, Memoria Medication - Corin Soln-IV, l 16:21: IV, Once, first dose 02/05/16 10:21:00 HOP SORTER, stop date 02/05/16 10:21:00 [facility] Simon 800 mL, Memoria Medication - Corin Soln-IV, l 16:21: IV, Once, first dose 02/05/16 10:21:00 HOP SORTER, stop date 02/05/16 10:21:00 HOP SORTER propofol 2015-02 No Simon 60 mg = 6 Mem oria 2- Corin mL, l 13:21: Emulsion, Teja 00 IV, Once, first dose 02/05/16 7:21:00 HOP SORTER, stop date 02/05/16 7:21:00 HOP SORTER propofol 2015-02 No Simon 60 mg = 6 Mem oria 2- Corin mL, l 13:21: Emulsion, Hoven 00 IV, Once, first dose 02/05/16 7:21:00 HOP SORTER, stop date 02/05/16 7:21:00 HOP SORTER propofol 2015-02 No Simon 60 mg = 6 Mem oria 2-09 Corin mL, l 13:15: Emulsion, Teja 00 IV, Once, first dose 02/05/16 7:15:00 HOP SORTER, stop date 02/05/16 7:15:00 HOP SORTER propofol 2015-02 No Simon 60 mg = 6 Mem oria 2-09 Corin mL, l 13:15: Emulsion, Teja 00 IV, Once, first dose 02/05/16 7:15:00 HOP SORTER, stop date 02/05/16 7:15:00 HOP SORTER Humira 2016 Yes mg, Memoria 2-09 Subcutaneo l 13:13: us, q2wk, Hoven 00 0 Refill(s), CROHN'S DISEASE Humira 2016 Yes mg, Memoria 2-09 Subcutaneo l 13:13: us, q2wk, Hoven 00 0 Refill(s) Humira 2016 Yes mg, Memoria 2-09 Subcutaneo l 13:13: us, q2wk, Hoven 00 0 Refill(s), CROHN'S DISEASE Humira 2015-02 Yes mg, Memoria 2-09 Subcutaneo l 13:13: us, q2wk, Teja 00 0 Refill(s) lidocaine 2016 No Simon 2 mL, Memori a 2- Corin Injection, l 13:11: IV, Once, Hoven 00 first dose 02/05/16 7:11:00 HOP SORTER, stop date 02/05/16 7:11:00 HOP SORTER propofol 2015-02 No Simon 180 mg = [place] 2-09 Corin 18 mL, l 13:11: Emulsion, Hoven 00 IV, Once, first dose 02/05/16 7:11:00 HOP SORTER, stop date 02/05/16 7:11:00 HOP SORTER lidocaine 2015-02 No Simon 2 mL, Memori a 2-09 Corin Injection, l 13:11: IV, Once, Hoven 00 first dose 02/05/16 7:11:00 HOP SORTER, stop date 02/05/16 7:11:00 HOP SORTER propofol 2015-02 No Simon 180 mg = [place] 2-09 Corin 18 mL, l 13:11: Emulsion, IV, Once, first dose 02/05/16 7:11:00 HOP SORTER, stop date 02/05/16 7:11:00 HOP SORTER Lidocaine 2015-02 No Homero 0.2 mL, [place] 2% 0.2 mL 04-07 Marisel TUTTLE Injection, l [facility] , Once PRN for other (see comment), first dose 02/05/16 7:08:00 HOP SORTER LR 1,000 mL 2015-02 No Homero 1,000 mL, Memoria 2 Marisel TUTTLE IV, 30 l 13:08: mL/hr, start date 02/05/16 7:08:00 HOP SORTER Lidocaine 2015-02 No Homero 0.2 mL, [place] 2% 0.2 mL 04-07 Marisel TUTTLE Injection, l IV Start [facility]:08[facility] 00 , Once PRN for other (see comment), first dose 02/05/16 7:08:00 HOP SORTER LR 1,000 mL 2015-02 No Homero 1,000 mL, Memoria 04-07 Marisel TUTTLE IV, 30 l 13:08: mL/hr, start date 02/05/16 7:08:00 HOP SORTER No known 2015-02 No No known Metho di medications 1-[address] 13:59: s [facility]osp[facility] l No known 2015-02 No No known Metho di medications 1-[address] 13:59: s [facility]ospita 51 l LR 1,000 mL 2015-02 No David 1,000 mL, Memoria 0-12 Sanchez IV, 75 l 20:45: mL/hr, start date 12/09/15 15:45:00 CDT Saline Lock 2015-02 No David 10 mL, M emoria Flush 0-12 Sanchez Soln, IV l 20:45: Push, As Indicated PRN for flush, first dose 12/09/15 15:45:00 CDT diphenhydrA 2015-02 No David 25 mg = Memoria MINE 0-12 Sanchez 0.5 mL, l 20:45: Injection, IV Push, Once PRN for itching, first dose 12/09/15 15:45:00 CDT ondansetron 2015-02 No David 8 mg = 1 Memoria 0-12 Sanchez tabs, l 20:45: Tab-Dis, Hoven 00 Oral, Once PRN for nausea/vom iting, first dose 12/09/15 15:45:00 CDT labetalol 2015-02 No David 5 mg = 1 M emoria 0-12 Sanchez mL, l 20:45: Injection, Teja 00 IV Push, As Indicated PRN for hypertensi on, first dose 12/09/15 15:45:00 CDT Dilaudid 2015-02 No David 0.5 mg = Me moria 0-12 Sanchez 0.25 mL, l 20:45: Injection, Hoven 00 IV Push, q10min PRN for pain severe (7-10), first dose 12/09/15 15:45:00 CDT Xopenex 2015-02 No David 0.63 mg = Me moria 0.63 mg/3 0-12 Sanchez 3 mL, l mL 20:45: Soln, NEB, Teja inhalation 00 Once PRN solution for wheezing, first dose 12/09/15 15:45:00 CDT Demerol HCl 2015-02 No David 12.5 mg = Memoria 0-12 Sanchez 0.25 mL, l 20:45: Injection, Hoven 00 IV Push, Once PRN for shivers, first dose 12/09/15 15:45:00 CDT albuterol 2015-02 No David 2.5 mg = 3 Memoria 2.5 mg/3 mL 0-12 Sanchez mL, Soln, l (0.083%) 20:45: NEB, Once Herm agustin inhalation 00 PRN for solution wheezing, first dose 12/09/15 15:45:00 CDT LR 1,000 mL 2015-02 No David 1,000 mL, Memoria 0-12 Sanchez IV, 75 l 20:45: mL/hr, Hoven 00 start date 12/09/15 15:45:00 CDT Saline [...] 3 mL, l mL 20:45: Soln, NEB, Hoven inhalation 00 Once PRN solution for wheezing, first dose 12/09/15 15:45:00 CDT Demerol HCl 2015-02 No David 12.5 mg = Memoria 0-12 Sanchez 0.25 mL, l 20:45: Injection, Hoven 00 IV Push, Once PRN for shivers, [...] 15:44:00 CDT, stop date 12/09/15 15:44:00 CDT Lactated 2015-02 No Michael IV, start M emoria Ringers 0-12 Ryan date l Injection 20:44: 12/09/15 Herm agustin 00 15:44:00 CDT, stop date 12/09/15 15:44:00 CDT ondansetron 2015-02 No David 4 mg = 2 Memoria 0-12 Sanchez mL, l 20:31: Injection, Teja 00 IV, Once, first dose 12/09/15 15:31:00 CDT, stop date 12/09/15 15:31:00 CDT ondansetron 2015-02 No David 4 mg = 2 Memoria 0-12 Sanchez mL, l 20:31: Injection, Teja 00 IV, Once, first dose 12/09/15 15:31:00 CDT, stop date 12/09/15 15:31:00 CDT metroNIDAZO 2015-02 No David 500 mg, Memoria LE 0-12 Sanchez Soln-IV, l 20:16: IV, Once, Hoven 00 first dose 12/09/15 15:16:00 CDT, stop date 12/09/15 15:16:00 CDT metroNIDAZO 2015-02 No David 500 mg, Memoria LE 0-12 Sanchez Soln-IV, l 20:16: IV, Once, Hoven 00 first dose 12/09/15 15:16:00 CDT, stop date 12/09/15 15:16:00 CDT dexamethaso 2015-02 No David 8 mg = 2 Memoria ne 0-12 Sanchez mL, l 20:13: Injection, Hoven 00 IV, Once, first dose 12/09/15 15:13:00 CDT, stop date 12/09/15 15:13:00 CDT dexamethaso 2015-02 No David 8 mg = 2 Memoria ne 0-12 Sanchez mL, l 20:13: Injection, Hoven 00 IV, Once, first dose 12/09/15 15:13:00 CDT, stop date 12/09/15 15:13:00 CDT fentaNYL 2015- No David 100 mcg = M emoria 0-12 Sanchez 2 mL, l 20:10: Injection, Hoven 00 IV, Once, first dose 10/12/16 15:10:00 CDT, stop date 12/09/15 15:10:00 CDT lidocaine 2015-02 No David 3 mL, [place] south 0-12 Sanchez Injection, l 20:10: IV, Once, Hoven 00 first dose 12/09/15 15:10:00 CDT, stop date 12/09/15 15:10:00 CDT propofol 2015-02 No David 150 mg = Me moria 0-12 Sanchez 15 mL, l 20:10: Emulsion, Hoven 00 IV, Once, first dose 12/09/15 15:10:00 CDT, stop date 12/09/15 15:10:00 CDT fentaNYL 2015- No David 100 mcg = M emoria 0-12 Sanchez 2 mL, l 20:10: Injection, Hoven 00 IV, Once, first dose 12/09/15 15:10:00 [...] 15:10:00 CDT, stop date 12/09/15 15:10:00 CDT [facility] 2015-02 No David 1,000 mL, Memor ia Medication 0-12 Sanchez Soln-IV, l 20:07: IV, Once, Teja 00 first dose 12/09/15 15:07:00 CDT, stop date 12/09/15 15:07:00 [facility] David 1,000 mL, Memor ia Medication 0-12 Sanchez Soln-IV, l 20:07: IV, Once, Hoven 00 first dose 12/09/15 15:07:00 CDT, stop date 12/09/15 15:07:00 CDT midazolam 2015- No David 1 mg = 1 M emoria 0-12 Sanchez mL, l 20:05: Injection, Hoven 00 IV, Once, first dose 12/09/15 15:05:00 CDT, stop date 12/09/15 15:05:00 CDT fentaNYL 2015-02 No David 50 mcg = 1 Memoria 0-12 Sanchez mL, l 20:05: Injection, Teja 00 IV, Once, first dose 12/09/15 15:05:00 CDT, stop date 12/09/15 15:05:00 CDT midazolam 2015-02 No David 1 mg = 1 M emoria 0-12 Sanchez mL, l 20:05: Injection, Hoven 00 IV, Once, first dose 12/09/15 15:05:00 CDT, stop date 12/09/15 15:05:00 CDT fentaNYL 2015-02 No David 50 mcg = 1 Memoria 0-12 Sanchez mL, l 20:05: Injection, Teja 00 IV, Once, first dose 12/09/15 15:05:00 CDT, stop date 12/09/15 15:05:00 CDT fentaNYL 2015-02 No David 50 mcg = 1 Memoria 0-12 Sanchez mL, l 20:01: Injection, Hoven 00 IV, Once, first dose 12/09/15 15:01:00 CDT, stop date 12/09/15 15:01:00 CDT midazolam 2015-02 No David 1 mg = 1 M emoria 0-12 Sanchez mL, l 20:01: Injection, Hoven 00 IV, Once, first dose 12/09/15 15:01:00 CDT, stop date 12/09/15 15:01:00 CDT fentaNYL 2015-02 No David 50 mcg = 1 Memoria 0-12 Sanchez mL, l 20:01: Injection, Hoven 00 IV, Once, first dose 12/09/15 15:01:00 CDT, stop date 12/09/15 15:01:00 CDT midazolam 2015-02 No David 1 mg = 1 M emoria 0-12 Sanchez mL, l 20:01: Injection, Hoven 00 IV, Once, first dose 12/09/15 15:01:00 CDT, stop date 12/09/15 15:01:00 CDT Flagyl IVPB 2015-02 No Ali 500 mg, Mem oria 0-12 Mallory Soln-IV, l 19:00: IV Teja 00 Piggyback, Once, infuse over 60 minutes, first dose 12/09/15 14:00:00 CDT, stop date 12/09/15 14:00:00 CDT, Prophylaxi s Flagyl IVPB 2015-02 No Ali 500 mg, Mem oria 0-12 Mallory Soln-IV, l 19:00: IV Teja 00 Piggyback, Once, infuse over 60 minutes, first dose 12/09/15 14:00:00 CDT, stop date 12/09/15 14:00:00 CDT, Prophylaxi s LR 1,000 mL 2015-02 No Marito K 1,000 mL, Memoria 0-12 Ovalle IV, 30 l 18:22: mL/hr, Hoven 00 start date 12/09/15 13:22:00 CDT Lidocaine 2015-02 No Marito K 0.2 mL, Mem oria 2% 0.2 mL 0-12 [place]le Injection, l IV Start 18:22: Subcutaneo [facility] 00 us, Once PRN for other (see comment), first dose 12/09/15 13:22:00 CDT LR 1,000 mL 2015-02 No Marito K 1,000 mL, Memoria 0-12 Ovalle IV, 30 l 18:22: mL/hr, Hoven 00 start date 12/09/15 13:22:00 CDT Lidocaine 2015-02 No Marito K 0.2 mL, Mem oria 2% 0.2 mL 0-12 Ovalle Injection, l IV Start 18:22: Subcutaneo Her harvey [[place]] 00 us, Once PRN for other (see comment), first dose 12/09/15 13:22:00 CDT Humira 2015-02 No 80 mg, Memoria 0-11 Subcutaneo l 14:47: us, q2wk, Hoven 00 0 Refill(s), crohns Humira 2015-02 No 80 mg, Memoria 0-11 Subcutaneo l 14:47: us, q2wk, Hoven 00 0 Refill(s), crohns Humira 2015-02 No 80 mg, Memoria 0-11 Subcutaneo l 14:47: us, q2wk, Teja 00 0 Refill(s), crohns Humira 2015-02 No 80 mg, Memoria 0-11 Subcutaneo l 14:47: us, q2wk, Hoven 00 0 Refill(s), crohns adalimumab 2014-02 Yes 40mg Q14D Inject [address] (HUMIRA) 40 1-25 mg [facility] mg/0.8 mL 14:18: subcutaneo Me dical injection 20 usly every Cent er 14 (fourteen) days. adalimumab 2014-02 Yes 40mg Q14D Inject [address] (HUMIRA) 40 1-25 mg [facility] mg/0.8 mL 14:18: subcutaneo Me dical injection 20 usly every Cent er 14 (fourteen) days. acetaminoph 2014-02 Yes 1{tbl} Take [address] en-codeine 1-25 tablet by Alpesh s (TYLENOL 00:00: mouth Medical #3) 300-30 00 every 4 Center mg per (four) tablet hours as needed for Pain for up to 15 doses. acetaminoph 2014-02 Yes 1{tbl} Take [address] en-codeine 1-25 tablet by Alpesh s (TYLENOL 00:00: mouth Medical #3) 300-30 00 every 4 Center mg per (four) tablet hours as needed for Pain for up to 15 doses. fexofenadin Yes 180mg Take 1 Tab John e (ANIBAL) 4-18 by mouth Raheem ege 180 MG 00:00: every of tablet 00 morning. Medicin e fexofenadin Yes 180mg Take 1 Tab John [...] under ity of mL 00:00: the skin. [place] injection 00 Medical Branch adalimumab 2003-02 Yes 40mg inject 40 Un lucho 40 mg/0.8 2-16 mg under ity of mL 00:00: the skin. [place] injection Medical Branch adalimumab 2003-02 Yes 40mg inject 40 Un lucho 40 mg/0.8 2-16 mg under ity of mL 00:00: the skin. [place] injection [facility] adalimumab 2003-02 Yes 40mg inject 40 Un lucho 40 mg/0.8 2-16 mg under ity of mL 00:00: the skin. [place] injection [facility] [place] Vital Signs Vital Name Observation Time Observation Value Comments Source Systolic blood 2021-08-08 16:29:00 106 mm[Hg] Univer sity of pressure [facility] Diastolic blood 2021-08-08 16:29:00 71 mm[Hg] Unive rsity of [facility] Heart rate 2021-08-08 16:29:00 73 /min [facility] Body temperature 2021-08-08 16:29:00 37.67 [place] [facility] Respiratory rate 2021-08-08 16:29:00 16 /min [facility] Body height 2021-08-08 16:29:00 177.8 cm [facility] Body weight 2021-08-08 16:29:00 95.709 kg [facility] BMI 2021-08-08 16:29:00 30.28 kg/m2 [facility] Oxygen saturation in 2021-08-08 16:29:00 96 /min [facility] Arterial blood by [facility] Pulse oximetry Branch Systolic blood 2021-01-31 17:43:00 112 mm[Hg] Univer sity of [facility] Diastolic blood 2021-01-31 17:43:00 72 mm[Hg] Unive rsity of [facility] Heart rate 2021-01-31 17:43:00 85 /min Universi ty [facility] Body temperature 2021-01-31 17:43:00 37.78 Estella [facility] Respiratory rate 2021-01-31 17:43:00 20 /min [facility] Body height 2021-01-31 17:43:00 177.8 cm [facility] Body weight 2021-01-31 17:43:00 98.113 kg [facility] BMI 2021-01-31 17:43:00 31.04 kg/m2 [facility] Oxygen saturation in 2021-01-31 17:43:00 96 /min [facility] blood by [facility] Pulse oximetry Branch Systolic blood 2021-01-13 20:46:00 112 mm[Hg] [facility] Medicine Diastolic blood 2021-01-13 20:46:00 74 mm[Hg] [facility] Medicine Heart rate 2021-01-13 20:46:00 60 /min [facility] Body temperature 2021-01-13 20:46:00 36.61 Estella [facility] Body height 2021-01-13 20:46:00 177.8 cm [facility] Body weight 2021-01-13 20:46:00 95.255 kg [facility] BMI 2021-01-13 20:46:00 30.13 kg/m2 [facility] Systolic blood 2020-11-26 11:04:00 118 mm[Hg] Wendi [...] Heart rate 2020-11-26 11:04:00 62 /min Wendi escobar Body temperature 2020-11-26 11:04:00 36.67 Estella Zahida Nicolas Respiratory rate 2020-11-26 11:04:00 18 /min Zahida Nicolas Body height 2020-11-26 11:04:00 175.3 cm Wendi escobar Body weight 2020-11-26 11:04:00 98.431 kg Wendi escobar BMI 2020-11-26 11:04:00 32.05 kg/m2 Wendi escobar Systolic blood 2020-08-25 14:20:00 148 mm[Hg] [facility] Medicine Diastolic blood 2020-08-25 14:20:00 90 mm[Hg] [facility] Medicine Heart rate 2020-08-25 14:20:00 63 /min [facility] Body temperature 2020-08-25 14:20:00 36.67 Estella [facility] Body height 2020-08-25 14:20:00 177.8 cm [facility] Body weight 2020-08-25 14:20:00 96.163 kg [facility] BMI 2020-08-25 14:20:00 30.42 kg/m2 [facility] Systolic blood 2020-06-13 13:13:00 126 mm[Hg] Univer sity of [facility] Diastolic blood 2020-06-13 13:13:00 83 mm[Hg] Unive rsity of [facility] Heart rate 2020-06-13 13:13:00 63 /min Universi ty [facility] Body temperature 2020-06-13 13:13:00 36.39 Estella Univ ersity of [facility] Respiratory rate 2020-06-13 13:13:00 18 /min [facility] Body height 2020-06-13 13:13:00 177.8 cm Universi ty [facility] Body weight 2020-06-13 13:13:00 99.247 kg Universi ty [facility] BMI 2020-06-13 13:13:00 31.39 kg/m2 [facility] in 2020-06-13 13:13:00 97 /min University of Arterial blood by [facility] Pulse oximetry Branch Systolic blood 2020-06-13 13:13:00 126 mm[Hg] Univer sity of pressure [facility] Diastolic blood 2020-06-13 13:13:00 83 mm[Hg] Unive rsity of pressure [facility] Heart rate 2020-06-13 13:13:00 63 /min Universi ty [facility] Body temperature 2020-06-13 13:13:00 36.39 Estella Univ ersity of [facility] Respiratory rate 2020-06-13 13:13:00 18 /min [facility] height 2020-06-13 13:13:00 177.8 cm Universi ty [facility] Body weight 2020-06-13 13:13:00 99.247 kg Universi ty [facility] BMI 2020-06-13 13:13:00 31.39 kg/m2 [facility] O[facility] saturation in 2020-06-13 13:13:00 97 /min University of Arterial blood by [facility] Pulse oximetry Branch Respitory Rate 2019-10-25 13:03:00 Memori al Teja Respitory Rate 2019-10-25 12:50:00 Memori al [facility]oven Systolic (mm Hg) 2019-10-25 12:50:00 Juan Pablo rial Hoven Diastolic (mm Hg) 2019-10-25 12:50:00 Mem orial Teja Respitory Rate 2019-10-25 12:40:00 Memori al Teja Systolic (mm Hg) 2019-10-25 12:40:00 Juan Pablo rial Hoven Diastolic (mm Hg) 2019-10-25 12:40:00 Mem orial Teja Temperature Oral (F) 2019-10-25 12:30:00 37 Estella [facility] Systolic (mm Hg) 2019-10-25 12:30:00 Juan Pablo rial Teja Diastolic (mm Hg) 2019-10-25 12:30:00 Mem orial Teja Temperature Oral (F) 2019-10-25 11:40:00 36.9 Estella [facility] Height 2019-10-25 11:40:00 177 cm [facility] Height 2019-10-20 22:00:00 177 cm [facility] Respitory Rate 2017-11-24 15:45:00 Memori al Teja Systolic (mm Hg) 2017-11-24 15:45:00 Juan Pablo rial Hoven Diastolic (mm Hg) 2017-11-24 15:45:00 Mem orial Hoven Systolic (mm Hg) 2017-11-24 13:40:00 Juan Pablo rial Teja Diastolic (mm Hg) 2017-11-24 13:40:00 Mem orial Teja Respitory Rate 2017-11-24 13:40:00 Memori al Teja Respitory Rate 2017-11-24 13:30:00 Memori al [facility]oven Heart Rate 2017-11-24 13:30:00 [facility] Systolic (mm Hg) 2017-11-24 13:30:00 Juan Pablo rial Teja Diastolic (mm Hg) 2017-11-24 13:30:00 Mem orial Teja Temperature Oral (F) 2017-11-24 13:20:00 36.2 Estella [facility] Heart Rate 2017-11-24 13:20:00 [facility] Temperature Oral (F) 2017-11-24 12:03:00 36.7 Estella [facility] Height 2017-11-24 12:03:00 177 cm [facility] Height 2017-11-19 19:48:00 177 cm [facility] Systolic (mm Hg) 2016-02-05 14:27:00 Juan Pablo rial Hoven Respitory Rate 2016-02-05 14:27:00 Memori al Hoven Systolic (mm Hg) 2016-02-05 13:40:00 Juan Pablo rial Teja Respitory Rate 2016-02-05 13:40:00 Memori al Teja Heart Rate 2016-02-05 13:40:00 [facility] Systolic (mm Hg) 2016-02-05 13:30:00 Juan Pablo rial Teja Heart Rate 2016-02-05 13:30:00 [facility] Respitory Rate 2016-02-05 13:30:00 Memori al [facility]oven Heart Rate 2016-02-05 13:20:00 [facility] Temperature Oral (F) 2016-02-05 13:20:00 37.1 Estella [facility] Weight 2016-02-05 13:10:00 [facility] Height 2016-02-05 13:10:00 177 cm [facility] Temperature Oral (F) 2016-02-05 13:10:00 36.5 Estella [facility] Weight 2016-01-18 22:32:00 [facility] Height 2016-01-18 22:32:00 177.80 cm [facility] Systolic (mm Hg) 2015-12-09 21:56:00 Juan Pablo rial Teja Respitory Rate 2015-12-09 21:56:00 Memori al Teja Heart Rate 2015-12-09 21:20:00 [facility] Systolic (mm Hg) 2015-12-09 21:20:00 Juan Pablo rial Hoven Respitory Rate 2015-12-09 21:20:00 Memori al [facility]oven Respitory Rate 2015-12-09 21:10:00 Memori al Teja Systolic (mm Hg) 2015-12-09 21:10:00 Juan Pablo rial [facility]oven Heart Rate 2015-12-09 21:10:00 [facility] Heart Rate 2015-12-09 21:00:00 [facility] Temperature Oral (F) 2015-12-09 20:40:00 36.7 Estella [facility] Height 2015-12-09 18:26:00 177.80 cm [facility] Weight 2015-12-09 18:26:00 [facility] Temperature Oral (F) 2015-12-09 18:26:00 36.9 Estella [facility] Height 2015-12-08 14:35:00 178 cm [facility] Weight 2015-12-08 14:35:00 [facility] Procedures Procedure Date / Time Performing Clinician Source Performed POCT MOLECULAR FLU 2021-08-08 16:37:00 Unknown, [facility] POCT RAPID FLU A AND B 2021-01-31 00:00:00 [facility] [place], operated by [facility] POCT URINALYSIS 2021-01-13 00:00:00 Micheal Jimenez [facility] deandre of [facility] Medicine COLONOSCOPY FLEXIBLE; 2019-10-25 12:10:00 Memori al [facility] DIAGNOSTIC; INCL. COLLECTION OF SPECIMENS 35393 (N/A)<sup>1</sup> COLONOSCOPY FLEXIBLE; 2017-11-24 13:15:00 Memori al Hoven DIAGNOSTIC; INCL. COLLECTION OF SPECIMENS 89047 (Other)<sup>1</sup> EXCISION FULL THICKNESS 2015-12-09 20:26:00 Linwood Tejada TUMOR BY PROCTOTOMY 66160 (Other)<sup>3</sup> Cholecystectomy<sup>1</ 2014-02-27 00:00:00 Juan Pablo Lezama sup> incisional hernia 2008-02[facility]28 [facility]00 [facility] resction<sup>2</sup> Colonoscopy [facility] Plan of Care Planned Activity Planned Date Details Comments Source Future Scheduled 2021-10-27 COVID-19 VACCINE (#1) [facility] 12:44:54 [code = COVID-19 VACCINE Hos pital (#1)] Future Scheduled 2021-10-27 COLONOSCOPY SCREENING [facility] 12:44:54 [code = COLONOSCOPY Hospital SCREENING] Future Scheduled 2021-10-27 SHINGLES VACCINES (1 of [facility] 12:44:54 2) [code = SHINGLES Hospital VACCINES (1 of 2)] Future Scheduled 2021-10-27 INFLUENZA VACCINE [code = [facility] 12:44:54 INFLUENZA VACCINE] Hospital Future Scheduled 2021-10-27 HEPATITIS B VACCINES (1 [facility] 12:44:54 of 3 - 3-dose series) Hospit al [code = HEPATITIS B VACCINES (1 of 3 - 3-dose series)] Future Scheduled 2021-03-30 COLONOSCOPY SCREENING [facility] 13:16:02 [code = COLONOSCOPY Hospital SCREENING] Future Scheduled 2021-03-30 SHINGLES VACCINES (#1) [facility] Test 13:16:02 [code = SHINGLES VACCINES Ho spital (#1)] Future Scheduled 2021-03-30 INFLUENZA VACCINE [code = [facility] Test 13:16:02 INFLUENZA VACCINE] Hospital Future Scheduled 2021-03-30 COVID-19 VACCINE (1) [facility] 13:16:02 [code = COVID-19 VACCINE Hos pital (1)] Future Scheduled 2021-01-13 Screening for malignant [facility] Test 16:15:36 neoplasm of colon Medicine (procedure) [code = 023755898] Future Scheduled 2021-01-13 COVID-19 Vaccine (1) [employer] of Test 16:15:36 [code = COVID-19 Vaccine Med icine (1)] Future Scheduled 2021-01-13 TETANUS SHOT (ADULT) [facility] of Test 16:15:36 [code = TETANUS SHOT Medicin e (ADULT)] Future Scheduled 2021-01-13 BMI FOLLOW UP PLAN [code [facility] of Test 16:15:36 = BMI FOLLOW UP PLAN] Medici ne Future Scheduled 2021-01-13 Hepatitis C screening Ba [facility] of Test 16:15:36 (procedure) [code = Medicine 857784060] Future Scheduled 2021-01-13 Human immunodeficiency B [facility] of Test 16:15:36 virus screening Medicine (procedure) [code = 390403121] Future Scheduled 2021-01-13 ZOSTER VACCINE (1 of 2) [facility] of Test 16:15:36 [code = ZOSTER VACCINE (1 Me dicine of 2)] Future Scheduled 2021-01-13 FLU VACCINE > 6 MONTHS B [facility] Test 16:15:36 [code = FLU VACCINE > 6 Medi cine MONTHS] Future Scheduled 2021-01-13 US TRANSRECTAL W/KYLEE [facility] Test 14:15:50 BIOPSY [code = 32655] Medici ne Future Scheduled 2020-08-25 Screening for malignant [facility] Test 09:22:23 neoplasm of colon Medicine (procedure) [code = 793496851] Future Scheduled 2020-08-25 COVID-19 Vaccine (1) [facility] of Test 09:22:23 [code = COVID-19 Vaccine Med icine (1)] Future Scheduled 2020-08-25 TETANUS SHOT (ADULT) [facility] of Test 09:22:23 [code = TETANUS SHOT Medicin e (ADULT)] Future Scheduled 2020-08-25 Hepatitis C screening [facility] of Test 09:22:23 (procedure) [code = Medicine 272356770] Future Scheduled 2020-08-25 Human immunodeficiency B [facility] of Test 09:22:23 virus screening Medicine (procedure) [code = 796749133] Future Scheduled 2020-08-25 ZOSTER VACCINE (1 of 2) [facility] of Test 09:22:23 [code = ZOSTER VACCINE (1 Me dicine of 2)] Future Scheduled 2020-08-25 FLU VACCINE > 6 MONTHS B [facility] 09:22:23 [code = FLU VACCINE > 6 Medi cine MONTHS] Encounters Start End Encounter Admission Attending Care Care Encounter Source Date/Time Date/Time Type Type Clinicians Facility Department ID 2021-09-16 2021-09-16 Outpatient CHENTE SCOTT [id number] [facility] 17:01:18 18:15:40 DELVIN alvares of Medicin e 2021-08-09 2021-08-09 Letter KG Guillen [id number] Univers 00:00:00 00:00:00 (Out) Michelle MCNEIL [id number] it y of [facility] 4.2.7.2.686 Carlos Manuel as [phone] [address] 2021-08-08 2021-08-08 Outpatient R URSZULA [facility] [id number] Univers 11:20:00 11:52:37 ELDON chavez [facility] 2021-08-08 2021-08-08 Urgent Eldon Vazquez [facility] [id number] Univers 11:20:00 11:52:37 Care Unknown, Attending HEALTH 350.1.13.10 ity [facility] [id number] Carlos Manuel as EFREM?BLEA [phone] [address] MEDICAL OFFICE BUILDING 2021-08-08 2021-08-08 Outpatient R [facility] [id number] Univers 11:20:00 11:20:00 [id number] ity [facility] 2021-07-29 2021-07-29 Outpatient [id number] WENDI LESLIE [id number] Wendi 07:05:00 07:05:00 Seybol d 2021-07-29 2021-07-29 Outpatient MARCUS ACE [id number] Wendi 05:30:00 05:30:00 Seybol d 2021-06-10 2021-06-10 Outpatient CHENTE SCOTT [id number] [facility] 12:38:51 13:32:40 DELVIN alvares of Medicin e 2021-01-31 2021-01-31 [facility] [id number] [facility] 11:40:00 12:18:34 DAVID chavez o f [facility] 2021-01-31 2021-01-31 [facility] [id number] Univers 11:37:31 11:57:31 Care David Manzanares [facility] 350.1.13.10 ity [facility] 4.2.7.2.686 Carlos Manuel as EFREM?BLEA [phone] [address] MEDICAL OFFICE BUILDING 2021-01-31 2021-01-31 Outpatient R [facility] [id number] Univers 11:40:00 11:40:00 [id number] ity of [facility] 2021-01-13 2021-01-13 Office CHENTE JIMENEZ [id number] [facility] 14:15:49 19:32:35 Visit MICHEAL AMBULATOR 350.1.13.21 College Y 0.2.7.2.686 [id number] Medi ramandeep 300 e 2020-12-10 2020-12-10 Outpatient [facility] SC[facility] [id number] [facility] 16:49:14 16:55:28 DELVIN Collejensen e of Medicin e 2020-11-30 2020-11-30 Outpatient [facility] [id number] [facility] 09:50:40 09:50:40 Colleg e of Medicin e 2020-11-26 2020-11-26 Outpatient [id number] WENDI LESLIE [id number] Wendi 07:10:00 07:10:00 Seybol d 2020-11-26 2020-11-26 Office Marcus Ace 1.2.840.114 [id number] 05:58:22 06:28:22 Visit Chem 350.1.13.13 1.2.7.2.686 [id number] 2020-11-26 2020-11-26 Office Marcus Ace Chem MARLON 1.2.840.11 [id number] Wendi 05:58:22 06:28:22 Visit Marcus Ace Chem 350.1.13.13 Seybold 1.2.7.2.686 [id number] 1 2020-08-25 2020-08-25 Office RUSTY Scott 1.2.840.114 [id number] [facility] 09:07:48 09:17:48 Visit Delvin AMBULATOR 350.1.13.21 College Y 0.2.7.2.686 of [id number] Medi ramandeep 300 e 2020-06-13 2020-06-13 Urgent Provider, [facility] 1.2.840.114 [id number] Univers 08:07:39 08:27:39 Care Kelvin [facility] 350.1.13.10 ity of [place] 4.2.7.2.686 Carlos Manuel as Professio [phone] [address] Office Building One 2020-06-13 2020-06-13 Urgent Provider, [facility] [id number] 08:07:39 08:27:39 Care [facility] 350.1.13.10 Care [place] 4.2.7.2.686 Professio [phone] [place] [address] Office [address] One 2020-06-13 2020-06-13 Outpatient [facility] [id number] Univers 08:00:00 08:00:00 [id number] [facility] 2020-06-13 2020-06-13 Outpatient [facility] [id number] Univers 08:00:00 08:00:00 [facility] 2020-01-31 2020-01-31 Laboratory Lab, [facility] Fam Pob I [facility] 1.. [id number] Univers 15:37:48 15:57:48 Only Maritza Dodson A Health 350.1.13.10 ity of [place] 4.2.7.2.686 Carlos Manuel as Professio [phone] [address] Office Building One 2020-01-31 2020-01-31 Laboratory Lab, [facility] 1.2.840.114 [id number] 15:37:48 15:57:48 Only Fam Pob I Health 350.1.13.10 [place] 4.2.7.2.686 Professio [id number] [facility] Office [facility] One 2020-01-31 2020-01-31 Outpatient R [facility] [id number] Univers 15:40:00 15:40:[address] [facility] 2020-01-31 2020-01-31 Letter Doctor KG 1.2.840.114 [id number] Univers 00:00:00 00:00:00 (Out) Unassigned, EWA 350.1.13.10 ity of [place] [facility] 4.2.7.2.686 Carlos Manuel as [phone] [address] 2020-01-31 2020-01-31 Letter Doctor KG 1.2.840.114 [id number] 00:00:00 00:00:00 (Out) Unassigned, EWA 350.1.13.10 [place] [facility] 4.2.7.2.686 [id number] 2019-10-25 2019-10-25 Outpatient [facility] [id number] Memoria 11:27:26 13:13:00 hannah [facility] 2019-10-25 2019-10-25 Outpatient nullFlavo [facility] [id number] Memoria 11:27:26 13:13:00 r [facility] 2019-10-25 2019-10-25 Outpatient Dina [id number] 06:27:26 08:13:00 Jaya Navarro 2019-10-25 2019-10-25 Outpatient nullFlavo [facility] [id number] Memoria 06:27:26 08:13:00 hannah Lezama 2018-10-26 2018-10-26 Emergency E [facility] [id number] [facility] 13:47:00 13:47:00 2017-11-24 2017-11-24 Outpatient [facility]Fl[facility] [id number] Memoria 11:43:27 14:37:00 r [facility] 2017-11-24 2017-11-24 Outpatient [facility]Flavo [facility] [id number] Memoria 11:43:27 14:37:00 r [facility] 2017-11-24 2017-11-24 Outpatient Dina [id number] 06:43:27 09:37:00 Jaya Navarro 2017-11-24 2017-11-24 Outpatient nullFlavo [facility] [id number] Memoria 06:43:27 09:37:00 r gustavo CastañedaTeja 2016-02-05 2016-02-05 Outpatient 2.16.840. 2.16.840.1. 4 [id number] Memoria 06:23:42 08:10:00 [id number] 3.1.20 [id number] [facility] n [facility] 2016-02-05 2016-02-05 Outpatient nullFlavo [facility] [id number] Memoria 06:23:42 08:10:00 r gustavo Teja 2016-02-05 2016-02-05 Outpatient nullFlavo [facility] [id number] Memoria 06:23:42 08:10:00 r gustavo Teja 2015-12-09 2015-12-09 Outpatient 2.16.840. 2.16.840.1. 4 [id number] Memoria 13:06:35 16:54:00 [id number] l [id number] 81.1999 Luis M n [facility] 2015-12-09 2015-12-09 Outpatient nullFlavo [facility] [id number] Memoria 13:06:35 16:54:00 r gustavo Teja 2015-12-09 2015-12-09 Outpatient nullFlavo [facility] [id number] Memoria 13:06:35 16:54:00 hannah Lezama Results Test Description Test Time Test Comments Results Result Comments Source POCT MOLECULAR FLU 2021-08-08 16:48:57 Test Item Value Reference Range Interpretation Comme nts POCT Molecular FluA (test code = 24416-3) Negative Negative POCT Molecular FluB (test code = 12416-7) Negative Negative Lab Interpretation (test code = 41597-7) Normal [facility] RAPID FLU A AND B [id number] 18:05:00 Test Item Value Reference Range Interpretation Comments POCT INFLUENZA A (test code = Neg Negative - Negative 3840) POCT INFLUENZA B (test code = Neg Negative - Negative 3841) Lab Interpretation (test code = Normal 19805-1) [facility] URINALYSIS [id number] 00:00:00 Test Item Value Reference Range Interpretation Comments COLOR UA (test code = 5778-6) Yellow YELLOW/STRAW CLARITY UA (test code = 48213-8) Clear CLEAR GLUCOSE UA (test code = 5792-7) Negative NEGATIVE BILIRUBIN UA (test code = 5770-3) Negative NEGATIVE KETONES UA (test code = 40657-6) Negative NEGATIVE SPECIFIC GRAVITY UA (test code [...] NEGATIVE REDUCING SUBSTANCES URINE (test code = 86461-7) [facility] REF LAB[facility])2019-09-02 19:19:00 Test Item Value Reference Range Interpretation Comments SARS-COV2/RT-PCR (test Not Detected Not Detected, Negative code = 4055319) SARS-COV-[address] [facility] (test code = 6039135) Negative results do not preclude SARS-CoV-2 infection [...] of the Act.Fact Sheet for Healthcare Pro viders:https://www.HDF/Documents/Xpert%20Xpress%20SARS%20CoV-2/Fact%20Sh eets/302-3802%71GEQZ-BQE-2%20HEALTHCARE%20PROVIDERS%20FACT%20SHEET.pdfFact Sheet for Healthcare Patients:https://www.Everywun/Documents/Xpert%20Xpress%20SARS%20CoV-2/Fact%20Sheets/302-3801%20SARS-COV -2%20PATIENT%20FACT%20SHEET.pdfPerforming Laboratory:[facility] [place] [address]
[2021-11-20 17:32] LABS: Hematocrit 45.1 % (39.6-49.0); Lymphocytes % 29.6 % (15.3-44.8); MCV 87.7 fL (80-100); MPV 7.9 fL (7.6-11.3); RBC Red Blood Cell Count 5.14 M/uL (4.33-5.43)
[2021-11-20 17:44] LABS: Albumin 3.9 g/dL (3.4-5.0); Bilirubin Total 0.5 mg/dL (0.2-1.0); Potassium 4.3 mmol/L (3.5-5.1); Protein, Total 8.5 g/dL (6.4-8.2)
--- NOTE | 2021-11-20 18:15 | RAD REPORT ---
EXAM DESCRIPTION: CTAbdomen Pelvis W Contrast - 11/20/2021 6:07 pm CLINICAL HISTORY: Abdominal pain. abdominal pain COMPARISON: Abdomen Pelvis W Contrast dated 05/16/2021; Abdomen Pelvis W Contrast dated 01/01/2021 ; Abdomen Pelvis W Contrast dated 09/02/2019 TECHNIQUE: Biphasic CT imaging of the abdomen and pelvis was performed with 100 ml non-ionic IV cont rast. All CT scans are performed using dose optimization technique as appropriate and may include automated exposure control or mA/KV adjustment according to patient size. FINDINGS: The lung bases are clear.Cholecystectomy. Small hiatal hernia. The liver, spleen, pancreas, adrenal glands and kidneys are within normal limits. Several dilated and thickened small bowel loops are seen in the central abdomen and left upper quadra nt compatible with partial mechanical small-bowel obstruction. Distinct transition point is not ident ified. No free air or abscess. Mild sigmoid diverticulosis. The appendix is normal. No evidence of s ignificant lymphadenopathy. No suspicious bony findings. IMPRESSION: Moderate partial mechanical small-bowel obstruction is present in the central abdomen an d left upper quadrant.
--- NOTE | 2021-11-20 18:46 | EDPHYS ---
Physician Documentation [facility] Name: Tony Wen Age: 55 yrs Sex: Male : 1965 Arrival Date: 11/20/2021 Time: 16:16 Bed 13 Private MD: Baldo Breen R ED Physician Mark Hayden HPI: 11/20 16:21 This 55 yrs old Male presents to ER via Ambulatory with complaints of Abdominal jmm Swelling, Abdominal Pain. 16:21 The patient presents with abdominal pain. Onset: The symptoms/episode began/occurred jmm gradually, this morning. The symptoms do not radiate. Associated signs and symptoms: Pertinent positives: nausea. The symptoms are described as achy. Modifying factors: The symptoms are alleviated by nothing, the symptoms are aggravated by nothing. The patient has experienced similar episodes in the past. 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 - Social history:: Smoking status: Patient denies any tobacco usage or history of. ROS: 16:21 Constitutional: Negative for fever, chills, and weight loss, Cardiovascular: Negative jmm for chest pain, palpitations, and edema, Respiratory: Negative for shortness of breath, cough, wheezing, and pleuritic chest pain. 16:21 Abdomen/GI: Positive for abdominal pain. 16:21 All other systems are negative. Exam: 16:21 Constitutional: This is a well developed, well nourished patient who is awake, alert, jmm and in no acute distress. Head/Face: atraumatic. Eyes: EOMI, no conjunctival erythema appreciated ENT: Moist Mucus Membranes Neck: Trachea midline, Supple Chest/axilla: Normal chest wall appearance and motion. Cardiovascular: Regular rate and rhythm. No edema appreciated Respiratory: Normal respirations, no respiratory distress appreciated 16:21 Back: Normal ROM Skin: General appearance color normal MS/ Extremity: Moves all extremities, no obvious deformities appreciated, no edema noted to the lower extremities Neuro: Awake and alert Psych: Behavior is normal, Mood is normal, Patient is cooperative and pleasant 16:21 Abdomen/GI: Inspection: abdomen appears normal, Bowel sounds: normal, Palpation: soft, mild abdominal tenderness, in all quadrants. Vital Signs: 16:19 BP 129 / 85; Pulse 87; Resp 16; Temp 97.4; Pulse Ox 100% on R/A; Weight 96.16 kg; hb Height 5 ft. 10 in. (177.80 cm); Pain 7/10; 16:30 BP 123 / 91; Pulse 108; Pulse Ox 98% ; ko1 16:19 Body Mass Index 30.42 (96.16 kg, 177.80 cm) hb MDM: 16:23 Patient medically screened. [facility] 18:32 Data reviewed: vital signs, nurses notes. Counseling: I had a detailed discussion with [facility] the patient and/or guardian regarding: the historical points, exam findings, and any diagnostic results supporting the discharge/admit diagnosis, lab results, radiology results, the need for further work-up and treatment in the hospital. ED course: I discussed the patient with Emily Jo PA-C whom accepted the patient for admission. . 11/20 16:21 Order name: CBC with Diff; Complete Time: 18:07 [facility] 11/20 16:21 Order name: CMP; Complete Time: 18:07 [facility] 11/20 16:21 Order name: Lipase; Complete Time: 18:07 [facility] 11/20 16:22 Order name: Lactate; Complete Time: 18:07 [facility] 11/20 18:21 Order name: SARS RAPID; Complete Time: 19:27 [facility] 11/20 19:20 Order name: Urine Dipstick-Ancillary; Complete Time: 19:27 [facility] 11/20 16:21 Order name: IV Saline Lock; Complete Time: 17:14 [facility] 11/20 16:21 Order name: Labs collected and sent; Complete Time: 17:14 [facility] 11/20 16:21 Order name: Urine Dipstick-Ancillary (obtain specimen); Complete Time: 19:23 [facility] 11/20 16:24 Order name: CT Abd/Pelvis - IV Contrast Only; Complete Time: 18:20 [facility] Administered Medications: 17:13 Drug: morphine 4 mg Route: IVP; Infused Over: 4 mins; Site: right antecubital; ko1 17:14 Drug: NS 0.9% 1000 ml Route: IV; Rate: 1 bolus; Site: right antecubital; ko1 17:14 Drug: Zofran (Ondansetron) 4 mg Route: IVP; Site: right antecubital; ko1 Disposition: 11/21 07:04 Co-signature as Attending Physician, Mark Hayden MD. rn Disposition Summary: 11/20/21 18:46 Hospitalization Ordered Hospitalization Status: Inpatient Admission [facility] Provider: Jyaant Sands Location: Telemetry/MedSur (Inpatient) jmm Condition: Stable jmm Problem: an acute exacerbation jmm Symptoms: have improved jmm Bed/Room Type: Standard [facility] Room Assignment: 204(11/20/21 20:24) mw Diagnosis - Small Bowel Obstruction [facility] Forms: - Medication Reconciliation Form jmm - SBAR form [facility] Signatures: Dispatcher [employer] EDKenya Raymundo RN RN Paco Ely PA PA jmm Nieto, Roman, MD MD rn Baxter, Heather, RN RN hb Oliver, Kathy, RN RN ko1 Corrections: (The following items were deleted from the chart) 11/20 20:24 18:46 jmm mw
--- NOTE | 2021-11-20 18:46 | ER ---
Nurse's Notes [facility] Name: Tony Wen Age: 55 yrs Sex: Male : 1965 Arrival Date: 11/20/2021 Time: 16:16 Bed 13 Private MD: Baldo Breen R Diagnosis: Small Bowel Obstruction Presentation: 11/20 16:19 Chief complaint: Abdominal pain and swelling since this morning, nausea this afternoon. hb Hx of Crohn's + bowel obstructions. Coronavirus screen: At this time, the client does not indicate any symptoms associated with coronavirus-19. Ebola Screen: No symptoms or risks identified at this time. Risk Assessment: Do you want to hurt yourself or someone else? Patient reports no desire to harm self or others. Onset of symptoms was November 20, 2021. 16:19 Method Of Arrival: Ambulatory hb 16:19 Acuity: LEANNE 3 hb Historical: - Allergies: 16:21 Cipro; hb - Home Meds: 16:21 valsartan 160 mg Oral tab 1 tab once daily [Active]; hb - PMHx: 16:21 chrons disease; Hypertensive disorder; hb - PSHx: 16:21 colon resection; hernia repair; hb - Immunization history:: Adult Immunizations up to date. - Social history:: Smoking status: Patient denies any tobacco usage or history of. Screenin:30 Abuse screen: Denies threats or abuse. Denies injuries from another. Nutritional ko1 screening: No deficits noted. Tuberculosis screening: No symptoms or risk factors identified. Fall Risk IV access (20 points). Assessment: 16:30 General: Appears in no apparent distress. comfortable, Behavior is calm, cooperative, ko1 appropriate for age. Pain: Complains of pain in right upper quadrant, left upper quadrant, right lower quadrant and left lower quadrant. Neuro: No deficits noted. Cardiovascular: No deficits noted. Respiratory: No deficits noted. GI: Bowel sounds present X 4 quads. Abd is soft Abdomen is tender to palpation in right upper quadrant, left upper quadrant, right lower quadrant and left lower quadrant. : No deficits noted. EENT: No deficits noted. Derm: No deficits noted. Musculoskeletal: No deficits noted. Vital Signs: 16:19 BP 129 / 85; Pulse 87; Resp 16; Temp 97.4; Pulse Ox 100% on R/A; Weight 96.16 kg; hb Height 5 ft. 10 in. (177.80 cm); Pain 7/10; 16:30 BP 123 / 91; Pulse 108; Pulse Ox 98% ; ko1 16:19 Body Mass Index 30.42 (96.16 kg, 177.80 cm) hb ED Course: 16:16 Patient arrived in ED. mr 16:16 Baldo Breen MD is Private Physician. mr 16:17 [facility] 16:17 Mark Hayden MD is Attending Physician. [facility] 16:21 Triage completed. hb 16:21 Arm band placed on. hb 16:30 Patient has correct armband on for positive identification. Bed in low position. Call ko1 light in reach. Side rails up X 1. Client placed on continuous cardiac and pulse oximetry monitoring. NIBP monitoring applied. 16:30 Inserted saline lock: 20 gauge in right antecubital area, using aseptic technique. ko1 Blood collected. 16:43 Claudia Bell, RN is Primary Nurse. ko1 17:14 CBC with Diff Sent. ko1 17:14 CMP Sent. ko1 17:14 Lipase Sent. ko1 17:14 Lactate Sent. ko1 18:09 CT Abd/Pelvis - IV Contrast Only In Process Unspecified. EDMS 18:45 Jayant Sands is Hospitalizing Provider. m 18:55 SARS RAPID Sent. ko1 Administered Medications: 17:13 Drug: morphine 4 mg Route: IVP; Infused Over: 4 mins; Site: right antecubital; ko1 17:14 Drug: NS 0.9% 1000 ml Route: IV; Rate: 1 bolus; Site: right antecubital; ko1 17:14 Drug: Zofran (Ondansetron) 4 mg Route: IVP; Site: right antecubital; ko1 Medication: 16:30 VIS not applicable for this client. ko1 Outcome: 18:46 Decision to Hospitalize by Provider. [facility] 21:54 Patient left the ED. ke1 Signatures: Dispatcher [employer] EDMS Paco Hu PA PA jmm Rivera, Mary mr Cecilia Remy RN RN Garcia Ellis RN RN ke Claudia Bell, VALENTINE RN ko1 Corrections: (The following items were deleted from the chart) 18:26 17:30 BP 114 / 80; Pulse 109bpm; Pulse Ox 96%; ko1 ko1
[2021-11-20 19:19] LABS: Urine Blood Negative (Negative); Urine Glucose Negative (Negative); Urine Protein Negative (Negative)
[2021-11-20 19:25] LABS: SARS-CoV-2 Antigen Rapid Res Negative (Negative)
--- NOTE | 2021-11-20 19:39 | P.HP ---
Certification for Inpatient Patient admitted to: Inpatient With expected LOS: <2 Midnights Patient will require the following post-hospital care: None Practitioner: I am a practitioner with admitting privileges, knowledge of patient current condition, hospital course, and medical plan of care. Services: Services provided to patient in accordance with Admission requirements found in Title 42 Section 412.3 of the Code of Federal Regulations Patient History Date of Service: 11/20/21 Primary Care Provider: Jamshid Reason for admission: SBO History of Present Illness: Patient is a 55-year-old male with history of Crohn's disease who presented to the ED with complaints of abdominal pain that began this morning. Patient reports 1 episode of vomiting this morning. He states that he has had a few small bowel movements today but has been passing minimal gas. His labs are unremarkable. Vital signs stable. CT abdomen pelvis showed "Moderate partial mechanical small-bowel obstruction is present in the central abdomen and left upper quadrant." He received morphine, zofran, and 1 L fluid in ED. Patient is on Humira for his Crohn's biweekly since 2003 and reports his Crohn's is well controlled. He has had 3 SBOs in the past and knows exactly what they feel like and they have resolved with conservative management. He is reporting 0 pain during my assessment. He is admitted for further management. Allergies ciprofloxacin [From Cipro] Allergy (Verified 09/02/19 02:44) Itching Home medications list reviewed: Yes Home Medications: Adalimumab [Humira(Cf) Pen] 40 mg IM SEECOM 09/02/19 Valsartan 1 tab PO DAILY 01/01/21 - Past Medical/Surgical History Diabetic: No -: Crohn's disease -: Bowel obstructions -: HTN -: COLON RESECTION(2003) -: COLONOSCOPY(2019) -: OPEN CHOLECYSTECTOMY -: incisional hernia repair Psychosocial/ Personal History: PCP is Dr. Breen - Family History Father -: Heart disease Notes: bipass Mother -: Diabetes Notes: on insulin - Social History Smoking Status: Never smoker Alcohol use: Yes CD- Drugs: No Caffeine use: Yes Place of Residence: Home Review of Systems Gastrointestinal: Nausea, Vomiting, Abdominal Pain Physical Examination - Physical Exam General: Alert, In no apparent distress HEENT: Atraumatic, PERRLA, EOMI, Sclerae nonicteric Neck: Supple, 2+ carotid pulse no bruit, No LAD, Without JVD or thyroid abnormality Respiratory: Clear to auscultation bilaterally, Normal air movement Cardiovascular: Regular rate/rhythm, Normal S1 S2 Gastrointestinal: Normal bowel sounds, Soft and benign, Non-distended Musculoskeletal: No tenderness Integumentary: No rashes Neurological: Normal speech, Normal strength at 5/5 x4 extr, Normal tone, Normal affect - Studies Laboratory Data (last 24 hrs) 11/20/21 17:10: Sodium 136, Potassium 4.3, BUN 15, Creatinine 1.22, Glucose 116 H, Total Bilirubin 0.5, AST 25, ALT 49, Alkaline Phosphatase 77, Lipase 125 11/20/21 17:10: WBC 10.00, Hgb 15.1, Hct 45.1, Plt Count 273 Assessment and Plan - Problems (Diagnosis) (1) Crohn's disease with intestinal obstruction Current Visit: Yes Status: Acute Qualifiers: Gastrointestinal tract location: small intestine Qualified Code(s): K50.012 - Crohn's disease of small intestine with intestinal obstruction (2) Hypertension Current Visit: Yes Status: Chronic Qualifiers: Hypertension type: primary hypertension Qualified Code(s): I10 - Essential (primary) hypertension - Plan -SBOs in the past have resolved quickly with conservative management -NPO. IV fluids and IV steroids -Will hold off on antibiotics at this time as patient has no leukocytosis, tachycardia, or concern for infection -Encourage ambulation -medication as needed for blood pressure -Monitor and replete electrolytes per protocol -Reconcile and continue home medications -Lovenox for VTE ppx -Full code Discharge Plan: Home Plan to discharge in: 48 Hours - Advance Directives Does patient have a Living Will: No Does patient have a Durable POA for Healthcare: No - Code Status/Comfort Care Code Status Assessed: Yes (Full) Critical Care: No Time Spent Managing Pts Care (In Minutes): 50
[2021-11-20] MEDS ORDERED: ONDANSETRON 4 MG/2 ML VIAL IV PRN (20:36)
[2021-11-20 20:50] VITALS: BMI 30.4
[2021-11-20] MEDS ORDERED: MORPHINE 2 MG/ML SYR IV PRN (22:12)
[2021-11-20] MEDS: NA CHLORIDE 0.9% 1,000 ML IV SCH (22:16)
[2021-11-21] MEDS: METHYLPREDNISOLONE 40 MG INJ IV SCH ×3 (00:41→17:18)
[2021-11-21] MEDS: NA CHLORIDE 0.9% 1,000 ML IV SCH ×2 (06:25→17:20)
[2021-11-21 07:14] LABS: Absolute Lymphocytes (CBC) 1.6 K/uL (0.7-4.9); Hematocrit 41.6 % (39.6-49.0); Lymphocytes % 13.6 % (15.3-44.8); MCV 87.2 fL (80-100); MPV 7.8 fL (7.6-11.3); RBC Red Blood Cell Count 4.77 M/uL (4.33-5.43)
[2021-11-21 07:28] LABS: Magnesium 1.9 mg/dL (1.8-2.4); Phosphorus 2.5 mg/dL (2.5-4.9); Potassium 4.8 mmol/L (3.5-5.1); Thyroid Stimulating Hormone 0.335 uIU/mL (0.360-3.740)
[2021-11-21] MEDS: ENOXAPARIN 40 MG/0.4 ML SQ SCH (08:46)
--- NOTE | 2021-11-21 15:27 | RAD REPORT ---
EXAM DESCRIPTION: RAD - Abdomen 1 View (KUB) - 11/21/2021 3:09 pm CLINICAL HISTORY: Partial bowel obstruction COMPARISON: Abdomen 1 View (KUB) dated 09/02/2019 FINDINGS: Prominent small bowel pattern is present in the mid left abdomen unchanged from the Septem study. No new or progressive small bowel dilatation. No free air or pneumatosis. Air and stool are present in nondilated colon. No suspicious calcifications. No significant bony findings numerous surgical clips overlie the right upper quadrant, left upper kari drant and left mid abdomen. IMPRESSION: Prominent small bowel pattern similar to the November [address] CT study. No progression or re solution. No free air or other emergent finding.
--- NOTE | 2021-11-21 15:45 | P.PN ---
Subjective Date of Service: 11/21/21 Primary Care Provider: Jamshid Chief Complaint: SBO Patient states his abdominal pain has resolved. No BM yet. Physical Examination - Vital Signs Temperature: 97.0 F Blood Pressure: 111/59 Pulse: 75 Respirations: 16 Pulse Ox (%): 94 - Studies Laboratory Data (last 24 hrs) 11/20/21 17:10: Sodium 136, Potassium 4.3, BUN 15, Creatinine 1.22, Glucose 116 H, Total Bilirubin 0.5, AST 25, ALT 49, Alkaline Phosphatase 77, Lipase 125 11/20/21 17:10: WBC 10.00, Hgb 15.1, Hct 45.1, Plt Count 273 Assessment And Plan - Plan Physical Exam General: Alert, In no apparent distress Neck: Supple, 2+ carotid pulse no bruit, No LAD, Without JVD or thyroid abnormality Respiratory: Clear to auscultation bilaterally, Normal air movement Cardiovascular: Regular rate/rhythm, Normal S1 S2 Gastrointestinal: Reduced bowel sounds, Soft and benign, Non-distended Musculoskeletal: No tenderness Neurological: Normal speech, Normal strength at 5/5 x4 extr, Normal tone, Normal affect Plan: Repeat KUB still shows dilated small bowel and stool in the colon. Reduced bowel sounds on examination. Suspect ileus. Clear liquid diet Continuous steroid. Empiric antibiotic Serial abdominal examination.
[2021-11-21 19:04] LABS: Specific Gravity 1.008 (1.005-1.030); Urine Bilirubin NEGATIVE (Negative); Urine Blood Negative (Negative); Urine Clarity Clear (Clear); Urine Color Colorless (Yellow); Urine Glucose NEGATIVE (Negative); Urine Protein NEGATIVE (Negative); Urine Urobilinogen Normal (Normal); Urine pH 5.5 (5.0-7.0)
[2021-11-22] MEDS: METHYLPREDNISOLONE 40 MG INJ IV SCH ×2 (00:59→08:58)
[2021-11-22] MEDS: NA CHLORIDE 0.9% 1,000 ML IV SCH (02:21)
[2021-11-22 05:46] LABS: Absolute Lymphocytes (CBC) 1.9 K/uL (0.7-4.9); Hematocrit 38.3 % (39.6-49.0); MCV 87.7 fL (80-100); MPV 7.8 fL (7.6-11.3); RBC Red Blood Cell Count 4.37 M/uL (4.33-5.43)
[2021-11-22 06:07] LABS: Potassium 4.4 mmol/L (3.5-5.1)
[2021-11-22 08:09] VITALS: TEMP 97.4
[2021-11-22 08:11] VITALS: BP 123/91; O2SAT 98
[2021-11-22] MEDS: ENOXAPARIN 40 MG/0.4 ML SQ SCH (08:57)
--- NOTE | 2021-11-22 09:14 | P.DS ---
Admission Date: 11/20/21 Discharge Date: 11/22/21 Primary Care Provider: Jamshid Disposition: ROUTINE DISCHARGE Discharge Condition: FAIR Reason for Admission: SBO - Problems (1) Crohn's disease with intestinal obstruction Status: Acute Qualifiers: Gastrointestinal tract location: small intestine Qualified Code(s): K50.012 - Crohn's disease of small intestine with intestinal obstruction (2) Hypertension Status: Chronic Qualifiers: Hypertension type: primary hypertension Qualified Code(s): I10 - Essential (primary) hypertension Brief History of Present Illness: Patient is a 55-year-old male with history of Crohn's disease who presented to the ED with complaints of abdominal pain that began this morning. Patient reports 1 episode of vomiting this morning. He states that he has had a few s mall bowel movements today but has been passing minimal gas. His labs were unremarkable. Vital signs stable. CT abdomen pelvis showed "Moderate partial mechanical small-bowel obstruction is present in the central abdomen and left upper quadrant." He received morphine, zofran, and 1 L fluid in ED. Patient is on Humira for his Crohn's biweekly since 2003 and reports his Crohn's is well controlled. He has had 3 SBOs in the past and knows exactly what they feel like and they have resolved with conservative management. He is reporting 0 pain during my assessment. He is admitted for further management. Hospital Course: Test to the medical floor and treated with IV steroid and supportive measures. His symptoms improved, patient had multiple bowel movements. Patient tolerated liquid diet. He is currently asymptomatic and deemed stable for discharge. Vital Signs/Physical Exam: Temp Pulse Resp BP Pulse Ox 97.4 F 108 H 16 123/91 H 93 11/22/21 08:07 11/22/21 08:09 11/22/21 08:07 11/22/21 08:09 11/22/21 08:00 General: Alert, In no apparent distress, Oriented x3 HEENT: Mucous membr. moist/pink Neck: JVD not distended Respiratory: Clear to auscultation bilaterally, Normal air movement Cardiovascular: No edema, Regular rate/rhythm, Normal S1 S2 Gastrointestinal: Normal bowel sounds, Soft and benign, Non-distended Musculoskeletal: No swelling Integumentary: No rashes, No erythema Neurological: Normal strength at 5/5 x4 extr Laboratory Data at Discharge: WBC 16.20 K/uL (4.3-10.9) H 11/22/21 05:33 Hgb 12.8 g/dL (13.6-17.9) L D 11/22/21 05:33 Hct 38.3 % (39.6-49.0) L 11/22/21 05:33 Plt Count 240 K/uL (152-406) 11/22/21 05:33 Sodium 140 mmol/L (136-145) 11/22/21 05:33 Potassium 4.4 mmol/L (3.5-5.1) 11/22/21 05:33 BUN 16 mg/dL (7-18) 11/22/21 05:33 Creatinine 1.00 mg/dL (0.55-1.3) 11/22/21 05:33 Glucose 140 mg/dL (74-106) H 11/22/21 05:33 Phosphorus 2.5 mg/dL (2.5-4.9) 11/21/21 06:43 Magnesium 1.9 mg/dL (1.8-2.4) 11/21/21 06:43 Total Bilirubin 0.5 mg/dL (0.2-1.0) 11/20/21 17:10 AST 25 U/L (15-37) 11/20/21 17:10 ALT 49 U/L (12-78) 11/20/21 17:10 Alkaline Phosphatase 77 U/L (45-117) 11/20/21 17:10 Triglycerides 84 mg/dL (<150) 11/21/21 06:43 Cholesterol 191 mg/dL (<200) 11/21/21 06:43 HDL Cholesterol 61 mg/dL (40-60) H 11/21/21 06:43 Cholesterol/HDL Ratio 3.13 11/21/21 06:43 Lipase 125 U/L (73-393) 11/20/21 17:10 Home Medications: Adalimumab [Humira(Cf) Pen] 40 mg IM SEECOM 09/02/19 Valsartan 1 tab PO DAILY 01/01/21 predniSONE [Deltasone] 20 mg PO DAILY #5 tab 11/22/21 New Medications: predniSONE [Deltasone] 20 mg PO DAILY #5 tab Followup: Baldo Breen MD [Primary Care Provider] - Time spent managing pt's care (in minutes): 28
== END 2021-11-22 09:35 | disposition home or self-care (01) | DRG 387 ==
LOC: ER 16:14 → ERHOLD 19:22 → 2ND 21:33
PROVIDERS: ADMIT Internal Medicine; ATTEND Internal Medicine
DX: K50.012 Crohn's disease of small intestine with intestinal obstruction (principal); I10 Essential (primary) hypertension; Z88.1 Allergy status to other antibiotic agents; Z79.52 Long term (current) use of systemic steroids; Z90.49 Acquired absence of other specified parts of digestive tract; Z79.899 Other long term (current) drug therapy; Z20.822 Contact with and (suspected) exposure to COVID-19
CPT/HCPCS: 36415; 74018; 74177; 80048; 80053; 80061; 81003; 83605; 83690; 83735; 84100; 84443; 85025; 87811; 96374; 96375; 99284; J1650; J2270; J2405; J2920; J7030; Q9967

== ENCOUNTER 2022-11-28 22:37 | Inpatient (IN) | payer BC ==
--- OUTSIDE RECORDS SUMMARY | 2022-11-28 22:50 | XMS REPORT | Continuity of Care Document ---
:1965 Author Organization [facility] t Address [address] [place] [address] [place] [id number] Care Team Providers Name Role Phone Asked, No Pcp Primary Care Physician Unavailable ALEXIS MCFARLAND Attending Clinician Unavailable Michelle Guillen RN Attending Clinician Unavailable ELDON SEAMAN Attending Clinician Unavailable Ebrahim CAREER ORIENTATION TEACHEREldon Attending Clinician Unknown, Attending Attending Clinician Unavailable [id number] Attending Clinician Unavailable MARCUS ACE CHEM Attending Clinician Unavailable DAVID NELSON Attending Clinician Unavailable David Freed Attending Clinician Marcus Ace Chem Attending Clinician Unavailable Provider, [facility] Attending Clinician Unavailable Wen Moncada Attending Clinician WEN GALICIA Attending Clinician Unavailable Lab, Adc Fam Pob I Attending Clinician Unavailable Maritza Carballo Attending Clinician Doctor Unassigned, [place] Attending Clinician Unavailable Jaya Arroyo Attending Clinician Jaya Arroyo Admitting Clinician Payers Payer Name Policy Type Policy Number Effective Date Expiration Date S eligio BS 2 [id number] 2020 00:00:00 Problems Condition Condition Condition Status Onset Resolution Last Treating Co mments Source Name Details Category Date Date Treatment Clinician Date External External Disease Active 2015-02 Metho di hemorrhoid hemorrhoid 03-06 [facility]osp[facility] 00 l Crohn's Crohn's Disease Recurre 2014-[address] [facility] Gallstones Gallstones Disease Active 2014-[address] [facility] Crohn's Crohn's Disease Active Univers disease disease 16 ity of 00:00: [place] 00 [facility] Branch No known No known Disease Unive rs active active ity of problems problems [facility] Hemorrhoid Hemorrhoi Problem Active 2019-10-27 Memoria s ds 04:01:04 l (disorder) (disorder) He rmann Active Problem 10/27/2019 [facility] Osteopenia Osteopeni Problem Active 2019-10-27 Memoria (disorder) a 04:01:04 l (disorder) Luis M n Active Problem 10/27/2019 [facility] History of Past Illness Condition Condition Condition [...] abscess abscess with with bleeding bleeding 10/25/2019 0 [facility] Allergies, Adverse Reactions, Alerts Allergy Allergy Status Severity Reaction(s) Onset Inactive Treating Comm ents Source Name Type Date Date Clinician Ciproflo Propensi Active 2015-02 Method i xacin ty to 03-06 st adverse 00:00: Hospita reaction 00 l s to drug Ciproflo Drug Active Rash 2014-[address] [facility] xacin Allergy 03-18 [facility] Medical [address] [place] [address] Ciproflo Drug Active Unknown - Unive rs xacin Allergy See comments 05-17 ity of 00:00: [address] CIPROFLO DRUG Active Low Rash Univers XACIN INGREDI 05-17 ity of 00:00: [address] Ciproflo Propensi Active Hives Wendi xacin ty to 05-17 Seybold Hydrochl adverse 00:00: - oride reaction 00 Externa s l NO KNOWN Drug Active Univers ALLERGIE Class ity of S [facility] Cipro Cipro Active Memoria l Teja Social History Social Habit Start Date Stop Date Quantity Comments Source Sexual orientation Method ist Hospital History SDOH Wendi Seybo ld Alcohol Binge Gender identity Wendi Se ybold - External History SDOH Wendi Seybo ld Alcohol Frequency History SDOH Wendi Seybo ld Alcohol Std Drinks Tobacco use and 2022-07-28 2022-07-28 Smokeless Wendi Se ybold - exposure 00:00:00 00:00:00 tobacco non-user External Exposure to 2021-07-29 2021-08-08 Not sure [facility] SARS-CoV-2 (event) 00:00:00 11:25:00 [facility] Alcohol Comment 2020-11-26 2020-11-26 Social Wendi Se ybold - 00:00:00 00:00:00 External History of Social 2016-08-28 2016-08-[address] function 00:00:00 00:00:00 Hospital Alcohol intake 2015-01-19 2015-01-19 [facility] (finding) Sex [birth year] At [birth year] JEYSON Stephanie kes 00:00:00 00:00:00 [facility] Smoking Status Start Date Stop Date Source Unknown [facility] Social History [facility] Medications Ordered Filled Start Stop Current Ordering Indication Dosage Frequency Signature Comments Components Source Medication Medication Date Date Medication? Clinician (SIG) Name Name Naun Yes INSTILL 1 Zahida ey 0.07 % 5-09 DROP TO Seybold ophthalmic 00:00: THE LEFT - Solution 00 EYE 1 TIME Exter na A DAY l prednisoLON Yes INSTILL 1 K elsey E Acetate 1 5-05 DROP TO Seybo ld % 00:00: THE LEFT - ophthalmic 00 EYE 4 Externa Suspension TIMES A l DAY Silodosin 8 Yes 8mg Take 1 Zahida ey MG oral 4-14 capsule (8 Seybol d Capsule 00:00: mg total) - 00 by mouth Externa daily l Fluticasone Yes APPLY Kelse y Propionate 3-12 TWICE A Seybol d 0.05 % 00:00: DAY TO - apply 00 FACE Externa externally l Cream Silodosin 8 2021-02 Yes 8mg Take 1 Zahida ey MG oral 2-26 capsule (8 Seybol d Capsule 00:00: mg total) - 00 by mouth Externa daily l Adalimumab Yes 40mg Inject 40 Ke lsey 40 MG/0.8ML 6-02 mg into Seybo ld subcutaneou 05:49: the skin - s Prefilled 55 every 14 Exte rna Syringe Kit days l Humira Pen Yes Wendi 40 MG/0.4ML 5-16 Seybold subcutaneou 00:00: - s 00 Externa Pen-injecto l r Kit (Citrate-fr ee) alfuzosin Yes TAKE 1 Univer s 10 mg 24 hr 4-18 TABLET BY ity of tablet 00:00: MOUTH [place] 00 DAILY Medical (WITH MAIN Branch MEAL). alfuzosin Yes TAKE 1 Univer s 10 mg 24 hr 4-18 TABLET BY ity of tablet 00:00: MOUTH [place] 00 DAILY Medical (WITH MAIN Branch MEAL). Alfuzosin Yes TAKE 1 Wendi HCl 10 MG 4-18 TABLET BY Seybo ld oral TABLET 00:00: MOUTH - SR 24 HR 00 DAILY Externa (WITH MAIN l MEAL). benzonatate 2020-02- No [id number] 200mg Take 1 Univers 200 mg 2-05 12-16 capsule by ity of capsule 00:00: 05:59 mouth 3 [place] 00 :00 (three) Medical times Branch daily as needed for Cough for up to 10 days. Adalimumab Yes 40mg Inject 40 Ke lsey 40 MG/0.8ML 9-30 mg into Seybo ld subcutaneou 06:00: the skin s Prefilled 09 every 14 Syringe Kit days triamcinolo Yes [id number] Apply to [facility] 4-17 area(s) 3 ity of acetonide 00:00: (three) [place] 0.1 % 00 times Medical ointment daily. Branch triamcinolo Yes [id number] Apply to [facility] 4-17 area(s) 3 ity of acetonide 00:00: (three) [place] 0.1 % 00 times Medical ointment daily. Branch triamcinolo Yes [id number] Apply to [facility] 4-17 area(s) 3 ity of acetonide 00:00: (three) [place] 0.1 % 00 times Medical ointment daily. Branch triamcinolo Yes [id number] Apply to [facility] 4-17 area(s) 3 ity of acetonide 00:00: [...] Seybold Tablet 00:00: mouth 00 every morning Valsartan Yes 160mg Take 160 Eliezer sey 160 MG oral 4-02 mg by Seybold Tablet 00:00: mouth - 00 every Externa morning l LR 1,000 mL No 1,000 mL, M emoria 8- IV, 30 l 11:35: mL/hr, start date 10/25/19 6:35:00 CDT, 2.13, m2 Lidocaine 2020-0 No 0.2 mL, Memor ia 2% 0.2 mL 10-24 Injection, l IV Start 11:35: Subcutaneo [facility] [[facility]] us, Once PRN for other (see comment), first dose 10/25/19 6:35:00 CDT LR 1,000 mL 2020-0 No 1,000 mL, M emoria - IV, 30 l 11:35: mL/hr, start date 10/25/19 6:35:00 CDT, 2.13, m2 Lidocaine 2020-0 No 0.2 mL, Memor ia 2% 0.2 mL 10-24 Injection, l IV Start 11:35: Subcutaneo [facility] [[facility]] us, Once PRN for other (see comment), first dose 10/25/19 6:35:00 CDT LR 1,000 mL 2020-0 No 1,000 mL, M emoria 10-24 IV, 30 l 11:35: mL/hr, start date 10/25/19 6:35:00 CDT, 2.13, m2 Lidocaine 2020-0 No 0.2 mL, Memor ia 2% 0.2 mL 10-24 Injection, l IV Start 11:35: Subcutaneo [facility] [[facility]] us, Once PRN for other (see comment), first dose 10/25/19 6:35:00 CDT LR 1,000 mL 2020-0 No 1,000 mL, M emoria 10-24 IV, 30 l 11:35: mL/hr, start date 10/25/19 6:35:00 CDT, 2.13, m2 Lidocaine 2020-0 No 0.2 mL, Memor ia 2% 0.2 mL 10-24 Injection, l IV Start 11:35: Subcutaneo [facility] [[place]] us, Once PRN for other (see comment), first dose 10/25/19 6:35:00 CDT LR 1,000 mL 2020-0 No 1,000 mL, M emoria 10-24 IV, 30 l 11:35: mL/hr, [place] 00 start date 10/25/19 6:35:00 CDT, 2.13, m2 Lidocaine 2020-0 No 0.2 mL, Memor ia 2% 0.2 mL 10-24 Injection, l IV Start 11:35: Subcutaneo [facility] [[place]] 00 us, Once PRN for other (see comment), first dose 10/25/19 6:35:00 CDT propofol 2018-0 No 50 mg = 5 [place] 9-28 mL, l 13:22: Emulsion, [place] 00 IV, Once, first dose 11/24/17 8:22:00 CDT, stop date 11/24/17 8:22:00 CDT propofol 2018-0 No 50 mg = 5 [place] 9-28 mL, l 13:22: Emulsion, Teja 00 IV, Once, first dose 11/24/17 8:22:00 CDT, stop date 11/24/17 8:22:00 CDT propofol 2018-0 No 50 mg = 5 [place] 9-28 mL, l 13:22: Emulsion, [place] 00 IV, Once, first dose 11/24/17 8:22:00 CDT, stop date 11/24/17 8:22:00 CDT propofol 2018-0 No 50 mg = 5 [place] 9-28 mL, l 13:22: Emulsion, Teja 00 IV, Once, first dose 11/24/17 8:22:00 CDT, stop date 11/24/17 8:22:00 CDT propofol 2018-0 No 50 mg = 5 [place] 9-28 mL, l 13:22: Emulsion, [place] 00 IV, Once, first dose 11/24/17 8:22:00 CDT, stop date 11/24/17 8:22:00 CDT propofol 2018-0 No 50 mg = 5 [place] 9-28 mL, l 13:19: Emulsion, Teja 00 IV, Once, first dose 11/24/17 8:19:00 CDT, stop date 11/24/17 8:19:00 CDT propofol 2018-0 No 50 mg = 5 [place] 9-28 mL, l 13:19: Emulsion, [place] 00 IV, Once, first dose 11/24/17 8:19:00 [...] Pablo south 9-28 mL, l 13:19: Emulsion, [place] 00 IV, Once, first dose 11/24/17 8:19:00 CDT, stop date 11/24/17 8:19:00 CDT propofol 2018-0 No 50 mg = 5 [place] 9-28 mL, l 13:16: Emulsion, Teja 00 IV, Once, first dose 11/24/17 8:16:00 CDT, stop date 11/24/17 8:16:00 CDT propofol 2018-0 No 50 mg = 5 [place] 9-28 mL, l 13:16: Emulsion, [place] 00 IV, Once, first dose 11/24/17 8:16:00 CDT, stop date 11/24/17 8:16:00 CDT propofol 2018-0 No 50 mg = 5 [place] 9-28 mL, l 13:16: Emulsion, Teja 00 IV, Once, first dose 11/24/17 8:16:00 CDT, stop date 11/24/17 8:16:00 CDT propofol 2018-0 No 50 mg = 5 [place] 9-28 mL, l 13:16: Emulsion, [place] 00 IV, Once, first dose 11/24/17 8:16:00 CDT, stop date 11/24/17 8:16:00 CDT propofol 2018-0 No 50 mg = 5 [place] 9-28 mL, l 13:16: Emulsion, Teja 00 IV, Once, first dose 11/24/17 8:16:00 CDT, stop date 11/24/17 8:16:00 CDT lidocaine 2018-0 No 3 mL, Memoria 9-28 Injection, l 13:13: IV, Once, Teja 00 first dose 11/24/17 8:13:00 CDT, stop date 11/24/17 8:13:00 CDT propofol 2018-0 No 150 mg = Memor ia 9-28 15 mL, l 13:13: Emulsion, [place] 00 IV, Once, first dose 11/24/17 8:13:00 CDT, stop date 11/24/17 8:13:00 CDT lidocaine 2018-0 No 3 mL, Memoria 9-28 Injection, l 13:13: IV, Once, [place] first dose 11/24/17 8:13:00 CDT, stop date 11/24/17 8:13:00 CDT propofol 2018-0 No 150 mg = Memor ia 9-28 15 mL, l 13:13: Emulsion, Etja 00 IV, Once, first dose 11/24/17 8:13:00 CDT, stop date 11/24/17 8:13:00 CDT lidocaine 2018-0 No 3 mL, Memoria 9-28 Injection, l 13:13: IV, Once, [place] 00 first dose 11/24/17 8:13:00 CDT, stop date 11/24/17 8:13:00 CDT propofol 2018-0 No 150 mg = Memor ia 9-28 15 mL, l 13:13: Emulsion, [place] 00 IV, Once, first dose 11/24/17 8:13:00 CDT, stop date 11/24/17 8:13:00 CDT lidocaine 2018-0 No 3 mL, Memoria 9-28 Injection, l 13:13: IV, Once, Teja 00 first dose 11/24/17 8:13:00 CDT, stop date 11/24/17 8:13:00 CDT propofol 2018-0 No 150 mg = Memor ia 9-28 15 mL, l 13:13: Emulsion, [place] 00 IV, Once, first dose 11/24/17 8:13:00 CDT, stop date 11/24/17 8:13:00 CDT lidocaine 2018-0 No 3 mL, Memoria 9-28 Injection, l 13:13: IV, Once, Teja 00 first dose 11/24/17 8:13:00 CDT, stop date 11/24/17 8:13:00 CDT propofol 2018-0 No 150 mg = Memor ia 11-24 15 mL, l 13:13: Emulsion, IV, Once, first dose 11/24/17 8:13:00 CDT, stop date 11/24/17 8:13:00 CDT Lidocaine 2018-0 Yes 0.2 mL, Memor ia 2% 0.2 mL 11-24 Injection, l IV Start 12:07: Subcutaneo [facility] [[facility]] us, Once PRN for other (see comment), first dose 11/24/17 7:07:00 CDT LR 1,000 mL 2018-0 No 1,000 mL, M emoria 11-24 IV, 30 l 12:07: mL/hr, start date 11/24/17 7:07:00 CDT Lidocaine 2018-0 Yes 0.2 mL, Memor ia 2% 0.2 mL 11-24 Injection, l IV Start 12:07: Subcutaneo [facility] [[facility]] [facility], Once PRN for other (see comment), first dose 11/24/17 7:07:00 CDT LR 1,000 mL 2018-0 No 1,000 mL, M emoria 11-24 IV, 30 l 12:07: mL/hr, start date 11/24/17 7:07:00 CDT Lidocaine 2018-0 Yes 0.2 mL, Memor ia 2% 0.2 mL 11-24 Injection, l IV [facility] 12:07[facility] us, Once PRN for other (see comment), first dose 11/24/17 7:07:00 CDT LR 1,000 mL 2018-0 No 1,000 mL, M emoria 9- IV, 30 l 12:07: mL/hr, start date 11/24/17 7:07:00 CDT Lidocaine 2018-0 Yes 0.2 mL, Memor ia 2% 0.2 mL 11-24 Injection, l IV Start 12:07: Subcutaneo [facility] [[facility]] us, Once PRN for other (see comment), first dose 11/24/17 7:07:00 CDT LR 1,000 mL No 1,000 mL, M emoria 11-24 IV, 30 l 12:07: mL/hr, start date 11/24/17 7:07:00 CDT Lidocaine Yes 0.2 mL, Memor ia 2% 0.2 mL 11-24 Injection, l IV Start 12:07: Subcutaneo [facility] [[facility]] 00 us, Once PRN for other (see comment), first dose 11/24/17 7:07:00 CDT LR 1,000 mL No 1,000 mL, M emoria 11-24 IV, 30 l 12:07: mL/hr, start date 11/24/17 7:07:[address] [facility] 2015-02 No Simon 800 mL, Memoria Medication - Corin Soln-IV, l 16:21: IV, Once, first dose 02/05/16 10:21:00 TIN CONTAINER STRAIGHTENER, stop date 02/05/16 10:21:[address] [facility] 2015-02 No Simon 800 mL, Memoria Medication - Corin Soln-IV, l 16:21: IV, Once, first dose 02/05/16 10:21:00 TIN CONTAINER STRAIGHTENER, stop date 02/05/16 10:21:[address] [facility] 2015-02 No Simon 800 mL, Memoria Medication - Corin Soln-IV, l 16:21: IV, Once, first dose 02/05/16 10:21:00 TIN CONTAINER STRAIGHTENER, stop date 02/05/16 10:21:[address] [facility] 2015-02 No Simon 800 mL, Memoria Medication - Corin Soln-IV, l 16:21: IV, Once, first dose 02/05/16 10:21:00 TIN CONTAINER STRAIGHTENER, stop date 02/05/16 10:21:[address] [facility] 2015-02 No Simon 800 mL, Memoria Medication - Corin Soln-IV, l 16:21: IV, Once, first dose 02/05/16 10:21:00 TIN CONTAINER STRAIGHTENER, stop date 02/05/16 10:21:00 TIN CONTAINER STRAIGHTENER propofol 2015-02 No Simon 60 mg = 6 Mem oria 2-09 Corin mL, l 13:21: Emulsion, [place] 00 IV, Once, first dose 02/05/16 7:21:00 TIN CONTAINER STRAIGHTENER, stop date 02/05/16 7:21:00 TIN CONTAINER STRAIGHTENER propofol 2015-02 No Simon 60 mg = 6 Mem oria 2- Corin mL, l 13:21: Emulsion, Teja 00 IV, Once, first dose 02/05/16 7:21:00 TIN CONTAINER STRAIGHTENER, stop date 02/05/16 7:21:00 TIN CONTAINER STRAIGHTENER propofol 2015-02 No Simon 60 mg = 6 Mem oria - Corin mL, l 13:21: Emulsion, Teja 00 IV, Once, first dose 02/05/16 7:21:00 TIN CONTAINER STRAIGHTENER, stop date 02/05/16 7:21:00 TIN CONTAINER STRAIGHTENER propofol 2015-02 No Simon 60 mg = 6 [facility] oria 04-07 Corin mL, l 13:21: Emulsion, Teja 00 IV, Once, first dose 02/05/16 7:21:00 TIN CONTAINER STRAIGHTENER, stop date 02/05/16 7:21:00 TIN CONTAINER STRAIGHTENER propofol 2015-02 No Simon 60 mg = 6 [facility] oria 04-07 Corin mL, l 13:21: Emulsion, Teja 00 IV, Once, first dose 02/05/16 7:21:00 TIN CONTAINER STRAIGHTENER, stop date 02/05/16 7:21:00 TIN CONTAINER STRAIGHTENER propofol 2015-02 No Simon 60 mg = 6 [facility] oria 04-07 Corin mL, l 13:15: Emulsion, Teja 00 IV, Once, first dose 02/05/16 7:15:00 TIN CONTAINER STRAIGHTENER, stop date 02/05/16 7:15:00 TIN CONTAINER STRAIGHTENER propofol 2015-02 No Ismon 60 mg = 6 [facility] oria 04-07 Corin mL, l 13:15: Emulsion, [place] 00 IV, Once, first dose 02/05/16 7:15:00 TIN CONTAINER STRAIGHTENER, stop date 02/05/16 7:15:00 TIN CONTAINER STRAIGHTENER propofol 2015-02 No Simon 60 mg = 6 Mem oria 2- Corin mL, l 13:15: Emulsion, [place] 00 IV, Once, first dose 02/05/16 7:15:00 TIN CONTAINER STRAIGHTENER, stop date 02/05/16 7:15:00 TIN CONTAINER STRAIGHTENER propofol 2015-02 No Simon 60 mg = 6 Mem oria 2 Corin mL, l 13:15: Emulsion, [place] 00 IV, Once, first dose 02/05/16 7:15:00 TIN CONTAINER STRAIGHTENER, stop date 02/05/16 7:15:00 TIN CONTAINER STRAIGHTENER [facility] 2015-02 No Simon 60 mg = 6 Mem oria - Corin mL, l 13:15: Emulsion, [place] 00 IV, Once, first dose 02/05/16 7:15:00 TIN CONTAINER STRAIGHTENER, stop date 02/05/16 7:15:00 TIN CONTAINER STRAIGHTENER Humira 2015-02 Yes mg, Memoria 2- Subcutaneo l 13:13: us, q2wk, [place] 00 0 Refill(s), CROHN'S DISEASE Humira 2015-02 Yes mg, Memoria 2- Subcutaneo l 13:13: us, q2wk, Teja 00 0 Refill(s) Humira 2015-02 Yes mg, Memoria 2- Subcutaneo l 13:13: us, q2wk, Teja 00 0 Refill(s), CROHN'S DISEASE Humira 2015-02 Yes mg, Memoria 2- Subcutaneo l 13:13: us, q2wk, [place] 00 0 Refill(s) Humira 2015-02 Yes mg, Memoria 2- Subcutaneo l 13:13: us, q2wk, Teja 00 0 Refill(s), CROHN'S DISEASE Humira 2015-02 Yes mg, Memoria 2- Subcutaneo l 13:13: us, q2wk, [place] 00 0 Refill(s) Humira 2015-02 Yes mg, Memoria 2- Subcutaneo l 13:13: us, q2wk, Teja 00 0 Refill(s), CROHN'S DISEASE Humira 2015-02 Yes mg, Memoria 2- Subcutaneo l 13:13: us, q2wk, Teja 00 0 Refill(s) Humira 2016 Yes mg, Memoria 2- Subcutaneo l 13:13: us, q2wk, Teja 00 0 Refill(s), CROHN'S DISEASE Humira 2015-02 Yes mg, Memoria 2- Subcutaneo l 13:13: us, q2wk, Teja 00 0 Refill(s) lidocaine 2015-02 No Simon 2 mL, Memori a 04-07 Corin Injection, l 13:11: IV, Once, [place] 00 first dose 02/05/16 7:11:00 TIN CONTAINER STRAIGHTENER, stop date 02/05/16 7:11:00 TIN CONTAINER STRAIGHTENER propofol 2015-02 No Simon 180 mg = [place] 04-07 Corin 18 mL, l 13:11: Emulsion, [place] 00 IV, Once, first dose 02/05/16 7:11:00 TIN CONTAINER STRAIGHTENER, stop date 02/05/16 7:11:00 TIN CONTAINER STRAIGHTENER lidocaine 2015-02 No Simon 2 mL, Memori a 04-07 Corin Injection, l 13:11: IV, Once, Teja 00 first dose 02/05/16 7:11:00 TIN CONTAINER STRAIGHTENER, stop date 02/05/16 7:11:00 TIN CONTAINER STRAIGHTENER propofol 2015-02 No Simon 180 mg = [place] 04-07 Corin 18 mL, l 13:11: Emulsion, [place] 00 IV, Once, first dose 02/05/16 7:11:00 TIN CONTAINER STRAIGHTENER, stop date 02/05/16 7:11:00 TIN CONTAINER STRAIGHTENER lidocaine 2015-02 No Simon 2 mL, Memori a 04-07 Corin Injection, l 13:11: IV, Once, Teja 00 first dose 02/05/16 7:11:00 TIN CONTAINER STRAIGHTENER, stop date 02/05/16 7:11:00 TIN CONTAINER STRAIGHTENER propofol 2015-02 No Simon 180 mg = [place] 04-07 Corin 18 mL, l 13:11: Emulsion, Teja 00 IV, Once, first dose 02/05/16 7:11:00 TIN CONTAINER STRAIGHTENER, stop date 02/05/16 7:11:00 TIN CONTAINER STRAIGHTENER lidocaine 2015-02 No Simon 2 mL, Memori a 04-07 Corin Injection, l 13:11: IV, Once, Teja 00 first dose 02/05/16 7:11:00 TIN CONTAINER STRAIGHTENER, stop date 02/05/16 7:11:00 TIN CONTAINER STRAIGHTENER propofol 2015-02 No Simon 180 mg = [place] 04-07 Corin 18 mL, l 13:11: Emulsion, Teja 00 IV, Once, first dose 02/05/16 7:11:00 TIN CONTAINER STRAIGHTENER, stop date 02/05/16 7:11:00 TIN CONTAINER STRAIGHTENER lidocaine 2015-02 No Simon 2 mL, Memori a 04-07 Corin Injection, l 13:11: IV, Once, Teja 00 first dose 02/05/16 7:11:00 TIN CONTAINER STRAIGHTENER, stop date 02/05/16 7:11:00 TIN CONTAINER STRAIGHTENER propofol 2015- No Simon 180 mg = [place] 04-07 Corin 18 mL, l 13:11: Emulsion, [place] 00 IV, Once, first dose 02/05/16 7:11:00 TIN CONTAINER STRAIGHTENER, stop date 02/05/16 7:11:00 TIN CONTAINER STRAIGHTENER Lidocaine 2015-02 No Homero 0.2 mL, [place] 2% 0.2 mL 04-07 Marisel TUTTLE Injection, l IV Start 13:08: Subcutaneo [facility] [[facility]] 00 us, Once PRN for other (see comment), first dose 02/05/16 7:08:00 TIN CONTAINER STRAIGHTENER LR 1,000 mL 2015-02 No Homero 1,000 mL, Donyaoria 04-07 Marisel TUTTLE IV, 30 l 13:08: mL/hr, start date 02/05/16 7:08:00 TIN CONTAINER STRAIGHTENER Lidocaine 2015-02 No Homero 0.2 mL, [place] 2% 0.2 mL 04-07 Marisel TUTTLE Injection, l IV Start 13:08: Subcutaneo [facility] [[facility]] 00 us, Once PRN for other (see comment), first dose 02/05/16 7:08:00 TIN CONTAINER STRAIGHTENER LR 1,000 mL 2015-02 No Homero 1,000 mL, Donyaoria 04-07 Marisel TUTTLE IV, 30 l 13:08: mL/hr, start date 02/05/16 7:08:00 TIN CONTAINER STRAIGHTENER Lidocaine 2015-02 No Homero 0.2 mL, [place] 2% 0.2 mL 04-07 Marisel TUTTLE Injection, l IV Start 13:08: Subcutaneo [facility] [[facility]] 00 us, Once PRN for other (see comment), first dose 02/05/16 7:08:00 TIN CONTAINER STRAIGHTENER LR 1,000 mL 2015-02 No Homero 1,000 mL, Donyaoria 04-07 Marisel TUTTLE IV, 30 l 13:08: mL/hr, [place] 00 start date 02/05/16 7:08:00 TIN CONTAINER STRAIGHTENER Lidocaine 2015-02 No Homero 0.2 mL, [place] 2% 0.2 mL 04-07 Marisel TUTTLE Injection, l IV Start 13:08: Subcutaneo [facility] [[facility]] 00 us, Once PRN for other (see comment), first dose 02/05/16 7:08:00 TIN CONTAINER STRAIGHTENER LR 1,000 mL 2015-02 No Homero 1,000 mL, Memoria 2- Marisel TUTTLE IV, 30 l 13:08: mL/hr, start date 02/05/16 7:08:00 TIN CONTAINER STRAIGHTENER Lidocaine 2015-02 No Homero 0.2 mL, [place] 2% 0.2 mL 04-07 Marisel TUTTLE Injection, l IV Start 13:08: Subcutaneo [facility] [[facility]] 00 us, Once PRN for other (see comment), first dose 02/05/16 7:08:00 TIN CONTAINER STRAIGHTENER LR 1,000 mL 2015-02 No Homero 1,000 mL, Memoria 2 Marisel TUTTLE IV, 30 l 13:08: mL/hr, start date 02/05/16 7:08:00 TIN CONTAINER STRAIGHTENER No known 2015-02 No No known Metho [...] Memoria 0-12 Sanchez tabs, l 20:45: Tab-Dis, Oral, Once PRN for nausea/vom iting, first dose 12/09/15 15:45:00 CDT labetalol 2015-02 No David 5 mg = 1 M emoria 0-12 Sanchez mL, l 20:45: Injection, Teja 00 IV Push, As Indicated PRN for hypertensi on, first dose 12/09/15 15:45:00 CDT Dilaudid 2015-02 No David 0.5 mg = Me moria 0-12 Sanchez 0.25 mL, l 20:45: Injection, [place] 00 IV Push, q10min PRN for pain severe (7-10), first dose 12/09/15 15:45:00 CDT Xopenex 2015-02 No David 0.63 mg = Me moria 0.63 mg/3 0-12 Sanchez 3 mL, l mL 20:45: Soln, NEB, Teja inhalation 00 Once PRN solution for wheezing, first dose 12/09/15 15:45:00 CDT Demerol HCl 2015-02 No David 12.5 mg = Memoria 0-12 Sanchez 0.25 mL, l 20:45: Injection, [place] 00 IV Push, Once PRN for shivers, first dose 12/09/15 15:45:00 CDT albuterol 2015-02 No David 2.5 mg = 3 Memoria 2.5 mg/3 mL 0-12 Sanchez mL, Soln, l (0.083%) 20:45: NEB, Once Herm agustin inhalation 00 PRN for solution wheezing, first dose 12/09/15 15:45:00 CDT LR 1,000 mL 2015-02 No David 1,000 mL, Memoria 0-12 Sanchez IV, 75 l 20:45: mL/hr, Teja 00 start date 12/09/15 15:45:00 CDT Saline Lock 2015-02 No David 10 mL, M emoria Flush 0-12 Sanchez Soln, IV l 20:45: Push, As [place] 00 Indicated PRN for flush, first dose 12/09/15 15:45:00 CDT diphenhydrA 2015-02 No David 25 mg = Memoria MINE 0-12 Sanchez 0.5 mL, l 20:45: Injection, Teja 00 IV Push, Once PRN for itching, first dose 12/09/15 15:45:00 CDT ondansetron 2015-02 No David 8 mg = 1 Memoria 0-12 Sanchez tabs, l 20:45: Tab-Dis, [place] 00 Oral, Once PRN for nausea/vom iting, first dose 12/09/15 15:45:00 CDT labetalol 2015-02 No David 5 mg = 1 M emoria 0-12 Sanchez mL, l 20:45: Injection, Teja 00 IV Push, As Indicated PRN for hypertensi on, first dose 12/09/15 15:45:00 CDT Dilaudid 2015-02 No David 0.5 mg = Me moria 0-12 Sanchez 0.25 mL, l 20:45: Injection, [place] 00 IV Push, q10min PRN for pain [...] Sanchez 0.25 mL, l 20:45: Injection, Teja IV Push, Once PRN for shivers, first dose 12/09/15 15:45:00 CDT albuterol 2015-02 No David 2.5 mg = 3 Memoria 2.5 mg/3 mL 0-12 Sanchez mL, Soln, l (0.083%) 20:45: NEB, Once Herm agustin inhalation 00 PRN for solution wheezing, first dose 12/09/15 15:45:00 CDT LR 1,000 mL 2015-02 No David 1,000 mL, Memoria 0-12 Sanchez IV, 75 l 20:45: mL/hr, Teja 00 start date 12/09/15 15:45:00 CDT Saline Lock 2015-02 No David 10 mL, M emoria Flush 0-12 Sanchez Soln, IV l 20:45: Push, As Teja 00 Indicated PRN for flush, first dose 12/09/15 15:45:00 CDT diphenhydrA 2015-02 No David 25 mg = Memoria MINE 0-12 Sanchez 0.5 mL, l 20:45: Injection, [place] 00 IV Push, Once PRN for itching, first dose 12/09/15 15:45:00 CDT ondansetron 2015-02 No David 8 mg = 1 Memoria 0-12 Sanchez tabs, l 20:45: Tab-Dis, [place] 00 Oral, Once PRN for nausea/vom iting, first dose 12/09/15 15:45:00 CDT labetalol 2015-02 No David 5 mg = 1 M emoria 0-12 Sanchez mL, l 20:45: Injection, Teja 00 IV Push, As Indicated PRN for hypertensi on, first dose 12/09/15 15:45:00 CDT Dilaudid 2015-02 No David 0.5 mg = Me moria 0-12 Sanchez 0.25 mL, l 20:45: Injection, [place] 00 IV Push, q10min PRN for pain [...] 0-12 Sanchez IV, 75 l 20:45: mL/hr, Teja 00 start date 12/09/15 15:45:00 CDT Saline Lock 2015-02 No David 10 mL, M emoria Flush 0-12 Sanchez Soln, IV l 20:45: Push, As [place] 00 Indicated PRN for flush, first dose 12/09/15 15:45:00 CDT diphenhydrA 2015-02 No David 25 mg = Memoria MINE 0-12 Sanchez 0.5 mL, l 20:45: Injection, Teja 00 IV Push, Once PRN for itching, first dose 12/09/15 15:45:00 CDT ondansetron 2015-02 No David 8 mg = 1 Memoria 0-12 Sanchez tabs, l 20:45: Tab-Dis, [place] 00 Oral, Once PRN for nausea/vom iting, [...] 3 mL, l mL 20:45: Soln, NEB, [place] inhalation 00 Once PRN solution for wheezing, [...] 0-12 Sanchez IV, 75 l 20:45: mL/hr, Teja 00 start date 12/09/15 15:45:00 CDT Saline Lock 2015-02 No David 10 mL, M emoria Flush 0-12 Sanchez Soln, IV l 20:45: Push, As [place] 00 Indicated PRN for flush, first dose 12/09/15 15:45:00 CDT diphenhydrA 2015-02 No David 25 mg = Memoria MINE 0-12 Sanchez 0.5 mL, l 20:45: Injection, Teja 00 IV Push, Once PRN for itching, first dose 12/09/15 15:45:00 CDT ondansetron 2015-02 No David 8 mg = 1 Memoria 0-12 Sanchez tabs, l 20:45: Tab-Dis, [place] 00 Oral, Once PRN for nausea/vom iting, [...] Memoria 0-12 Sanchez mL, l 20:31: Injection, [place] 00 IV, Once, first dose 10/12/16 15:31:00 CDT, stop date 12/09/15 15:31:00 CDT ondansetron 2015-02 No David 4 mg = 2 Memoria 0-12 Sanchez mL, l 20:31: Injection, Teja 00 IV, Once, first dose 12/09/15 15:31:00 CDT, stop date 12/09/15 15:31:00 CDT ondansetron 2015-02 No David 4 mg = 2 Memoria 0-12 Sanchez mL, l 20:31: Injection, [place] 00 IV, Once, first dose 12/09/15 15:31:00 CDT, stop date 12/09/15 15:31:00 CDT metroNIDAZO 2015-02 No David 500 mg, Memoria LE 0-12 Sanchez Soln-IV, l 20:16: IV, Once, [place] 00 first dose 12/09/15 15:16:00 CDT, stop date 12/09/15 15:16:00 CDT metroNIDAZO 2015-02 No David 500 mg, Memoria LE 0-12 Sanchez Soln-IV, l 20:16: IV, Once, Teja 00 first dose 12/09/15 15:16:00 CDT, stop date 12/09/15 15:16:00 CDT metroNIDAZO 2015-02 No David 500 mg, Memoria LE 0-12 Sanchez Soln-IV, l 20:16: IV, Once, Teja 00 first dose 12/09/15 15:16:00 CDT, stop date 12/09/15 15:16:00 CDT metroNIDAZO 2015-02 No David 500 mg, Memoria LE 0-12 Sanchez Soln-IV, l 20:16: IV, Once, [place] 00 first dose 12/09/15 15:16:00 CDT, stop date 12/09/15 15:16:00 CDT metroNIDAZO 2015-02 No David 500 mg, Memoria LE 0-12 Sanchez Soln-IV, l 20:16: IV, Once, Teja 00 first dose 12/09/15 15:16:00 CDT, stop date 12/09/15 15:16:00 CDT dexamethaso 2015-02 No David 8 mg = 2 Memoria ne 0-12 Sanchez mL, l 20:13: Injection, Teja 00 IV, Once, first dose 12/09/15 15:13:00 CDT, stop date 12/09/15 15:13:00 CDT dexamethaso 2015-02 No David 8 mg = 2 Memoria ne 0-12 Sanchez mL, l 20:13: Injection, Teja 00 IV, Once, first dose 12/09/15 15:13:00 CDT, stop date 12/09/15 15:13:00 CDT dexamethaso 2015-02 No David 8 mg = 2 Memoria ne 0-12 Sanchez mL, l 20:13: Injection, Teja 00 IV, Once, first dose 12/09/15 15:13:00 CDT, stop date 12/09/15 15:13:00 CDT dexamethaso 2015-02 No David 8 mg = 2 Memoria ne 0-12 Sanchez mL, l 20:13: Injection, [place] 00 IV, Once, first dose 12/09/15 15:13:00 CDT, stop date 12/09/15 15:13:00 CDT dexamethaso 2015-02 No David 8 mg = 2 Memoria ne 0-12 Sanchez mL, l 20:13: Injection, Teja 00 IV, Once, first dose 12/09/15 15:13:00 CDT, stop date 12/09/15 15:13:00 CDT fentaNYL 2015-02 No David 100 mcg = M emoria 0-12 Sanchez 2 mL, l 20:10: Injection, Teja 00 IV, Once, first dose 12/09/15 15:10:00 CDT, stop date 12/09/15 15:10:00 CDT lidocaine 2015-02 No David 3 mL, Juan Pablo south 0-12 Sanchez Injection, l 20:10: IV, Once, Teja 00 first dose 12/09/15 15:10:00 CDT, stop date 12/09/15 15:10:00 CDT propofol 2015-02 No David 150 mg = Me moria 0-12 Sanchez 15 mL, l 20:10: Emulsion, [place] 00 IV, Once, first dose 12/09/15 15:10:00 CDT, stop date 12/09/15 15:10:00 CDT fentaNYL 2015-02 No David 100 mcg = M emoria 0-12 Sanchez 2 mL, l 20:10: Injection, Teja 00 IV, Once, first dose 12/09/15 15:10:00 CDT, stop date 12/09/15 15:10:00 CDT lidocaine 2015-02 No David 3 mL, Juan Pablo south 0-12 Sanchez Injection, l 20:10: IV, Once, [place] 00 first dose 12/09/15 15:10:00 CDT, stop date 12/09/15 15:10:00 CDT propofol 2015-02 No David 150 mg = Me moria 0-12 Sanchez 15 mL, l 20:10: Emulsion, Teja 00 IV, Once, first dose 12/09/15 15:10:00 CDT, stop date 12/09/15 15:10:00 CDT fentaNYL 2015-02 No David 100 mcg = Sammy emoria 0-12 Sanchez 2 mL, l 20:10: Injection, [place] 00 IV, Once, first dose 12/09/15 15:10:00 [...] CDT, stop date 12/09/15 15:10:00 CDT fentaNYL 2015-02 No David 100 mcg = Sammy emoria 0-12 Sanchez 2 mL, l 20:10: Injection, [place] 00 IV, Once, first dose 12/09/15 15:10:00 CDT, stop date 12/09/15 15:10:00 CDT lidocaine 2015-02 No David 3 mL, Juan Pablo south 0-12 Sanchez Injection, l 20:10: IV, Once, [place] 00 first dose 12/09/15 15:10:00 CDT, stop date 12/09/15 15:10:00 CDT propofol 2015-02 No David 150 mg = Me moria 0-12 Sanchez 15 mL, l 20:10: Emulsion, [place] 00 IV, Once, first dose 12/09/15 15:10:00 CDT, stop date 12/09/15 15:10:00 CDT fentaNYL 2015-02 No David 100 mcg = M harshadria 0-12 Sanchez 2 mL, l 20:10: Injection, [place] 00 IV, Once, first dose 12/09/15 15:10:00 [...] 15:10:00 CDT, stop date 12/09/15 15:10:[address] [facility] 2015-02 No David 1,000 mL, Memor ia Medication 0-12 Sanchez Soln-IV, l 20:07: IV, Once, first dose 12/09/15 15:07:00 CDT, stop date 12/09/15 15:07:[address] [facility] 2015-02 No David 1,000 mL, Memor ia Medication 0-12 Sanchez Soln-IV, l 20:07: IV, Once, first dose 12/09/15 15:07:00 CDT, stop date 12/09/15 15:07:[address] [facility] 2015-02 No David 1,000 mL, Memor ia Medication 0-12 Sanchez Soln-IV, l 20:07: IV, Once, first dose 12/09/15 15:07:00 CDT, stop date 12/09/15 15:07:[address] [facility] 2015-02 No David 1,000 mL, Memor ia Medication 0-12 Sanchez Soln-IV, l 20:07: IV, Once, first dose 12/09/15 15:07:00 CDT, stop date 12/09/15 15:07:00 CDT Misc 2015-02 No David 1,000 mL, Memor ia Medication 0-12 Sanchez Soln-IV, l 20:07: IV, Once, [place] 00 first dose 12/09/15 15:07:00 CDT, stop date 12/09/15 15:07:00 CDT midazolam 2015-02 No David 1 mg = 1 M emoria 0-12 Sanchez mL, l 20:05: Injection, Teja 00 IV, Once, first dose 12/09/15 15:05:00 CDT, stop date 12/09/15 15:05:00 CDT fentaNYL 2015-02 No David 50 mcg = 1 Memoria 0-12 Sanchez mL, l 20:05: Injection, [place] 00 IV, Once, first dose 12/09/15 15:05:00 CDT, stop date 12/09/15 15:05:00 CDT midazolam 2015-02 No David 1 mg = 1 M emoria 0-12 Sanchez mL, l 20:05: Injection, Teja [...] emoria 0-12 Sanchez mL, l 20:05: Injection, Teja [...] emoria 0-12 Sanchez mL, l 20:05: Injection, Teja 00 IV, Once, first dose 12/09/15 15:05:00 CDT, stop date 12/09/15 15:05:00 CDT fentaNYL 2015-02 No David 50 mcg = 1 Memoria 0-12 Sanchez mL, l 20:05: Injection, Teja 00 IV, Once, first dose 12/09/15 15:05:00 CDT, stop date 12/09/15 15:05:00 CDT midazolam 2015- No David 1 mg = 1 M emoria 0-12 Sanchez mL, l 20:05: Injection, Teja 00 IV, Once, first dose 12/09/15 15:05:00 CDT, stop date 12/09/15 15:05:00 CDT fentaNYL 2015-02 No David 50 mcg = 1 Memoria 0-12 Sanchez mL, l 20:05: Injection, [place] 00 IV, Once, first dose 12/09/15 15:05:00 CDT, stop date 12/09/15 15:05:00 CDT fentaNYL 2015-02 No David 50 mcg = 1 Memoria 0-12 Sanchez mL, l 20:01: Injection, Teja 00 IV, Once, first dose 12/09/15 15:01:00 CDT, stop date 12/09/15 15:01:00 CDT midazolam 2015-02 No David 1 mg = 1 M emoria 0-12 Sanchez mL, l 20:01: Injection, [place] 00 IV, Once, first dose 12/09/15 15:01:00 CDT, stop date 12/09/15 15:01:00 CDT fentaNYL 2015-02 No David 50 mcg = 1 Memoria 0-12 Sanchez mL, l 20:01: Injection, [place] 00 IV, Once, first dose 12/09/15 15:01:00 CDT, stop date 12/09/15 15:01:00 CDT midazolam 2015-02 No David 1 mg = 1 M emoria 0-12 Sanchez mL, l 20:01: Injection, Teja 00 IV, Once, first dose 12/09/15 15:01:00 CDT, stop date 12/09/15 15:01:00 CDT fentaNYL 2015-02 No David 50 mcg = 1 Memoria 0-12 Sanchez mL, l 20:01: Injection, Teja 00 IV, Once, first dose 12/09/15 15:01:00 CDT, stop date 12/09/15 15:01:00 CDT midazolam 2015-02 No David 1 mg = 1 M emoria 0-12 Sanchez mL, l 20:01: Injection, [place] 00 IV, Once, first dose 12/09/15 15:01:00 CDT, stop date 12/09/15 15:01:00 CDT fentaNYL 2015-02 No David 50 mcg = 1 Memoria 0-12 Sanchez mL, l 20:01: Injection, [place] 00 IV, Once, first dose 12/09/15 15:01:00 CDT, stop date 12/09/15 15:01:00 CDT midazolam 2015-02 No David 1 mg = 1 M emoria 0-12 Sanchez mL, l 20:01: Injection, Teja 00 IV, Once, first dose 12/09/15 15:01:00 CDT, stop date 12/09/15 15:01:00 CDT fentaNYL 2015-02 No David 50 mcg = 1 Memoria 0-12 Sanchez mL, l 20:01: Injection, [place] 00 IV, Once, first dose 12/09/15 15:01:00 CDT, stop date 12/09/15 15:01:00 CDT midazolam 2015-02 No David 1 mg = 1 M emoria 0-12 Sanchez mL, l 20:01: Injection, Teja 00 IV, Once, first dose 12/09/15 15:01:00 CDT, stop date 12/09/15 15:01:00 CDT Flagyl IVPB 2015-02 No Ali 500 mg, Mem oria 0-12 Mallory Soln-IV, l 19:00: IV Teja Piggyback, Once, infuse over 60 minutes, first dose 12/09/15 14:00:00 CDT, stop date 12/09/15 14:00:00 CDT, Prophylaxi s Flagyl IVPB 2015-02 No Ali 500 mg, Mem oria 0-12 Mallory Soln-IV, l 19:00: IV [place] 00 Piggyback, Once, infuse over 60 minutes, first dose 12/09/15 14:00:00 CDT, stop date 12/09/15 14:00:00 CDT, Prophylaxi s Flagyl IVPB 2015-02 No Ali 500 mg, Mem oria 0-12 Mallory Soln-IV, l 19:00: IV [place] 00 Piggyback, Once, infuse over 60 minutes, first dose 12/09/15 14:00:00 CDT, stop date 12/09/15 14:00:00 CDT, Prophylaxi s Flagyl IVPB 2015-02 No Ali 500 mg, Mem oria 0-12 Mallory Soln-IV, l 19:00: IV [place] 00 Piggyback, Once, infuse over 60 minutes, first dose 12/09/15 14:00:00 CDT, stop date 12/09/15 14:00:00 CDT, Prophylaxi s Flagyl IVPB 2015-02 No Ali 500 mg, Mem oria 0-12 Mallory Soln-IV, l 19:00: IV [place] 00 Piggyback, Once, infuse over 60 minutes, first dose 12/09/15 14:00:00 CDT, stop date 12/09/15 14:00:00 CDT, Prophylaxi s LR 1,000 mL 2015-02 No Marito K 1,000 mL, Memoria 0-12 [place] IV, 30 l 18:22: mL/hr, [place] 00 start date 12/09/15 13:22:00 CDT Lidocaine 2015-02 No Marito K 0.2 mL, Mem oria 2% 0.2 mL 0-12 [place] Injection, l IV Start 18:22: Subcutaneo [facility] [[facility]] 00 us, Once PRN for other [...] l IV Start 18:22: Subcutaneo [facility] [place] [[facility]] 00 us, Once PRN for other (see comment), first dose 12/09/15 13:22:00 CDT LR 1,000 mL 2015-02 No Marito K 1,000 mL, Memoria 0-12 [place] IV, 30 l 18:22: mL/hr, [place] 00 start date 12/09/15 13:22:00 CDT Lidocaine 2015-02 No Marito K 0.2 mL, Mem oria 2% 0.2 mL 0-12 [place] Injection, l IV Start 18:22: Subcutaneo [facility] [place] [facility] 00 us, Once PRN for other (see comment), first dose 12/09/15 13:22:00 CDT Humira 2015-02 No 80 mg, Memoria 0-11 Subcutaneo l 14:47: us, q2wk, [place] 00 0 Refill(s), crohns Humira 2015-02 No 80 mg, Memoria 0-11 Subcutaneo l 14:47: us, q2wk, Teja 00 0 Refill(s), cro[place]ns Humira 2015-02 No 80 mg, Memoria 0-11 Subcutaneo l 14:47: us, q2wk, Teja 00 0 Refill(s), crohns Humira 2015-02 No 80 mg, Memoria 0-11 Subcutaneo l 14:47: us, q2wk, [place] 00 0 Refill(s), crohns Humira 2015-02 No 80 mg, Memoria 0-11 Subcutaneo l 14:47: us, q2wk, Teja 00 0 Refill(s), crohns Humira 2015-02 No 80 mg, Memoria 0-11 Subcutaneo l 14:47: us, q2wk, [place] 00 0 Refill(s), crohns Humira 2015-02 No 80 mg, Memoria 0-11 Subcutaneo l 14:47: us, q2wk, [place] 00 0 Refill(s), crohns Humira 2015-02 No 80 mg, Memoria 0-11 Subcutaneo l 14:47: us, q2wk, Teja 00 0 Refill(s), crohns Humira 2015-02 No 80 mg, Memoria 0-11 Subcutaneo l 14:47: us, q2wk, Teja 00 0 Refill(s), crohns Humira 2015-02 No 80 mg, Memoria 0-11 Subcutaneo l 14:47: us, q2wk, [place] 00 0 Refill(s), crohns adalimumab 2014-02 Yes [...] [facility]codeine 1-25 tablet by Luke s (TYLENOL 00:00: mouth [facility] #[facility]) 300-30 00 every 4 Center mg per (four) tablet hours as needed for Pain for up to 15 doses. acetaminoph 2014-02 Yes 1{tbl} Take [address] en-codeine 1-25 tablet by Luke s (TYLENOL 00:00: [facility] #[facility]) 300-30 00 every 4 Center mg per (four) tablet hours as needed for Pain for up to 15 doses. acetaminoph 2014-02 Yes 1{tbl} Take [address] en-codeine 1-25 tablet by Luke s (TYLENOL 00:00: mouth Medical #3) 300-30 00 every 4 Center mg per (four) tablet hours as needed for Pain for up to 15 doses. acetaminoph 2014-02 Yes 1{tbl} Take [address] en-codeine 1-25 tablet by Luke s (TYLENOL 00:00: mouth [facility] #3) 300-30 00 every 4 Center mg per (four) tablet hours as needed for Pain for up to 15 doses. adalimumab 2003-02 Yes 40mg inject 40 Un lucho 40 mg/0.8 2-16 mg under ity of mL 00:00: the skin. [place] injection [facility] adalimumab 2003- Yes 40mg inject 40 Un lucho 40 mg/0.8 2-16 mg under ity of mL 00:00: the skin. [place] [facility] adalimumab 2003- Yes 40mg inject 40 Un lucho 40 mg/0.8 2-16 mg under ity of mL 00:00: the skin. [place] [facility] adalimumab 2003- Yes 40mg inject 40 Un lucho 40 mg/0.8 2-16 mg under ity of mL 00:00: the skin. [place] injection [address] [place] [address] Vital Signs Vital Name Observation Time Observation Value Comments Source Systolic blood 2022-07-28 11:25:00 129 mm[Hg] Wendi Maganaybold - pressure External Diastolic blood 2022-07-28 11:25:00 82 mm[Hg] Prince leavitt Seybold - pressure External Heart rate 2022-07-28 11:24:00 63 /min Wendi Daly eybold - External Body temperature 2022-07-28 11:24:00 36.67 Estella Zahida ey ybold - External Respiratory rate 2022-07-28 11:24:00 18 /min Zahida rodriguez Seybold - External Body height 2022-07-28 11:24:00 179.1 cm Wendi rodriguezbold - External Body weight 2022-07-28 11:24:00 101.152 kg Wendi rodriguezbold - External BMI 2022-07-28 11:24:00 31.54 kg/m2 Wendi rodriguezbokanchan - External Oxygen saturation in 2022-07-28 11:24:00 94 /min Wendi Nicolas - Arterial blood by External Pulse oximetry Systolic blood 2021-08-08 16:29:00 106 mm[Hg] Univer sity of pressure [facility] Diastolic blood 2021-08-08 16:29:00 71 mm[Hg] Unive rsity of [facility] Heart rate 2021-08-08 16:29:00 73 /min [facility] Body temperature 2021-08-08 16:29:00 37.67 Estella [facility] 2021-08-08 16:29:00 16 /min [facility] Body height 2021-08-08 16:29:00 177.8 cm [facility] Body weight 2021-08-08 16:29:00 95.709 kg [facility] BMI 2021-08-08 16:29:00 30.28 kg/m2 [facility] Oxygen saturation in 2021-08-08 16:29:00 96 /min [facility] of Arterial blood by [facility] Pulse oximetry Branch Systolic blood 2021-01-31 17:43:00 112 mm[Hg] Univer sity of pressure [facility] Diastolic blood 2021-01-31 17:43:00 72 mm[Hg] Unive rsity of pressure [facility] Heart rate 2021-01-31 17:43:00 85 /min [facility] Body temperature 2021-01-31 17:43:00 37.78 Estella Univ ersity of [facility] Respiratory rate 2021-01-31 17:43:00 20 /min Univ ersity of [facility] Body height 2021-01-31 17:43:00 177.8 cm [facility] Body weight 2021-01-31 17:43:00 98.113 kg [facility] [place] [facility] BMI 2021-01-31 17:43:00 31.04 kg/m2 [facility] Oxygen saturation in 2021-01-31 17:43:00 96 /min [facility] Arterial blood by [facility] Pulse oximetry Branch Systolic blood 2020-11-26 11:04:00 118 mm[Hg] Wendi Seybold pressure Diastolic blood 2020-11-26 11:04:00 80 mm[Hg] Kelse y Seybold pressure Heart rate 2020-11-26 11:04:00 62 /min Wendi Daly eybold Body temperature 2020-11-26 11:04:00 36.67 Estella [...] rodriguezbokanchan BMI 2020-11-26 11:04:00 32.05 kg/m2 Wendi escobar Systolic blood 2020-06-13 13:13:00 126 mm[Hg] Univer sity of pressure [place] [facility] Diastolic blood 2020-06-13 13:13:00 83 mm[Hg] Unive rsity of pressure [facility] Branch Heart rate 2020-06-13 13:13:00 63 /min [facility] Body temperature 2020-06-13 13:13:00 36.39 Estella Univ ersity of [facility] Respiratory rate 2020-06-13 13:13:00 18 /min Univ ersity of [facility] Body height 2020-06-13 13:13:00 177.8 cm [facility] [place] [facility] Body weight 2020-06-13 13:13:00 99.247 kg [facility] [place] [facility] BMI 2020-06-13 13:13:00 31.39 kg/m2 Universi ty of [facility] Oxygen saturation in 2020-06-13 13:13:00 97 /min University Arterial blood by [facility] Pulse oximetry Branch Systolic blood 2020-06-13 13:13:00 126 mm[Hg] Univer sity of pressure [facility] Diastolic blood 2020-06-13 13:13:00 83 mm[Hg] Unive rsity of pressure [facility] Heart rate 2020-06-13 13:13:00 63 /min [facility] [place] [facility] Body temperature 2020-06-13 13:13:00 36.39 Estella Univ ersity of [facility] Respiratory rate 2020-06-13 13:13:00 18 /min Univ ersity of [facility] Body height 2020-06-13 13:13:00 177.8 cm Universi ty of [facility] Body weight 2020-06-13 13:13:00 99.247 kg [facility] [place] [facility] BMI 2020-06-13 13:13:00 31.39 kg/m2 [facility] Oxygen saturation in 2020-06-13 13:13:00 97 /min University Arterial blood by [facility] Pulse oximetry Branch Respitory Rate 2019-10-25 13:03:00 Memori al [place] Respitory Rate 2019-10-25 12:50:00 Memori al [place] Systolic (mm Hg) 2019-10-25 12:50:00 Juan Pablo rial [place] Diastolic (mm Hg) 2019-10-25 12:50:00 Mem orial [place] Respitory Rate 2019-10-25 12:40:00 Memori al [place] Systolic (mm Hg) 2019-10-25 12:40:00 Juan Pablo rial [place] Diastolic (mm Hg) 2019-10-25 12:40:00 Mem orial [place] Temperature Oral (F) 2019-10-25 12:30:00 37 Estella [facility] [place] Systolic (mm Hg) 2019-10-25 12:30:00 Juan Pablo rial [place] Diastolic (mm Hg) 2019-10-25 12:30:00 Mem orial [place] Temperature Oral (F) 2019-10-25 11:40:00 36.9 Estella [facility] [place] Height 2019-10-25 11:40:00 177 cm [facility] [place] Height 2019-10-20 22:00:00 177 cm [facility] [place] Respitory Rate 2017-11-24 15:45:00 Memori al [place] Systolic (mm Hg) 2017-11-24 15:45:00 Juan Pablo rial [place]ja Diastolic (mm Hg) 2017-11-24 15:45:00 Mem orial [place] Systolic (mm Hg) 2017-11-24 13:40:00 Juan Pablo rial [place] Diastolic (mm Hg) 2017-11-24 13:40:00 Mem orial [place] Respitory Rate 2017-11-24 13:40:00 Memori al [place] Respitory Rate 2017-11-24 13:30:00 Memori al [place] Heart Rate 2017-11-24 13:30:00 [facility] [place] Systolic (mm Hg) 2017-11-24 13:30:00 Juan Pablo rial [place]ja Diastolic (mm Hg) 2017-11-24 13:30:00 Mem orial [place] Temperature Oral (F) 2017-11-24 13:20:00 36.2 Estella [facility] [place] Heart Rate 2017-11-24 13:20:00 [facility] [place] Temperature Oral (F) 2017-11-24 12:03:00 36.7 Estella [facility] [place] Height 2017-11-24 12:03:00 177 cm [facility] [place] Height 2017-11-19 19:48:00 177 cm [facility] [place] Systolic (mm Hg) 2016-02-05 14:27:00 Juan Pablo rial [place] Respitory Rate 2016-02-05 14:27:00 Memori al [place] Systolic (mm Hg) 2016-02-05 13:40:00 Juan Pablo rial [place] Respitory Rate 2016-02-05 13:40:00 Memori al [place] Heart Rate 2016-02-05 13:40:00 [facility] [place] Systolic (mm Hg) 2016-02-05 13:30:00 Juan Pablo rial [place] Heart Rate 2016-02-05 13:30:00 [facility] [place] Respitory Rate 2016-02-05 13:30:00 Memori al [place] Heart Rate 2016-02-05 13:20:00 [facility] [place] Temperature Oral (F) 2016-02-05 13:20:00 37.1 Estella [facility] [place] Temperature Oral (F) 2016-02-05 13:10:00 36.5 Estella [facility] [place] Weight 2016-02-05 13:10:00 [facility] [place] Height 2016-02-05 13:10:00 177 cm [facility] [place] Weight 2016-01-18 22:32:00 [facility] [place] Height 2016-01-18 22:32:00 177.80 cm [facility] [place] Systolic (mm Hg) 2015-12-09 21:56:00 Juan Pablo rial [place]ja Respitory Rate 2015-12-09 21:56:00 Memori al [place] Heart Rate 2015-12-09 21:20:00 [facility] [place] Systolic (mm Hg) 2015-12-09 21:20:00 Juan Pablo rial [place]ja Respitory Rate 2015-12-09 21:20:00 Memori al [place] Respitory Rate 2015-12-09 21:10:00 Memori al [place] Systolic (mm Hg) 2015-12-09 21:10:00 Juan Pablo rial [place] Heart Rate 2015-12-09 21:10:00 [facility] [place] Heart Rate 2015-12-09 21:00:00 [facility] [place] Temperature Oral (F) 2015-12-09 20:40:00 36.7 Est[facility] Height 2015-12-09 18:26:00 177.80 cm [facility] Weight 2015-12-09 18:26:00 [facility] Temperature Oral (F) 2015-12-09 18:26:00 36.9 [facility] Height 2015-12-08 14:35:00 178 cm [facility] Weight 2015-12-08 14:35:00 [facility] Procedures Procedure Date / Time Performing Clinician Source Performed POCT MOLECULAR FLU 2021-08-08 16:37:00 Unknown, Attending [facility] POCT RAPID FLU A AND B 2021-01-31 00:00:00 David Nelson [facility] COLONOSCOPY FLEXIBLE; 2019-10-25 12:10:00 Randy Silva DIAGNOSTIC; INCL. COLLECTION OF SPECIMENS 13156 (N/A)<sup>1</sup> COLONOSCOPY FLEXIBLE; 2017-11-24 13:15:00 Randy Silva DIAGNOSTIC; INCL. COLLECTION OF SPECIMENS 25163 (Other)<sup>1</sup> EXCISION FULL THICKNESS 2015-12-09 20:26:00 Linwood Tejada TUMOR BY PROCTOTOMY 74003 (Other)<sup>3</sup> Cholecystectomy<sup>1</ 2014-02-27 00:00:00 Juan Pablo Lezama sup> incisional hernia 2008-02-28 00:00:00 [facility] ermann colon 2003-02-27 00:00:00 [facility] resction<sup>2</sup> Colonoscopy [facility] Plan of Care Planned Activity Planned Date Details Comments Source Future Scheduled 2022-10-30 Screening for [facility] Test 15:48:03 malignant neoplasm of colon (procedure) [code = [id number]] Future Scheduled 2022-10-30 Screening for [facility] Test 15:48:03 malignant neoplasm of colon (procedure) [code = 303277038] Future Scheduled 2022-10-30 Screening for [facility] Test 15:48:03 malignant neoplasm of colon (procedure) [code = 893622554] Future Scheduled 2022-10-30 COVID-19 VACCINE (#1) [facility] Test 15:48:03 [code = COVID-19 VACCINE (#1)] Future Scheduled 2022-10-30 Screening for [facility] Test 15:48:03 malignant neoplasm of colon (procedure) [code = 687021508] Future Scheduled 2022-10-30 Screening for [facility] Test 15:48:03 malignant neoplasm of colon (procedure) [code = 167490083] Future Scheduled 2022-10-30 SHINGLES VACCINES (1 Met [facility] Test 15:48:03 of 2) [code = SHINGLES VACCINES (1 of 2)] Future Scheduled 2022-10-30 INFLUENZA VACCINE Method [facility] Test 15:48:03 (#1) [code = INFLUENZA VACCINE (#1)] Future Scheduled 2021-10-27 HEPATITIS B VACCINES Met [facility] Test 12:44:54 (1 of 3 - 3-dose series) [code = HEPATITIS B VACCINES (1 of 3 - 3-dose series)] Future Scheduled 2021-10-27 COVID-19 VACCINE (#1) [facility] Test 12:44:54 [code = COVID-19 VACCINE (#1)] Future Scheduled 2021-10-27 COLONOSCOPY SCREENING [facility] Test 12:44:54 [code = COLONOSCOPY SCREENING] Future Scheduled 2021-10-27 SHINGLES VACCINES (1 Met [facility] Test 12:44:54 of 2) [code = SHINGLES VACCINES (1 of 2)] Future Scheduled 2021-10-27 INFLUENZA VACCINE Method [facility] Test 12:44:54 [code = INFLUENZA VACCINE] Future Scheduled 2021-03-30 INFLUENZA VACCINE Method [facility] Test 13:16:02 [code = INFLUENZA VACCINE] Future Scheduled 2021-03-30 COVID-19 VACCINE (1) Met [facility] Test 13:16:02 [code = COVID-19 VACCINE (1)] Future Scheduled 2021-03-30 COLONOSCOPY SCREENING [facility] Test 13:16:02 [code = COLONOSCOPY SCREENING] Future Scheduled 2021-03-30 SHINGLES VACCINES Method [facility] Test 13:16:02 (#1) [code = SHINGLES VACCINES (#1)] Encounters Start End Encounter Admission Attending Care Care Encounter Source Date/Time Date/Time Type Type Clinicians Facility Department ID 2022-07-28 2022-07-28 Outpatient ALEXIS MCFARLAND WENDI LESLIE [id number] Wendi 06:00:00 06:00:00 Seybol d 2021-08-09 2021-08-09 Letter WilmerKG myers [id number] Univers 00:00:00 00:00:00 (Out) Michelle MCNEIL 350.1.13.10 it y of [facility] 4.2.7.2.686 Carlos Manuel as [id number] [address] 2021-08-08 2021-08-08 Outpatient R URSZULA [facility] [id number] Univers 11:20:00 11:52:37 ELDON chavez [facility] 2021-08-08 2021-08-08 Urgent Bradleymaricarmensammy [facility] [id number] Univers 11:20:00 11:52:37 Care [facility], [facility] 350..13.10 ity of [place] 4.2.7.2.686 Carlos Manuel as EFREM?BLEA [phone] [address] MEDICAL OFFICE [facility] 2021-07-29 2021-07-29 Outpatient MEH48-WQL WENDI LESLIE [id number] Wendi 07:05:00 07:05:00 Seybol alec 2021-07-29 2021-07-29 Outpatient MARCUS ACE [id number] Wendi 05:30:00 05:30:00 Seybol alec 2021-01-31 2021-01-31 Outpatient R LEO [facility] [id number] Univers 11:40:00 12:18:34 DAVID chavez o f [facility] 2021-01-31 2021-01-31 Urgent [facility] [id number] Univers 11:37:31 11:57:31 Care David [facility] 350..13.10 ity of [place] 4.2.7.2.686 Carlos Manuel as EFREM?BLEA [id number] [address] 2020-11-26 2020-11-26 Outpatient XBG16-ESD WENDI LESLIE [id number] Wendi 07:10:00 07:10:00 Seybol d 2020-11-26 2020-11-26 Office Marcus Ace Chem [place] 1.2.840.11 [id number] Wendi 05:58:22 06:28:22 Visit Marcus Ace Chem 350.1.13.13 Seybold 1.2.7.2.686 [id number] 2020-11-26 2020-11-26 Office Marcus Ace [place] 1.2.840.114 [id number] 05:58:22 06:28:22 Visit Chem 350.1.13.13 1.2.7.2.686 [id number] 1 2020-06-13 2020-06-13 Urgent Provider, [facility] 1.2.840.114 [id number] Univers 08:07:39 08:27:39 Care Wen Galicia [facility] 350.1.13.10 ity of [place] 4.2.7.2.686 Carlos Manuel as Professio [phone] [place] dical nal [address] [place] [address] 2020-06-13 2020-06-13 Urgent Provider, [facility] [id number] 08:07:39 08:27:39 Care [facility] 350.1.13.10 Care [place] 4.2.7.2.686 Professio [phone] nal [facility] 2020-06-13 2020-06-13 Outpatient R GRAYSON [facility] [id number] Univers 08:00:00 08:00:00 WEN ity of [facility] 2020-01-31 2020-01-31 Laboratory Lab, [facility] Fam Pob I [facility] 1.2. 840.114 [id number] Univers 15:37:48 15:57:48 Only Maritza [facility] 350.1.13.10 ity of [place] 4.2.7.2.686 Carlos Manuel as Professio [phone] [place] dical nal 0[address] [place] [address] 2020-01-31 2020-01-31 Laboratory Lab, [facility] 1.2.840.114 [id number] 15:37:48 15:57:48 Only Fam Pob I Health 350.1.13.10 [place] 4.2.7.2.686 Professio [phone] critical access hospital 044 [address] 2020-01-31 2020-01-31 Outpatient R [facility] [id number] Univers 15:40:00 15:40:00 ity of [facility] 2020-01-31 2020-01-31 Letter Doctor KG 1.2.840.114 [id number] Univers 00:00:00 00:00:00 (Out) Unassigned, EWA 350.1.13.10 ity of [place] [facility] 4.2.7.2.686 Carlos Manuel as [phone] [address] 2020-01-31 2020-01-31 Letter Doctor KG 1.2.840.114 [id number] 00:00:00 00:00:00 (Out) Unassigned, EWA 350.1.13.10 [place] [facility] 4.2.7.2.686 [phone] [facility] 2019-10-25 2019-10-25 Outpatient nullFlavo [facility] [id number] Memoria 11:27:26 13:13:00 r [facility] 2019-10-25 2019-10-25 Outpatient nullFlavo [facility] [id number] Memoria 11:27:26 13:13:00 judith [facility] 2019-10-25 2019-10-25 Outpatient Arroyo, [id number] 06:27:26 08:13:00 Jaya Navarro 2019-10-25 2019-10-25 Outpatient nullFlavo [facility] [id number] Memoria 06:27:26 08:13:00 judith Lezama 2018-10-26 2018-10-26 Emergency E [facility] [id number] [facility]FB 13:47:00 13:47:00 2017-11-24 2017-11-24 Outpatient nullFlavo [facility] [id number] Memoria 11:43:27 14:37:00 judith [facility] 2017-11-24 2017-11-24 Outpatient [facility] [id number] Memoria 11:43:27 14:37:00 r [facility] 2017-11-24 2017-11-24 Outpatient Dina, [id number] 06:43:27 09:37:00 Jaya Navarro 2017-11-24 2017-11-24 Outpatient nullFlavo [facility] [id number] Memoria 06:43:27 09:37:00 judith gustavo Teja 2016-02-05 2016-02-05 Outpatient 2.16.840. 2.16.840.1. 4 [id number] Memoria 06:23:42 08:10:00 [id number] l 3.2080.20 81.1999 Luis M n 00 Surgica l [facility] 2016-02-05 2016-02-05 Outpatient nullFlavo [facility] [id number] Memoria 06:23:42 08:10:00 judith Lezama 2016-02-05 2016-02-05 Outpatient nullFlavo [facility] [id number] Memoria 06:23:42 08:10:00 judith Lezama 2015-12-09 2015-12-09 Outpatient 2.16.840. 2.16.840.1. 4 [id number] Memoria 13:06:35 16:54:00 [id number] l 3.2080.20 81.1999 Luis M n [facility] 2015-12-09 2015-12-09 Outpatient nullFlavo [facility] [id number] Memoria 13:06:35 16:54:00 judith Lezama 2015-12-09 2015-12-09 Outpatient nullFlavo [facility] [id number] Memoria 13:06:35 16:54:00 judith Lezama Results Test Description Test Time Test Comments Results Result Comments Source POCT MOLECULAR FLU 2021-08-08 16:48:57 Test Item Value Reference Range Interpretation Comme nts POCT Molecular FluA (test code = 03501-2) Negative Negative POCT Molecular FluB (test code = 23493-7) Negative Negative Lab Interpretation (test code = 39130-7) Normal [facility] RAPID FLU A AND B [id number] 18:05:00 Test Item Value Reference Range Interpretation Comments POCT INFLUENZA A (test code = Neg Negative - Negative 3840) POCT INFLUENZA B (test code = Neg Negative - Negative 3841) Lab Interpretation (test code = Normal 36242-4) [facility] 2019-09-02 19:19:00 Test Item Value Reference Range Interpretation Comments SARS-COV2/RT-PCR (test Not Detected Not Detected, Negative code = 7832925) SARS-COV-2 PERFORMING LAB [facility] (test code = 9353428) Negative results do not preclude SARS-CoV-2 infection [...] of the Act.Fact Sheet for Healthcare Pro viders:https://www.[employer]/Documents/Xpert%20Xpress%20SARS%20CoV-2/Fact%20Sh eets/302-7992%40QIHN-BCU-4%20HEALTHCARE%20PROVIDERS%20FACT%20SHEET.pdfFact Sheet for Healthcare Patients:https://www.Ambitious Minds id.[employer]/Documents/Xpert%20Xpress%20SARS%20CoV-2/Fact%20Sheets/3023801%20SARS-COV -2%20PATIENT%20FACT%20SHEET.pdfPerforming Laboratory:[place] [address] [address] [place] [address]
[2022-11-28] MEDS ORDERED: ONDANSETRON 4 MG/2 ML VIAL ONE (23:26)
[2022-11-28] MEDS ORDERED: KETOROLAC 30 MG/ML INJ ONE (23:26)
[2022-11-28] MEDS ORDERED: dexAMETHasone 10 MG/ML VIAL ONE (23:26)
[2022-11-28] MEDS ORDERED: NA CHLORIDE 0.9% 1,000 ML ONE (23:27)
[2022-11-28 23:32] LABS: Absolute Lymphocytes (CBC) 2.7 K/uL (0.7-4.9); Hematocrit 42.3 % (39.6-49.0); Lymphocytes % 15.5 % (15.3-44.8); MCV 86.1 fL (80-100); MPV 8.1 fL (7.6-11.3); Platelets 251 thou/uL (152-406); RBC Red Blood Cell Count 4.91 M/uL (4.33-5.43)
[2022-11-28 23:42] LABS: Albumin 3.6 g/dL (3.4-5.0); Potassium 3.9 mEq/L (3.5-5.1); Protein, Total 8.2 g/dL (6.4-8.2)
--- NOTE | 2022-11-29 01:33 | EDPHYS ---
Physician Documentation [facility] Name: Tony Wen Age: 56 yrs Sex: Male : 1965 Arrival Date: 11/28/2022 Time: 22:37 Bed 13 Private MD: ED Physician Moshe Rosenberg HPI: 11/29 01:14 This 56 yrs old Male presents to ER via Ambulatory with complaints of Nausea/Vomiting. kb 01:14 The patient presents with abdominal pain. Onset: The symptoms/episode began/occurred kb yesterday. The symptoms do not radiate. Associated signs and symptoms: Pertinent positives: nausea and vomiting, Pertinent negatives: constipation, diarrhea, fever. The symptoms are described as constant. Modifying factors: The symptoms are alleviated by nothing, the symptoms are aggravated by nothing. Severity of pain: At its worst the pain was moderate in the emergency department the pain is unchanged. The patient has experienced similar episodes in the past, a few times. The patient has not recently seen a physician. Historical: - Allergies: 11/28 22:53 Cipro; lg3 - Home Meds: 22:53 valsartan 160 mg Oral tab 1 tab once daily [Active]; silodosin oral [Active]; lg3 - PMHx: 22:53 chrons disease; Hypertensive disorder; BPH (Hypertensive disorder); lg3 - PSHx: 22:53 colon resection; hernia repair; lg3 22:54 Cholecystectomy; lg3 - Immunization history:: Adult Immunizations up to date. - Social history:: Smoking status: Patient denies any tobacco usage or history of. Patient uses alcohol, occasionally. Patient/guardian denies using street drugs. ROS: 11/29 01:13 Constitutional: Negative for fever, chills, and weight loss, kb Abdomen/GI: Positive for abdominal pain, nausea and vomiting, All other systems are negative, Exam: 01:13 Constitutional: This is a well developed, well nourished patient who is awake, alert, kb and in no acute distress. Head/Face: Normocephalic, atraumatic. ENT: Moist Mucous membranes Cardiovascular: Regular rate Respiratory: Respirations even and unlabored. No increased work of breathing. Talking in full sentences Skin: Warm, dry with normal turgor. Normal color. MS/ Extremity: Pulses equal, no cyanosis. Neurovascular intact. Full, normal range of motion. Neuro: Awake and alert, GCS 15, oriented to person, place, time, and situation. Moves all extremities. Normal gait. 01:13 Abdomen/GI: Inspection: abdomen appears normal, Bowel sounds: normal, Palpation: soft, in all quadrants, mild abdominal tenderness, in all quadrants, Vital Signs: 11/28 22:51 BP 103 / 66; Pulse 92; Resp 17 S; Temp 98.8(O); Pulse Ox 98% on R/A; Weight 97.52 kg lg3 (R); Height 5 ft. 10 in. (R); 23:26 BP 102 / 68; Pulse 72; Resp 16; Pulse Ox 98% on R/A; Pain 0/10; pf1 11/29 00:15 BP 115 / 67; Pulse 68; Resp 16; Pulse Ox 97% on R/A; Pain 0/10; pf1 01:00 BP 115 / 69; Pulse 72; Resp 16; Pulse Ox 95% on R/A; Pain 0/10; pf1 02:00 BP 113 / 72; Pulse 69; Resp 16; Pulse Ox 95% on R/A; Pain 0/10; pf1 11/28 22:51 Body Mass Index 30.85 (97.52 kg, 177.8 cm) lg3 23:26 Pain Scale: Adult pf1 11/29 00:15 Pain Scale: Adult pf1 01:00 Pain Scale: Adult pf1 02:00 Pain Scale: Adult pf1 MDM: 11/28 22:47 Patient medically screened. kb 11/29 01:13 Differential diagnosis: Nonspecific abd pain, diverticulitis, viral gastroenteritis, kb crohns flare up. Data reviewed: vital signs, nurses notes. 01:33 Differential diagnosis: sbo. Consideration of Admission/Observation Patient was kb admitted/placed on observation. Escalation of care including admission/observation considered. Management of patient was discussed with the following: Hospitalist: YOSVANY Cabral accepts pt for admission under Dr Sands. Dr Vega is international nurse tomorrow for GI. [place]unk Architect: Dr Keith. States he does not treat crohn's disease, pt will need GI . Counseling: I had a detailed discussion with the patient and/or guardian regarding the historical points, exam findings, and any diagnostic results supporting the discharge/admit diagnosis, lab results, radiology results, the need for further work-up and treatment in the hospital. 11/28 23:04 Order name: CBC with Diff; Complete Time: 00:08 kb 11/28 23:04 Order name: CMP; Complete Time: 23:45 kb 11/28 23:04 Order name: Lipase; Complete Time: 23:45 kb 11/29 04:17 Order name: CBC with Automated Diff EDMS 11/29 04:26 Order name: Basic Metabolic Panel EDMS 11/29 04:26 Order name: Magnesium EDMS 11/29 04:36 Order name: Manual Differential EDMS 11/28 23:48 Order name: Abdomen EDMS 11/28 23:04 Order name: IV Saline Lock; Complete Time: 23:20 kb 11/28 23:04 Order name: Labs collected and sent; Complete Time: 23:20 kb Administered Medications: 11/28 23:20 Drug: NS 0.9% IV 1000 ml IV at 1 bolus Per protocol; 1000 mL bolus Route: IV; Rate: 1 pf1 bolus; Site: right antecubital; 11/29 00:14 Follow up: Response: No adverse reaction; Marked relief of symptoms; IV Status: pf1 Completed infusion; IV Intake: 1000ml 11/28 23:20 Drug: TORadol - Ketorolac IVP 15 mg IVP once Route: IVP; Site: right antecubital; pf1 11/29 00:14 Follow up: Response: No adverse reaction; Marked relief of symptoms pf1 11/28 23:20 Drug: Ondansetron IVP 4 mg IVP once; over 2 minutes Route: IVP; Site: right antecubital;pf1 11/29 00:14 Follow up: Response: No adverse reaction; Marked relief of symptoms; Nausea is decreasedpf1 11/28 23:20 Drug: Decadron - Dexamethasone IVP 10 mg IVP once Route: IVP; Site: right antecubital; pf1 11/29 00:14 Follow up: Response: No adverse reaction; Marked relief of symptoms pf1 02:00 Drug: NS 0.9% IV 1000 ml IV at 100 ml/hr once Route: IV; Rate: 100 ml/hr; Site: right pf1 forearm; 02:04 Follow up: IV Status: Infusion continued upon admission pf1 02:04 Follow up: Response: No adverse reaction; Marked relief of symptoms pf1 Disposition Summary: 11/29/22 01:33 Hospitalization Ordered Notes: Hospitalization Status: Inpatient Admission kb Provider: Jayant Sands Condition: Stable kb Problem: new kb Symptoms: are unchanged kb Bed/Room Type: Standard kb Location: Telemetry/MedSurg (Inpatient)(11/29/22 12:22) bd Room Assignment: 413(11/29/22 12:22) bd Diagnosis - Partial small bowel obstruction kb Forms: - Medication Reconciliation Form kb - SBAR form kb - Leadership Thank You Letter kb Signatures: Dispatcher [employer] EDDC Mali Johnson, LEARNING AND DEVELOPMENT INTERN-C LEARNING AND DEVELOPMENT INTERN-Ckb Melani Plascencia Cindy, RN RN cg Rufina Robison, RN RN lg3 Jill Reyes, RN RN pf1 Corrections: (The following items were deleted from the chart) 11/28 23:48 23:05 Abdomen Pelvis W Con+CT.RAD.BRZ ordered. EDDC EDDC 11/29 01:34 01:13 Differential diagnosis: Nonspecific abd pain, diverticulitis, viral kb gastroenteritis, crohns flare up kb 02:50 01:33 Telemetry/MedSurg (Inpatient) kb cg 02:50 01:33 kb cg 12:22 02:50 [facility] ER HOLD cg bd 12:22 02:50 ERHOLD- cg bd
--- NOTE | 2022-11-29 01:33 | ER ---
Nurse's Notes [facility] Name: Tony Wen Age: 56 yrs Sex: Male : 1965 Arrival Date: 11/28/2022 Time: 22:37 Bed 13 Private MD: Diagnosis: Partial small bowel obstruction Presentation: 11/28 22:51 Chief complaint: Patient states: n/v for the last 24 hours. i cant keep anything down. lg3 i have Crohns disease and this happens when i have a bowel impingement. Coronavirus screen: Client denies travel out of the [place] in the last 14 days. At this time, the client does not indicate any symptoms associated with coronavirus-19. Ebola Screen: No symptoms or risks identified at this time. Initial Sepsis Screen: Does the patient meet any 2 criteria? No. Patient's initial sepsis screen is negative. Does the patient have a suspected source of infection? No. Patient's initial sepsis screen is negative. Risk Assessment: Do you want to hurt yourself or someone else? Patient reports no desire to harm self or others. Onset of symptoms was November 27, 2022. 22:51 Method Of Arrival: Ambulatory lg3 22:51 Acuity: LEANNE 3 lg3 Triage Assessment: 22:54 General: Appears in no apparent distress. uncomfortable, Behavior is calm, cooperative. lg3 Pain: Complains of pain in abdomen. EENT: No deficits noted. No signs and/or symptoms were reported regarding the EENT system. Neuro: No deficits noted. Scales Agitation-Sedation Scale (RASS): 0 - Alert and Calm Level of Consciousness is awake, alert, obeys commands, Oriented to person, place, time, situation. Cardiovascular: No deficits noted. Denies chest pain, shortness of breath, Capillary refill < 3 seconds Clubbing of nail beds is absent JVD is absent Patient's skin is warm and dry. Respiratory: No deficits noted. Airway is patent Respiratory effort is even, unlabored, Respiratory pattern is regular, symmetrical. GI: Reports lower abdominal pain, upper abdominal pain, cramping, intolerance of fluids, intolerance of food, nausea, vomiting. : No deficits noted. No signs and/or symptoms were reported regarding the genitourinary system. Derm: No deficits noted. No signs and/or symptoms reported regarding the dermatologic system. Skin is intact, is healthy with good turgor, Skin is dry, Skin is normal, Skin temperature is warm. Musculoskeletal: No deficits noted. No signs and/or symptoms reported regarding the musculoskeletal system. Circulation, motion, and sensation intact. Range of motion: intact in all extremities. Historical: - Allergies: 22:53 Cipro; lg3 - Home Meds: 22:53 valsartan 160 mg Oral tab 1 tab once daily [Active]; silodosin oral [Active]; lg3 - PMHx: 22:53 chrons disease; Hypertensive disorder; BPH (Hypertensive disorder); lg3 - PSHx: 22:53 colon resection; hernia repair; lg3 22:54 Cholecystectomy; lg3 - Immunization history:: Adult Immunizations up to date. - Social history:: Smoking status: Patient denies any tobacco usage or history of. Patient uses alcohol, occasionally. Patient/guardian denies using street drugs. Screenin:56 [facility] ED Fall Risk Assessment (Adult) History of falling in the last 3 months, pf1 including since admission No falls in past 3 months (0 pts) Confusion or Disorientation No (0 pts) Intoxicated or Sedated No (0 pts) Impaired Gait No (0 pts) Mobility Assist Device Used No (0 pt) Altered Elimination No (0 pt) Score/Fall Risk Level 0 - 2 = Low Risk Oriented to surroundings, Maintained a safe environment, Educated pt \T\ family on fall prevention, incl call for assistance when getting out of bed, Assessed \T\ reinforced patient's understanding of fall precautions, Provided non-skid footwear, Hourly rounding (assess needs \T\ fall precautionary measures) done, Used ambulatory aids as needed (educated on \T\ assisted with), Used gait belt as appropriate. 22:56 Abuse screen: Denies threats or abuse. Nutritional screening: No deficits noted. pf1 Tuberculosis screening: No symptoms or risk factors identified. Assessment: 22:56 General: Appears in no apparent distress. comfortable, well groomed, well developed, pf1 Behavior is calm, cooperative, appropriate for age, quiet. 22:56 Pain: Denies pain. Neuro: No deficits noted. Level of Consciousness is awake, alert, pf1 obeys commands, Oriented to person, place, time, situation. Cardiovascular: No deficits noted. Capillary refill < 3 seconds Patient's skin is warm and dry. Respiratory: No deficits noted. Airway is patent Respiratory effort is even, unlabored, Respiratory pattern is regular, symmetrical, Breath sounds are clear bilaterally. GI: Abdomen is round non-distended, Reports nausea, vomiting. : No deficits noted. No signs and/or symptoms were reported regarding the genitourinary system. EENT: No deficits noted. No signs and/or symptoms were reported regarding the EENT system. Derm: No deficits noted. No signs and/or symptoms reported regarding the dermatologic system. 11/29 00:00 Reassessment: Patient appears in no apparent distress at this time. Patient and/or pf1 family updated on plan of care and expected duration. Pain level reassessed. Patient is alert, oriented x 3, equal unlabored respirations, skin warm/dry/pink. Patient states symptoms have improved. 01:00 Reassessment: Patient appears in no apparent distress at this time. Patient and/or pf1 family updated on plan of care and expected duration. Pain level reassessed. Patient is alert, oriented x 3, equal unlabored respirations, skin warm/dry/pink. Patient states symptoms have improved. 02:00 Reassessment: Patient appears in no apparent distress at this time. Patient and/or pf1 family updated on plan of care and expected duration. Pain level reassessed. Patient is alert, oriented x 3, equal unlabored respirations, skin warm/dry/pink. Patient states feeling better. Patient states symptoms have improved. 12:25 Reassessment: Failed attempt to call report to 4th floor, no answer and no nurse [facility] assigned to room 413. 12:34 Reassessment: Nurse to nurse report received by Nitesh on [address] [facility] Vital Signs: 11/28 22:51 BP 103 / 66; Pulse 92; Resp 17 S; Temp 98.8(O); Pulse Ox 98% on R/A; Weight 97.52 kg lg3 (R); Height 5 ft. 10 in. (R); 23:26 BP 102 / 68; Pulse 72; Resp 16; Pulse Ox 98% on R/A; Pain 0/10; pf1 11/29 00:15 BP 115 / 67; Pulse 68; Resp 16; Pulse Ox 97% on R/A; Pain 0/10; pf1 01:00 BP 115 / 69; Pulse 72; Resp 16; Pulse Ox 95% on R/A; Pain 0/10; pf1 02:00 BP 113 / 72; Pulse 69; Resp 16; Pulse Ox 95% on R/A; Pain 0/10; pf1 11/28 22:51 Body Mass Index 30.85 (97.52 kg, 177.8 cm) lg3 23:26 Pain Scale: Adult pf1 11/29 00:15 Pain Scale: Adult pf1 01:00 Pain Scale: Adult pf1 02:00 Pain Scale: Adult pf1 ED Course: 11/28 22:44 Patient arrived in ED. gm2 22:47 Mali Johnson FNP-C is PHCP. kb 22:47 Moshe Rosenberg MD is Attending Physician. kb 22:53 Triage completed. lg3 22:54 Arm band placed on left wrist. lg3 23:00 Patient has correct armband on for positive identification. Bed in low position. Call pf1 light in reach. 23:19 Inserted saline lock: 20 gauge in right forearm, using aseptic technique. Blood ls5 collected. 23:20 CBC with Diff Sent. ls5 23:20 CMP Sent. ls5 23:20 Lipase Sent. ls5 11/29 00:01 Abdomen In Process Unspecified. EDMS 01:33 Jayant Sands is Hospitalizing Provider. kb 02:50 Provided Education on: need for admit. pf1 02:50 No provider procedures requiring assistance completed. pf1 02:50 Patient admitted, IV remains in place. pf1 Administered Medications: 11/28 23:20 Drug: NS 0.9% IV 1000 ml IV at 1 bolus Per protocol; 1000 mL bolus Route: IV; Rate: 1 pf1 bolus; Site: right antecubital; 11/29 00:14 Follow up: Response: No adverse reaction; Marked relief of symptoms; IV Status: pf1 Completed infusion; IV Intake: 1000ml 11/28 23:20 Drug: TORadol - Ketorolac IVP 15 mg IVP once Route: IVP; Site: right antecubital; pf1 11/29 00:14 Follow up: Response: No adverse reaction; Marked relief of symptoms pf1 11/28 23:20 Drug: Ondansetron IVP 4 mg IVP once; over 2 minutes Route: IVP; Site: right antecubital;pf1 11/29 00:14 Follow up: Response: No adverse reaction; Marked relief of symptoms; Nausea is decreasedpf1 11/28 23:20 Drug: Decadron - Dexamethasone IVP 10 mg IVP once Route: IVP; Site: right antecubital; pf1 11/29 00:14 Follow up: Response: No adverse reaction; Marked relief of symptoms pf1 02:00 Drug: NS 0.9% IV 1000 ml IV at 100 ml/hr once Route: IV; Rate: 100 ml/hr; Site: right pf1 forearm; 02:04 Follow up: IV Status: Infusion continued upon admission pf1 02:04 Follow up: Response: No adverse reaction; Marked relief of symptoms pf1 Medication: 02:50 VIS not applicable for this client. pf1 Intake: 00:14 IV: 1000ml; Total: 1000ml. pf1 Outcome: 01:33 Decision to Hospitalize by Provider. kb 02:50 Admitted to ER Hold. Please see [facility] for further documentation. pf1 02:50 Condition: stable 02:50 Instructed on the need for admit, Demonstrated understanding of instructions, 12:41 Admitted to Tele accompanied by tech, via wheelchair, room 413, Report called to [facility] Nitesh 12:42 [address] the [address] [facility] Signatures: Dispatcher [employer] EDMS Mali Johnson, WORKFORCE MANAGEMENT CONSULTANT-C WORKFORCE MANAGEMENT CONSULTANT-CkRufina Camara RN RN 3 Ruby Parker, VALENTINE GRIJALVA 3 Jill Reyes RN RN pf1 Troy Mai ls5 Sona Packer 2 Corrections: (The following items were deleted from the chart) 01:43 01:00 BP 115 / 69; Pulse 16bpm; Resp 72bpm; Pulse Ox 95% RA; Pain 0/10, Adult; pf1 pf1
--- NOTE | 2022-11-29 01:43 | P.HP ---
Certification for Inpatient Patient admitted to: Inpatient With expected LOS: <2 Midnights Patient will require the following post-hospital care: None Practitioner: I am a practitioner with admitting privileges, knowledge of patient current condition, hospital course, and medical plan of care. Services: Services provided to patient in accordance with Admission requirements found in Title 42 Section 412.3 of the Code of Federal Regulations Patient History Date of Service: 11/29/22 Reason for admission: Abdominal pain, nausea vomiting History of Present Illness: 56-year-old male with a past medical history of Crohn's disease, hypertension, BPH presents to the emergency room with abdominal pain and nausea vomiting. He denies constipation, diarrhea, fever. Denies shortness of breath or chest pain. He reports similar episodes in the past. With history of small bowel obstruction. He reports history of colon resection and hernia repair, cholec ystectomy. Plan to admit for partial small bowel obstruction Crohn's disease. Laboratory evaluation leukocytosis WBCs 17.30, early left shift at 75.4, mild hyponatremia at 135, acute on chronic kidney injury BUN 37, creatinine 1.89, glucose 132, CT of the abdomen small bowel obstruction. Allergies ciprofloxacin [From Cipro] Allergy (Verified 09/02/19 02:44) Itching Home Medications: Adalimumab [Humira(Cf) Pen] 40 mg IM SEECOM 09/02/19 Valsartan 1 tab PO DAILY 01/01/21 predniSONE [Deltasone] 20 mg PO DAILY #5 tab 11/22/21 - Past Medical/Surgical History Diabetic: No -: Crohn's disease -: Bowel obstructions -: HTN -: Bowel obstructions x2, third one 05/17/21 -: COLON RESECTION(2003) -: COLONOSCOPY(2019) -: OPEN CHOLECYSTECTOMY -: incisional hernia repair Psychosocial/ Personal History: PCP is Dr. Breen - Family History Father -: Heart disease Notes: bipass Mother -: Diabetes Notes: on insulin - Social History Alcohol use: Yes CD- Drugs: No Caffeine use: No Review of Systems 10-point ROS is otherwise unremarkable Physical Examination - Physical Exam General: Alert, In no apparent distress, Oriented x3 HEENT: Atraumatic, Normocephalic, PERRLA Neck: Supple, 2+ carotid pulse no bruit, JVD not distended Respiratory: Clear to auscultation bilaterally, Normal air movement Cardiovascular: No edema, Normal pulses, Regular rate/rhythm Gastrointestinal: Normal bowel sounds, Soft and benign Musculoskeletal: No clubbing, No swelling Integumentary: No rashes, No breakdown Neurological: Normal gait, Normal speech - Studies Laboratory Data (last 24 hrs) 11/28/22 11/28/22 23:15 23:15 WBC 17.30 H Hgb 14.3 Hct 42.3 Plt Count 251 Sodium 135 L Potassium 3.9 BUN 37 H Creatinine 1.89 H Glucose 132 H Total Bilirubin 1.0 AST 22 ALT 53 Alkaline Phosphatase 86 Lipase 27 Assessment and Plan - Plan Assessment and plan Partial small bowel obstruction Crohn's disease Abdominal pain nausea vomiting Mild hyponatremia Acute kidney injury Assessment and plan Partial small bowel obstruction Crohn's disease Abdominal pain nausea vomiting Diet n.p.o. GI consult IV Flagyl, as needed antiemetics, as needed analgesics Laboratory evaluation leukocytosis WBCs 17.30, early left shift at 75.4, glucose 132, CT of the abdomen small bowel obstruction. Mild hyponatremia Acute kidney injury unknown baseline Gentle IV fluids mild hyponatremia at 135, acute on chronic kidney injury BUN 37, creatinine 1.89, Full code DVT heparin Diet n.p.o. Discharge Plan: Home Plan to discharge in: 48 Hours - Advance Directives Does patient have a Living Will: No Does patient have a Durable POA for Healthcare: No - Code Status/Comfort Care Code Status: Full Code Physician Review: Patient Assessed, Agree with Above Assessment and Plan Critical Care: No Time Spent Managing Pts Care (In Minutes): 50
[2022-11-29] MEDS ORDERED: MORPHINE 4 MG/ML SYR IV PRN (01:50)
[2022-11-29] MEDS ORDERED: ONDANSETRON 4 MG/2 ML VIAL IV PRN (01:50)
[2022-11-29] MEDS ORDERED: SODIUM CHLORIDE 0.9% 10ML INJ IV PRN (01:54)
[2022-11-29] MEDS: NA CHLORIDE 0.9% 1,000 ML IV SCH ×3 (02:00→21:23)
[2022-11-29] MEDS ORDERED: NA CHLORIDE 0.9% 1,000 ML ONE (02:06)
[2022-11-29 04:01] LABS: Absolute Lymphocytes (CBC) 1.4 K/uL (0.7-4.9); Hematocrit 39.6 % (39.6-49.0); Lymphocytes % 10.1 % (15.3-44.8); MCV 86.5 fL (80-100); MPV 8.5 fL (7.6-11.3); Platelets 217 thou/uL (152-406); RBC Red Blood Cell Count 4.58 M/uL (4.33-5.43)
[2022-11-29 04:25] LABS: Magnesium 2.4 mg/dL (1.6-2.4); Potassium 4.6 mEq/L (3.5-5.1)
[2022-11-29 04:36] LABS: Blood Morphology Comment NOT SEEN (NOT SEEN); Platelet Estimate ADEQ
[2022-11-29 05:32] VITALS: BMI 30.7
[2022-11-29] MEDS ORDERED: METOCLOPRAMIDE 10 MG/2mL INJ IV PRN (06:00)
[2022-11-29] MEDS ORDERED: METRONIDAZOLE 500mg IVPB 500 MG/100 ML BAG IV ONE (08:30)
[2022-11-29] MEDS ORDERED: PANTOPRAZOLE 40 MG INJ ONE (08:30)
[2022-11-29] MEDS: PANTOPRAZOLE 40 MG INJ IVP SCH ×2 (08:40→21:13)
[2022-11-29] MEDS: METRONIDAZOLE 500mg IVPB 500 MG/100 ML BAG IV SCH ×2 (08:40→21:14)
[2022-11-29 12:52] VITALS: O2SAT 95
--- NOTE | 2022-11-29 14:57 | CON ---
Date of Consultation: 11/29/2022 Reason For Consultation: Recurrent small bowel obstructions and Crohn disease in the patient. History Of Present Illness: The patient is a 56-year-old white male with history of Crohn disease, r ecurrent small bowel obstructions x3 in the past, presents now with midepigastric, periumbilical pain with nausea, vomiting. CT scan as per ER report revealed partial small bowel obstruction. He denie s any fevers, chills, night sweats, change in bowel habits, melena, hematochezia. He was seen by gas trologist in [place], [place], Dr. Arroyo who knows of these recurrent small bowel obstructions and h as advised conservative therapy. 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 Past Medical History: Significant for Crohn disease, partial small bowel obstructions x3 in the past and now with 4 on this admission, status post transverse colon resection in 2003, open cholecystecto my, and incisional hernia repair for a ventral wall abdominal hernia in the past. Medications: At home include Humira, valsartan, and Deltasone. Allergies: TO CIPRO. Social History: , 2 children. No tobacco. Occasional alcohol. Family History: Father of lung cancer, 60-year pack tobacco history, who had coronary artery di sease and status post CABG as well, at the age of 74. Mother of stroke with a history of d iabetes. Review of Systems: The patient has midepigastric, periumbilical pain with nausea, vomiting, otherwise no symptoms. He d enies any hematemesis, coffee-grounds emesis, melena, hematochezia, diarrhea, constipation, change in bowel habits, change in weight, fevers, chills, night sweats, depression, anxiety, muscle aches, charlie nt aches, backaches. Physical Examination: Vital Signs: 5 feet 10 inches, 214 pounds, BMI of 30.7 kg/sq m. General: He is a well-nourished, well-developed male, in no acute distress. HEENT: Normocephalic, atraumatic. Anicteric. Pupils equal, round, and reactive to light. Extraocu lar movements intact. Oropharynx clear. Neck: Supple. No masses. Respirations: Clear to auscultation bilaterally. Cardiac: Regular rate and rhythm. No gallops or rubs. Abdomen: Positive bowel sounds. Soft, nondistended. Some mild pain in the periumbilical, midepigas tric area, but no peritoneal signs. No rebound or Solo sign. Extremities: No clubbing, cyanosis, or edema. 2+ pulses. Neuro: Alert and oriented x3. Grossly nonfocal. 5/5 motor strength. Sensation intact to light sandra ch. Laboratory Data: The patient has a white count 13.8, down from 17.3 yesterday. Hemoglobin of 14, he matocrit of 40, MCV of 87, platelet count 217, polys of 89%, lymphocytes 10%, monocytes 1%. He has s odium of 133, potassium 4.6, chloride 102, bicarb 30, BUN of 38, creatinine of 1.64, glucose 149, nichole cium of 8.4, magnesium 2.4. Yesterday, he had total bilirubin of 1.0, AST of 22, ALT 53, alkaline ph osphatase 86, total protein 8.2, albumin 3.6, lipase 27. CT abdomen and pelvis revealed partial smal l bowel obstruction by emergency room admission report. Impression: 1.Recurrent partial small bowel obstructions x4 with history of Crohn disease, now with recurrence a gain with midepigastric, periumbilical pain with nausea, vomiting. However, he denies any fevers, ch ills, night sweats, change in bowel habits, change in weight, no blood seen. CT abdomen and pelvis r eveals partial small bowel obstruction. He has a gastrologist in [place], [place], under care fara Martinez, stable except for these flares that had been happening approximately once per year over the past 3 to 4 years. He is amenable to discussion on stricturoplasty with his GI in [place]. 2.History of sepsis with elevated white count of 17.3 down to 13.8 overnight on therapy i n the emergency room with polys of 88%. 3.History of Crohn disease with recurrent partial small bowel obstructions of 3 in the past, now 4 w ith this admission. Transverse colon resection 2003, cholecystectomy, incisional hernia. Recommendations: 1.Continue IV fluids, IV antibiotics. 2.I would add IV steroids in this patient and keep the patient n.p.o. When the patient is better an d also the patient to discuss with marketing services vice president in [place] about possible stricturoplasty fo r probable small bowel stricture causing these recurrent partial small bowel obstructions. CHU/MODL Voice ID: [id number] Report ID: [id number]
[2022-11-29] MEDS ORDERED: INFLUENZA VACCINE (for 6+ mo) 0.5 ML DOSE IMVAC ONE (16:00)
--- NOTE | 2022-11-29 18:38 | RAD REPORT ---
EXAM DESCRIPTION: CT - Abdomen Pelvis Wo Contrast - 11/29/2022 6:48 am CLINICAL HISTORY: ABD PAIN TECHNIQUE: Axial computed tomography images of the abdomen and pelvis without intravenous contrast. Sagittal and coronal reformatted images were created and reviewed. This CT exam was performed usi ng one or more of the following dose reduction techniques: automated exposure control, adjustment o f the mA and/or kV according to patient size, and/or use of iterative reconstruction technique. COMPARISON: CT Abdomen Pelvis dated 11/20/2021 FINDINGS: Lung bases: Bibasilar subsegmental atelectasis/pleural parenchymal scar. Heart: Coronary artery calcification. ABDOMEN: Liver: Unremarkable. Gallbladder and bile ducts: Prior cholecystectomy. No ductal dilation. Pancreas: Mild pancreatic parenchymal atrophy. No ductal dilation. Spleen: Unremarkable. No splenomegaly. Adrenals: Unremarkable. No mass. Kidneys and ureters: Unremarkable. No obstructing stones. No hydronephrosis. Stomach and bowel: Mildly dilated small bowel loops with air-fluid levels in the left paracentral a bdomen. There is a subtle transition to the right of midline subjacent to the ventral abdominal wal l. The remainder of the small bowel and majority of the large bowel is decompressed. Intramural f at within portions of the small and large bowel which can be seen in the setting of prior inflammatio n. Colonic diverticula without adjacent inflammatory change. No mucosal thickening. PELVIS: Appendix: Normal caliber appendix. No findings to suggest acute appendicitis. Bladder: The urinary bladder is decompressed. No stones. Reproductive: The prostate is enlarged. ABDOMEN and PELVIS: Intraperitoneal space: Unremarkable. No free air. No significant fluid collection. Bones/joints: No acute fracture. No dislocation. Soft tissues: Tiny fat-containing umbilical hernia. Small bilateral fat-containing inguinal herni as. Vasculature: No abdominal aortic aneurysm. Lymph nodes: Haziness within the central mesenteric fat with subcentimeter mesenteric lymph nodes a gain demonstrated without significant interval change. IMPRESSION: 1. Findings suggesting partial small bowel obstruction. 2. Other findings as above. Electronically signed by: Atilio Riggs MD 11/29/2022 12:51 AM CDT Due to temporary technical issues with the PACS/Fluency reporting system, reports are being signed by the in house radiologists without review as a courtesy to insure prompt reporting. The interpreting radiologist is fully responsible for the content of the report
[2022-11-30] MEDS: METRONIDAZOLE 500mg IVPB 500 MG/100 ML BAG IV SCH ×2 (01:56→08:31)
[2022-11-30 03:15] LABS: Absolute Lymphocytes (CBC) 2.3 K/uL (0.7-4.9); Hematocrit 37.3 % (39.6-49.0); Lymphocytes % 12.2 % (15.3-44.8); MCV 87.7 fL (80-100); MPV 8.5 fL (7.6-11.3); Platelets 217 thou/uL (152-406); RBC Red Blood Cell Count 4.26 M/uL (4.33-5.43)
[2022-11-30 03:39] LABS: Magnesium 2.2 mg/dL (1.6-2.4); Potassium 4.6 mEq/L (3.5-5.1)
[2022-11-30] MEDS: PANTOPRAZOLE 40 MG INJ IVP SCH (08:31)
[2022-11-30 08:45] VITALS: TEMP 97.1
[2022-11-30 12:02] VITALS: BP 130/69
== END 2022-11-30 15:14 | disposition home or self-care (01) | DRG 386 ==
LOC: ER 22:37 → ERHOLD 11-29 01:49 → 4TH 11-29 12:35
PROVIDERS: ADMIT Hospitalist; ATTEND Hospitalist
DX: K50.012 Crohn's disease of small intestine with intestinal obstruction (principal); E87.1 Hypo-osmolality and hyponatremia; N17.9 Acute kidney failure, unspecified; K50.90 Crohn's disease, unspecified, without complications; I10 Essential (primary) hypertension; N40.0 Benign prostatic hyperplasia without lower urinary tract symptoms; Z88.1 Allergy status to other antibiotic agents; Z90.49 Acquired absence of other specified parts of digestive tract; Z79.52 Long term (current) use of systemic steroids; Z79.899 Other long term (current) drug therapy
CPT/HCPCS: 36415; 74176; 80048; 80053; 83690; 83735; 85025; 96361; 96374; 96375; 99285; C9113; J1100; J2405; J7030